=== PATIENT | female | born 1975 | race African-American/Black ===

== ENCOUNTER 2016-05-12 11:30 | Emergency (ER) | payer OTHER ==
[2016-05-12 11:45] VITALS: BP 169/107
--- NOTE | 2016-05-12 13:05 | ED ---
Throat Pain/Nasal Congestion - HPI Summary HPI Summary: Pt here w/ prolonged sinus pain/pressure/congestion. Has tried 2 rounds of anbx w/o relief through her PCP's office. Sx have been present for 3 weeks. Frustrated, not sleeping past few nights. Has been using afrin nasal spray w/o relief. Developing a frontal forehead now. Denies fever, chills, N/V/D, cough, ST, otalgia, trouble breathing, trouble swallowing. She is seen by ENT and had myringotomy - no otorrhea. Allergies in summer time - has not been taking anti- histamine since. - History of Current Complaint Chief Complaint: EDUpperRespComplaint Time Seen by Provider: 05/12/16 12:01 Hx Obtained From: Patient - Allergies/Home Medications Allergies/Adverse Reactions: Allergies Allergy/AdvReac Type Severity Reaction Status Date / Time Ciprofloxacin [From Cipro] Allergy Severe Hives Verified 02/13/16 15:51 Gatifloxacin [From TeQuin] Allergy Severe Hives Verified 02/13/16 15:51 Iodine Allergy Severe Anaphylatic Verified 02/13/16 15:51 Shock Penicillins Allergy Severe Hives Verified 02/13/16 15:51 Shellfish Allergy Allergy Severe Anaphylatic Verified 02/13/16 15:51 Shock Sulfamethoxazole Allergy Severe Hives Verified 02/13/16 15:51 w/Trimethoprim [From Bactrim] Latex Allergy Intermediate Hives Verified 02/13/16 15:51 PMH/Surg Hx/FS Hx/Imm Hx Previously Healthy: Yes Endocrine/Hematology History: Denies: Hx Anticoagulant Therapy, Hx Diabetes, Hx Sickle Cell Disease, Hx Thyroid Disease Cardiovascular History: Reports: Hx Hypertension - ON DAILY MEDS, STATES CONTROLLED Denies: Hx Pacemaker/ICD, Other Cardiovascular Problems/Disorders Respiratory History: Reports: Hx Asthma - CONTROLLED WITH MEDS, USED INHALERS - STATES OK TODAY, Hx Seasonal Allergies - summer Denies: Hx Chronic Obstructive Pulmonary Disease (COPD), Other Respiratory Problems/Disorders GI History: Reports: Hx Gastroesophageal Reflux Disease - ON MED PT.STATES CONTROLLED Denies: Hx Ulcer, Other GI Disorders History: Denies: Hx Renal Disease, Other Problems/Disorders Musculoskeletal History: Denies: Other Musculoskeletal History Sensory History: Denies: Hx Contacts or Glasses, Hx Deafness, Hx Hearing Aid, Hx Hearing Problem Opthamlomology History: Denies: Hx Contacts or Glasses Neurological History: Denies: Hx Dementia, Hx Seizures, Other Neuro Impairments/Disorders Psychiatric History: Reports: Hx Anxiety, Hx Depression Denies: Hx Panic Disorder, Hx Substance Abuse - Surgical History Surgery Procedure, Year, and Place: 2005- [place] [facility] [place] 2006 - Rt WRIST GANGLION CYST REMOVED [facility] [place] 05/22 Rt EAR LESION REMOVED [facility] [place]. D&C - 2008 [facility] [place] 2010- UTERINE ABLATION [facility] [place]. 2012 Rt FOOT - GANGLION CYST REMOVED- [facility] [place]. 2013 RT FOOT GANDLION CYST REMOVED [facility] [place]. REMOVAL OF OVARIAN [id number]. total hysterectomy september 2014 Hx Anesthesia Reactions: No - Immunization History Date of Tetanus Vaccine: Unknown Infectious Disease History: No Infectious Disease History: Denies: Hx Hepatitis, Hx Human Immunodeficiency Virus (HIV), Traveled Outside the [place] in Last 30 Days - Family History Known Family History: Positive: Hypertension, Diabetes - Social History Alcohol Use: Occasionally Alcohol Amount: MAYBE 1 DRINK/MONTH Hx Substance Use: No Substance Use Type: Reports: None Hx Tobacco Use: Yes - not currently smoking Smoking Status (MU): Former Smoker Type: Cigarettes Amount Used/How Often: 1 [id number] 3 YRS Length of Time of Smoking/Using Tobacco: 14 YRS Have You Smoked in the Last Year: Yes Review of Systems Negative: Fever, Chills Negative: Photophobia, Blurred Vision, Diplopia, Drainage, Erythema Positive: Nasal Discharge - nasal congestion - see HPI. Negative: Sore Throat, Ear Ache Negative: Chest Pain Negative: Shortness Of Breath, Cough Negative: Abdominal Pain, Vomiting, Diarrhea, Nausea Positive: no symptoms reported Musculoskeletal: Negative Negative: Rash Positive: Headache - see HPI Positive: Anxious - concerned All Other Systems Reviewed And Are Negative: Yes Physical Exam Triage Information Reviewed: Yes Vital Signs On Initial Exam: Initial Vitals Temp Pulse Resp BP Pulse Ox 98.4 F 85 20 169/107 99 05/12/16 11:41 05/12/16 11:41 05/12/16 11:41 05/12/16 11:41 05/12/16 11:41 Vital Signs Reviewed: Yes Appearance: Positive: Well-Appearing, Pain Distress - facial congestion causing distress, Obese Skin: Positive: Warm, Dry Head/Face: Positive: Other - sinuses NTTP; no facial asymmetry Eyes: Positive: Normal, EOMI, Conjunctiva Clear, Discharge - B/L watery eyes ENT: Positive: Hearing grossly normal, Nasal congestion - nasal passages appear to be occluded by mucosa, Nasal drainage - boggy turbinates - clear mucous d/c, TMs normal - tubes in place B/L - no d/c. Negative: Tonsillar swelling, Tonsillar exudate Neck: Positive: Supple, Nontender, No Lymphadenopathy Respiratory/Lung Sounds: Positive: Clear to Auscultation, Breath Sounds Present. Negative: Rales, Rhonchi, Stridor, Wheezes Cardiovascular: Positive: Normal, RRR, S1, S2. Negative: Murmur, Rub Musculoskeletal: Positive: Normal, Strength/ROM Intact Neurological: Positive: Normal, Sensory/Motor Intact, Alert, Oriented to Person Place, Time, CN Intact II-III Psychiatric: Positive: Anxious - tearful Diagnostics - Vital Signs Vital Signs Temp Pulse Resp BP Pulse Ox 05/12/16 11:41 98.4 F 85 20 169/107 99 - Laboratory Result Diagrams: 05/12/16 14:57 05/12/16 14:57 Lab Statement: Any lab studies that have been ordered have been reviewed, and results considered in the medical decision making process. EENT Course/Dx - Diagnoses Provider Diagnoses: Chronic sinusitis of both maxillary sinuses - Provider Notifications Discussed Care of Patient with: Dr. Soto - reviewed CT and does not appear to be infection, but rather chronic inflammation - will abstain from anbx and tx w/ steroids - to be followed up by Dr. Lopez next week as pt already sees him or eustachian tube dysfunction Discharge - Discharge Plan Condition: Stable Disposition: HOME Prescriptions: predniSONE TAB* [Deltasone TAB*] 10 mg PO DAILY #18 tab Patient Education Materials: Rhinosinusitis (ED) Referrals: Martínez Lopez MD [Medical Doctor] - Additional Instructions: You appear to have significant chronic sinusitis. You may take the steroids prescribed to you for relief of inflammation and pain. You may also take an anti -histamine before bed to reduce nasal swelling and discharge. Stop using Afrin nasal spray as you may be having a rebound effect. Follow-up with Dr. Lopez next week - call today to schedule an appointment. *If you develop change in vision, fever, vomiting or difficulty breathing, return to ED
--- NOTE | 2016-05-12 14:24 | RAD ---
HISTORY: Sinus pain COMPARISON: None TECHNIQUE: Contiguous axial CT images were obtained through the paranasal sinuses, without intravenous contrast, with coronal and sagittal multiplanar reformations. FINDINGS: NASAL CAVITY: Septum: The septum is midline without deviation. Right: Clear Left: There is a juventino bullosa of the left middle turbinate. SINUSES AND DRAINAGE PATHWAYS: Frontal sinuses: Unremarkable. Maxillary sinuses: There is mucosal thickening of the maxillary sinuses bilaterally, with polypoid mucosal thickening versus mucous retention cyst on the right. There is a small fluid on the left. Ethmoid sinuses: There is mucosal thickening of ethmoid air cells. Ostiomeatal complex: There is effacement of the ostiomeatal units bilaterally, greater on the right than on the left, by mucosal thickening. Sphenoid sinuses: Unremarkable. Anatomic variations: No significant variations. Orbits: Unremarkable. Anterior cranial fossa: Normal. Other findings: There is bilateral proptosis IMPRESSION: 1. MODERATE SINUS MUCOSAL INFLAMMATORY DISEASE, WITH AN AIR-FLUID LEVEL IN THE LEFT MAXILLARY. IN THE CORRECT CLINICAL SETTING, THIS MAY REPRESENT ACUTE SINUSITIS 2. BILATERAL PROPTOSIS.
[2016-05-12] MEDS ORDERED: methylPREDNISolone SOD 40 MG* 1 ML VIAL IM ONE (15:03)
[2016-05-12 15:08] LABS: Hematocrit 41 % (35-47); Hemoglobin 13.6 g/dl (12.0-16.0); Mean Corpuscular HGB Conc 33 g/dl (31-36); Mean Corpuscular Hemoglobin 29 pg (27-31); Mean Corpuscular Volume 88 fL (80-97); Mean Platelet Volume 7 um3 (7.4-10.4); Red Blood Count 4.68 10^6/ul (4.0-5.4); Red Cell Distribution Width 14 % (10.5-15); White Blood Count 6.5 10^3/ul (3.5-10.8)
[2016-05-12 15:23] LABS: BUN/Creatinine Ratio 8.6 (8-20); Calcium 9.7 mg/dL (8.6-10.3); EGFR African American 101.2 (>60); EGFR Non-African American 78.7 (>60); Potassium 3.7 mmol/L (3.5-5.0)
== END 2016-05-12 15:29 | disposition home or self-care (01) ==
LOC: ED 11:30
DX: J32.9 Chronic sinusitis, unspecified (principal); R09.81 Nasal congestion; R51 Headache; F41.9 Anxiety disorder, unspecified
CPT/HCPCS: 36415; 70486; 80048; 83605; 85025; 96372; 99281; J2920

== ENCOUNTER 2017-07-01 10:49 | Emergency (ER) | payer OTHER ==
--- NOTE | 2017-07-01 11:47 | ED ---
Lower Extremity - HPI Summary HPI Summary: 41-year-old female presents with left knee pain for the past 3 days. She states was at work when the pain started. Shee states the pain is at the posterior aspect of her left knee and radiates to the medial aspect of her knee. She denies any fevers or spreading redness. She didn't does not know of any injury. She states it hurts worse when she tries to move it. She has been taking ibuprofen without relief. She is smoker. She denies any recent travel or surgeries. She denies any family history of blood clots. She is not on control. She denies any chest pain or SOB. - History of Current Complaint Chief Complaint: EDExtremityLower Stated Complaint: LEFT KNEE PAIN Time Seen by Provider: 07/01/17 11:37 Pain Intensity: 10 - Allergies/Home Medications Allergies/Adverse Reactions: Allergies Allergy/AdvReac Type Severity Reaction Status Date / Time ciprofloxacin [From Cipro] Allergy Hives Verified 07/01/17 11:30 gatifloxacin [From Tequin] Allergy Rash Verified 07/01/17 11:31 Iodine and Iodide Containing Allergy Hives Verified 07/01/17 11:31 Produc latex Allergy Rash Verified 07/01/17 11:32 Penicillins Allergy Hives Verified 07/01/17 11:31 shellfish derived Allergy Anaphylatic Verified 07/01/17 11:32 Shock Sulfa (Sulfonamide Allergy Hives Verified 07/01/17 11:31 Antibiotics) PMH/Surg Hx/FS Hx/Imm Hx Endocrine/Hematology History: Denies: Hx Anticoagulant Therapy, Hx Diabetes, Hx Sickle Cell Disease, Hx Thyroid Disease Cardiovascular History: Reports: Hx Hypertension - ON DAILY MEDS, STATES CONTROLLED Denies: Hx Pacemaker/ICD, Other Cardiovascular Problems/Disorders Respiratory History: Reports: Hx Asthma - CONTROLLED WITH MEDS, USED INHALERS - STATES OK TODAY, Hx Seasonal Allergies - summer Denies: Hx Chronic Obstructive Pulmonary Disease (COPD), Other Respiratory Problems/Disorders GI History: Reports: Hx Gastroesophageal Reflux Disease - ON MED PT.STATES CONTROLLED Denies: Hx Ulcer, Other GI Disorders History: Denies: Hx Renal Disease, Other Problems/Disorders Musculoskeletal History: Denies: Other Musculoskeletal History Sensory History: Denies: Hx Contacts or Glasses, Hx Deafness, Hx Hearing Aid, Hx Hearing Problem Opthamlomology History: Denies: Hx Contacts or Glasses Neurological History: Denies: Hx Dementia, Hx Seizures, Other Neuro Impairments/Disorders Psychiatric History: Reports: Hx Anxiety, Hx Depression Denies: Hx Panic Disorder, Hx Substance Abuse - Surgical History Surgery Procedure, Year, and Place: 2006[place] [facility] [place]. 2006 - Rt WRIST [place]ION [place]ST [place] [facility] [place] Rt [place] [facility] [place] [facility] [place] [facility] [place] Rt [place] - GANGLION CYST [place] [facility] [place] 2013 RT FOOT GANGLION CYST [place] [facility] [place] REMOVAL OF OVARIAN [id number] Hx Anesthesia Reactions: No - Immunization History Date of Tetanus Vaccine: Unknown Infectious Disease History: No Infectious Disease History: Denies: Hx Hepatitis, Hx Human Immunodeficiency Virus (HIV), Traveled Outside the [place] in Last 30 Days - Family History Known Family History: Positive: None, Hypertension, Diabetes Negative: Blood Disorder - Social History Alcohol Use: Occasionally Alcohol Amount: MAYBE 1 DRINK/MONTH Hx Substance Use: No Substance Use Type: Reports: None Hx Tobacco Use: Yes - not currently smoking Smoking Status (MU): Former Smoker Type: Cigarettes Amount Used/How Often: 1 [id number] 3 YRS Length of Time of Smoking/Using Tobacco: 14 YRS Have You Smoked in the Last Year: Yes Review of Systems Negative: Fever Negative: Chest Pain Negative: Shortness Of Breath Positive: Myalgia - left knee pain All Other Systems Reviewed And Are Negative: Yes Physical Exam Triage Information Reviewed: Yes Vital Signs On Initial Exam: Initial Vitals Temp Pulse Resp BP Pulse Ox 98.2 F 77 16 162/104 98 07/01/17 11:25 07/01/17 11:25 07/01/17 11:25 07/01/17 11:25 07/01/17 11:25 Vital Signs Reviewed: Yes Appearance: Positive: Well-Appearing Skin: Positive: Warm, Dry Head/Face: Positive: Normal Head/Face Inspection Eyes: Positive: Normal, Conjunctiva Clear Respiratory/Lung Sounds: Positive: Clear to Auscultation, Breath Sounds Present Cardiovascular: Positive: Normal, RRR Musculoskeletal: Positive: Strength/ROM Intact - left knee with pain, Other - good pulses, capillary refill<2 secs, tenderness left knee behind knee and medical aspect of knee, neg ballotments, no warmth to area, sensation grossly intact. Negative: Jelena Sign Left, Edema Left Neurological: Positive: Normal Psychiatric: Positive: Normal Diagnostics - Vital Signs Vital Signs Temp Pulse Resp BP Pulse Ox 07/01/17 11:25 98.2 F 77 16 162/104 98 - Laboratory Lab Statement: Any lab studies that have been ordered have been reviewed, and results considered in the medical decision making process. - Radiology knee Xray Interpretation: Positive (See Comments) - arthritis worsening Radiology Interpretation Completed By: Radiologist - Ultrasound No standard instances Ultrasound Interpretation: No Acute Changes Ultrasound Interpretation Completed By: Radiologist Lower Extremity Course/Dx - Course Course Of Treatment: 41-year-old female presents with left knee pain for the past 3 days. She states was at work when the pain started. Shee states the pain is at the posterior aspect of her left knee and radiates to the medial aspect of her knee. She denies any fevers or spreading redness. She didn't does not know of any injury. She states it hurts worse when she tries to move it. She has been taking ibuprofen without relief. She is smoker. She denies any recent travel or surgeries. She denies any family history of blood clots. She is not on control. She denies any chest pain or SOB. on exam tenderness left posterior calf and knee. neurovascular intact. does not appear as septic joint. u/s not show dvt of area but can not totally exclude such. only risk factor has is smoking. will have follow up with primary for continued care as may need repeat u/s. xray shows worsening arthritis. will have follow up with primary and ortho. patient understand and agrees with plan. - Diagnoses Differential Diagnosis/HQI/PQRI: Positive: DVT, Fracture (Closed), Sprain Provider Diagnoses: Left knee pain Discharge - Sign-Out/Discharge Documenting (check all that apply): Discharge - Discharge Plan Condition: Stable Disposition: HOME Patient Education Materials: Knee Pain (ED) Referrals: Sameer Renteria MD [Primary Care Provider] - Immanuel Velez MD [Medical Doctor] - Additional Instructions: Take Tylenol or ibuprofen every 6 hours as needed for pain Apply ice, rest, elevate follow up with primary about knee pain Follow up with ortho Return to ED if develop any new or worsening symptoms - Billing Disposition and Condition Condition: STABLE Disposition: HOME
--- NOTE | 2017-07-01 12:44 | RAD ---
INDICATION: 3 days LEFT posterior knee pain without known injury. COMPARISON: July 01, 2017 radiographs. TECHNIQUE: Cardenas scale, color Doppler, and spectral analysis of the deep veins of the LEFT lower extremity. Vessel compression, phasicity, and augmentation assessed. REPORT: The LEFT common femoral, great saphenous, profunda femoral, and femoral veins are patent. There is venous stasis/slow flow at the proximal segment of the LEFT popliteal vein. The vein is incompletely compressible however tenderness on ultrasound assessment of this site limits ability to perform compression decreasing specificity of exam. The distal segment of the popliteal vein is duplicated and fully compressible without concern for thrombosis. Patency of the paired posterior tibial and peroneal calf veins documented. Patency of the RIGHT common femoral vein documented. IMPRESSION: 1. The proximal segment of the LEFT popliteal vein demonstrates slow flow and stasis. The vein is incompletely compressible however tenderness over this region limits assessment. Nonocclusive DVT at the proximal segment of the popliteal vein is not entirely excluded. 2. The remaining LEFT lower extremity veins appear patent.
--- NOTE | 2017-07-01 12:50 | RAD ---
Indication: LEFT knee pain with weightbearing. Posterior pain for 3 days. Similar episode 3 months ago. Comparison: August 01, 2000 Technique: LEFT knee: AP, tunnel, crosstable lateral, sunrise views. Report: Negative for joint effusion, fracture, or malalignment. Osteophytosis. Mild medial joint space narrowing and lateral facet patellofemoral joint space narrowing. Unremarkable soft tissue contours. 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
[2017-07-01] MEDS ORDERED: Acetaminophen TAB* 325 MG PO ONE (12:56)
[2017-07-01] MEDS ORDERED: Ketorolac INJ* 60 MG/2 ML VIAL IM ONE (12:59)
[2017-07-01 13:27] VITALS: BP 134/87
== END 2017-07-01 13:26 | disposition home or self-care (01) ==
LOC: ED 10:49
DX: M25.562 Pain in left knee (principal); Z87.891 Personal history of nicotine dependence; Z86.79 Personal history of other diseases of the circulatory system; Z87.19 Personal history of other diseases of the digestive system
CPT/HCPCS: 96372; 99283; A9270-GY; J1885

== ENCOUNTER 2017-08-03 23:15 | Emergency (ER) | payer OTHER ==
--- OUTSIDE RECORDS SUMMARY | 2017-08-03 23:41 | XMS REPORT ---
:1975 External Reference #:[id number] Author Organization [facility] Address [address] [address] Phone [phone] Care Team Providers Name Role Phone Elijah Jackson MD Primary Care Physician Unavailable Payers Type Date Identification Numbers Payment Provider Subscriber Commercial Policy Number: [id number] [employer] Margarita Santana PayID: [id number] [address] [address] [place] [address] Problems Description No Information Family History Date Family Member(s) Problem(s) Comments General Hypertension Social History Type Date Description Comments Lives With Son Occupation Currently Working ETOH Use Occasionally consumes alcohol Smoking Patient is a current smoker, smokes every day Allergies, Adverse Reactions, Alerts Date Description Reaction Status Severity Comments 07/15/2017 Ciprofloxacin active hives 07/15/2017 Gatifloxacin active rash 07/15/2017 Iodine active hives 07/15/2017 Latex active rash 07/15/2017 Penicillin active hives 07/15/2017 Sulfa Antibiotics active hives Medications Medication Date Status Form Strength Qnty SIG Indications Ordering Provider No Active 07/15/2017 Active Unknown Medications Vital Signs Date Vital Result Comment 07/15/2017 Height 65 inches 5'5" Weight 270.00 lb BP Systolic 148 mmHg BP Diastolic 94 mmHg Respiratory Rate 20 /min Body Temperature 98.2 F Pain Level 9 BMI (Body Mass Index) 44.9 kg/m2 Results Description No Information Procedures Description No Information Plan of Care 07/15/2017 - Mike Justin M.D.M17.12 Unilateral primary osteoarthritis, left kneeNew Therapy:Physical Therapy
--- OUTSIDE RECORDS SUMMARY | 2017-08-03 23:43 | XMS REPORT ---
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 Body Temperature 97.6 F Respiratory Rate 16 /min Height 65 inches 5'5" Weight 271.25 lb BMI (Body Mass Index) 45.1 kg/m2 04/08/2016 BP Systolic 142 mmHg BP Diastolic 100 mmHg Heart Rate 100 /min Body Temperature 97.5 F Height 65 inches 5'5" Weight 260.12 lb BMI (Body Mass Index) 43.3 kg/m2 06/27/2015 BP Systolic 180 mmHg BP Diastolic 120 mmHg Heart Rate 88 /min Body Temperature 97.8 F Height 65 inches 5'5" Weight 262.00 lb BMI (Body Mass Index) 43.6 kg/m2 04/16/2015 BP Systolic 134 mmHg BP Diastolic 70 mmHg Heart Rate 97 /min Body Temperature 99.1 F Respiratory Rate 20 /min O2 % BldC Oximetry 98 % Height 65 inches 5'5" 04/09/2015 BP Systolic 120 mmHg BP Diastolic 80 mmHg Heart Rate 76 /min Body Temperature 99.0 F Respiratory Rate 18 /min Height 65 inches 5'5" Weight 256.00 lb BMI (Body Mass Index) 42.6 kg/m2 06/14/2014 BP Systolic 132 mmHg BP Diastolic 80 mmHg Heart Rate 80 /min Body Temperature 97.4 F Respiratory Rate 18 /min Height 65 inches 5'5" Weight 247.00 lb BMI (Body Mass Index) 41.1 kg/m2 04/26/2014 BP Systolic 146 mmHg BP Diastolic 84 mmHg Heart Rate 90 /min Body Temperature 98.6 F Respiratory Rate 18 /min Height 65 inches 5'5" Weight 247.38 lb BMI (Body Mass Index) 41.2 kg/m2 03/15/2014 BP Systolic 128 mmHg BP Diastolic 68 mmHg Heart Rate 76 /min Body Temperature 97.3 F Respiratory Rate 18 /min Height 65 inches 5'5" Weight 245.00 lb BMI (Body Mass Index) 40.8 kg/m2 03/01/2014 BP Systolic 148 mmHg BP Diastolic 90 mmHg Heart Rate 72 /min Body Temperature 98.0 F Respiratory Rate 18 /min Height 65 inches 5'5" Weight 243.00 lb BMI (Body Mass Index) 40.4 kg/m2 02/08/2014 BP Systolic 160 mmHg BP Diastolic 110 mmHg Heart Rate 76 /min Body Temperature 97.6 F Respiratory Rate 20 /min Height 65 inches 5'5" Weight 242.00 lb BMI (Body Mass Index) 40.3 kg/m2 01/25/2014 BP Systolic 168 mmHg BP Diastolic 100 mmHg Heart Rate 72 /min Body Temperature 98.1 F Respiratory Rate 18 /min Height 65 inches 5'5" Weight 242.00 lb BMI (Body Mass Index) 40.3 kg/m2 01/20/2014 BP Systolic 180 mmHg BP Diastolic 130 mmHg BP Systolic Recheck 210 mmHg 10 min later BP Diastolic Recheck 140 mmHg 10 min later Heart Rate 84 /min 01/13/2014 BP Systolic 170 mmHg BP Diastolic 140 mmHg BP Systolic Recheck 170 mmHg BP Diastolic Recheck 100 mmHg Heart Rate 84 /min Body Temperature 97.0 F Respiratory Rate 16 /min Height 65 inches 5'5" Weight 238.00 lb BMI (Body Mass Index) 39.6 kg/m2 11/18/2013 BP Systolic 130 mmHg BP Diastolic 90 mmHg Heart Rate 76 /min Body Temperature 97.9 F Respiratory Rate 18 /min Height 65 inches 5'5" Weight 240.00 lb BMI (Body Mass Index) 39.9 kg/m2 07/18/2013 BP Systolic 136 mmHg BP Diastolic 80 mmHg Heart Rate 76 /min Body Temperature 97.4 F Respiratory Rate 20 /min Height 65 inches 5'5" Weight 252.00 lb BMI (Body Mass Index) 41.9 kg/m2 04/15/2013 BP Systolic 140 mmHg BP Diastolic 90 mmHg Heart Rate 74 /min Body Temperature 98.4 F Respiratory Rate 18 /min Height 65 inches 5'5" Weight 250.00 lb BMI (Body Mass Index) 41.6 kg/m2 11/22/2012 BP Systolic 140 mmHg BP Diastolic 90 mmHg Heart Rate 80 /min Body Temperature 97.7 F Respiratory Rate 16 /min Height 65 inches 5'5" Weight 245.38 lb BMI (Body Mass Index) 40.8 kg/m2 11/03/2012 Heart Rate 84 /min Body Temperature 98.2 F Respiratory Rate 15 /min Height 65 inches 5'5" 06/15/2012 BP Systolic 150 mmHg BP Diastolic 100 mmHg Heart Rate 96 /min Body Temperature 98.8 F Height 65 inches 5'5" Weight 249.00 lb BMI (Body Mass Index) 41.4 kg/m2 04/29/2012 BP Systolic 150 mmHg BP Diastolic 90 mmHg Heart Rate 78 /min Body Temperature 98.2 F Height 65 inches 5'5" Weight 249.12 lb BMI (Body Mass Index) 41.5 kg/m2 03/08/2012 BP Systolic 150 mmHg BP Diastolic 110 mmHg Heart Rate 84 /min Body Temperature 98.9 F Height 65 inches 5'5" Weight 243.00 lb BMI (Body Mass Index) 40.4 kg/m2 03/01/2012 BP Systolic 128 mmHg BP Diastolic 90 mmHg Heart Rate 70 /min Body Temperature 97.5 F Height 65 inches 5'5" Weight 243.00 lb BMI (Body Mass Index) 40.4 kg/m2 01/05/2012 BP Systolic 130 mmHg BP Diastolic 90 mmHg Heart Rate 80 /min Body Temperature 98.2 F Height 65 inches 5'5" 12/22/2011 BP Systolic 152 mmHg BP Diastolic 102 mmHg Heart Rate 80 /min Body Temperature 97.6 F Height 65 inches 5'5" Weight 252.00 lb BMI (Body Mass Index) 41.9 kg/m2 10/01/2011 BP Systolic 110 mmHg BP Diastolic 88 mmHg Heart Rate 68 /min Body Temperature 98.9 F Height 65 inches 5'5" Weight 249.00 lb BMI (Body Mass Index) 41.4 kg/m2 09/24/2011 BP Systolic 150 mmHg BP Diastolic 100 mmHg Heart Rate 80 /min Body Temperature 98.4 F Height 65 inches 5'5" Weight 249.00 lb BMI (Body Mass Index) 41.4 kg/m2 09/19/2011 BP Systolic 128 mmHg BP Diastolic 80 mmHg Heart Rate 76 /min Body Temperature 98.4 F Height 65 inches 5'5" Weight 249.00 lb BMI (Body Mass Index) 41.4 kg/m2 08/18/2011 BP Systolic 146 mmHg BP Diastolic 98 mmHg Heart Rate 78 /min Body Temperature 98.4 F Respiratory Rate 24 /min O2 % BldC Oximetry 98 % Height 65 inches 5'5" Weight 250.00 lb BMI (Body Mass Index) 41.6 kg/m2 05/29/2011 BP Systolic 120 mmHg BP Diastolic 82 mmHg Heart Rate 72 /min Body Temperature 98.2 F Respiratory Rate 16 /min Height 65 inches 5'5" Weight 245.00 lb BMI (Body Mass Index) 40.8 kg/m2 04/05/2011 BP Systolic 138 mmHg BP Diastolic 74 mmHg Heart Rate 102 /min Body Temperature 96.2 F Respiratory Rate 22 /min O2 % BldC Oximetry 98 % Height 65 inches 5'5" Weight 245.00 lb BMI (Body Mass Index) 40.8 kg/m2 03/19/2011 BP Systolic 120 mmHg BP Diastolic 80 mmHg Heart Rate 68 /min Height 65 inches 5'5" Weight 249.00 lb BMI (Body Mass Index) 41.4 kg/m2 03/01/2011 BP Systolic 148 mmHg BP Diastolic 84 mmHg Heart Rate 96 /min Body Temperature 96.8 F Height 65 inches 5'5" Weight 140.00 lb BMI (Body Mass Index) 23.3 kg/m2 02/18/2011 BP Systolic 130 mmHg BP Diastolic 90 mmHg Heart Rate 72 /min Body Temperature 97.9 F Respiratory Rate 17 /min O2 % BldC Oximetry 98 % Height 65 inches 5'5" Weight 240.00 lb BMI (Body Mass Index) 39.9 kg/m2 01/24/2011 BP Systolic 154 mmHg BP Diastolic 120 mmHg Heart Rate 72 /min Body Temperature 98.1 F Height 65 inches 5'5" Weight 249.00 lb BMI (Body Mass Index) 41.4 kg/m2 12/25/2010 BP Systolic 136 mmHg BP Diastolic 100 mmHg Heart Rate 120 /min Body Temperature 98.5 F Height 65 inches 5'5" Weight 248.50 lb BMI (Body Mass Index) 41.3 kg/m2 11/14/2010 BP Systolic 118 mmHg BP Diastolic 80 mmHg Heart Rate 56 /min Body Temperature 97.9 F Height 65 inches 5'5" Weight 250.00 lb BMI (Body Mass Index) 41.6 kg/m2 10/23/2010 BP Systolic 130 mmHg BP Diastolic 90 mmHg Heart Rate 72 /min Respiratory Rate 15 /min Height 65 inches 5'5" Weight 250.00 lb BMI (Body Mass Index) 41.6 kg/m2 09/05/2010 BP Systolic 120 mmHg BP Diastolic 86 mmHg Heart Rate 88 /min Body Temperature 98.1 F Height 65 inches 5'5" Weight 246.00 lb BMI (Body Mass Index) 40.9 kg/m2 06/25/2010 BP Systolic 130 mmHg BP Diastolic 72 mmHg Heart Rate 68 /min Respiratory Rate 15 /min Height 65 inches 5'5" Weight 249.00 lb BMI (Body Mass Index) 41.4 kg/m2 03/15/2010 Body Temperature 97.5 F 02/08/2010 BP Systolic 160 mmHg BP Diastolic 120 mmHg Heart Rate 84 /min Body Temperature 97.6 F Respiratory Rate 16 /min O2 % BldC Oximetry 98 % Height 65 inches 5'5" Weight 232.00 lb BMI (Body Mass Index) 38.6 kg/m2 12/31/2009 BP Systolic 120 mmHg BP Diastolic 80 mmHg Heart Rate 77 /min Body Temperature 98.4 F Height 65 inches 5'5" Weight 230.00 lb BMI (Body Mass Index) 38.3 kg/m2 12/25/2009 BP Systolic 130 mmHg BP Diastolic 100 mmHg Heart Rate 78 /min Body Temperature 97.5 F Height 65 inches 5'5" Weight 230.00 lb BMI (Body Mass Index) 38.3 kg/m2 10/29/2009 BP Systolic 118 mmHg BP Diastolic 74 mmHg Heart Rate 66 /min Body Temperature 98.3 F Height 65 inches 5'5" Weight 237.00 lb BMI (Body Mass Index) 39.4 kg/m2 08/15/2009 BP Systolic 120 mmHg BP Diastolic 78 mmHg Heart Rate 88 /min Body Temperature 98.5 F Weight 246.00 lb 05/08/2009 BP Systolic 128 mmHg BP Diastolic 70 mmHg Heart Rate 78 /min Body Temperature 98.3 F Height 65 inches 5'5" Weight 246.00 lb BMI (Body Mass Index) 40.9 kg/m2 04/18/2009 BP Systolic 130 mmHg BP Diastolic 80 mmHg Heart Rate 80 /min Weight 242.00 lb 11/08/2008 BP Systolic 134 mmHg BP Diastolic 90 mmHg Heart Rate 88 /min Height 65 inches 5'5" Weight 243.00 lb BMI (Body Mass Index) 40.4 kg/m2 09/25/2008 BP Systolic 120 mmHg BP Diastolic 60 mmHg Heart Rate 90 /min Body Temperature 98.7 F Weight 246.00 lb 08/28/2008 BP Systolic 130 mmHg BP Diastolic 80 mmHg Heart Rate 64 /min Body Temperature 98.6 F Weight 249.00 lb 07/10/2008 BP Systolic 130 mmHg BP Diastolic 90 mmHg Heart Rate 88 /min Body Temperature 98.7 F Weight 245.00 lb 02/05/2008 BP Systolic 128 mmHg BP Diastolic 80 mmHg Body Temperature 97.7 F Height 65 inches 5'5" Weight 238.00 lb BMI (Body Mass Index) 39.6 kg/m2 01/24/2008 BP Systolic 136 mmHg BP Diastolic 80 mmHg Heart Rate 80 /min Body Temperature 98.6 F Height 65 inches 5'5" Weight 237.00 lb BMI (Body Mass Index) 39.4 kg/m2 09/15/2007 BP Systolic 132 mmHg BP Diastolic 80 mmHg BP Systolic Recheck . mmHg Heart Rate 80 /min Height 65 inches 5'5" Weight 240.00 lb BMI (Body Mass Index) 39.9 kg/m2 07/24/2007 BP Systolic 130 mmHg BP Diastolic 80 mmHg Heart Rate 80 /min Body Temperature 97.9 F Height 65 inches 5'5" Weight 240.00 lb BMI (Body Mass Index) 39.9 kg/m2 06/09/2007 BP Systolic 138 mmHg BP Diastolic 80 mmHg Heart Rate 100 /min Body Temperature 96.0 F Respiratory Rate 16 /min Weight 241.00 lb 05/01/2007 BP Systolic 122 mmHg BP Diastolic 80 mmHg Heart Rate 90 /min Body Temperature 96.2 F Weight 235.00 lb 04/14/2007 BP Systolic 106 mmHg BP Diastolic 70 mmHg Heart Rate 84 /min Weight 237.00 lb 08/19/2006 BP Systolic 100 mmHg BP Diastolic 50 mmHg Heart Rate 72 /min Body Temperature 98.2 F Weight 225.00 lb 07/31/2006 BP Systolic 130 mmHg BP Diastolic 80 mmHg Heart Rate 72 /min Weight 232.00 lb 07/06/2006 BP Systolic 136 mmHg BP Diastolic 90 mmHg Heart Rate 84 /min Body Temperature 98.4 F Weight 230.00 lb 07/03/2006 BP Systolic 120 mmHg BP Diastolic 64 mmHg Heart Rate 84 /min Body Temperature 97.7 F 02/17/2006 BP Systolic 116 mmHg BP Diastolic 76 mmHg Heart Rate 60 /min Body Temperature 98.6 F Weight 218.00 lb 07/14/2005 BP Systolic 120 mmHg BP Diastolic 80 mmHg Body Temperature 99.0 F Weight 208.00 lb 04/23/2005 BP Systolic 118 mmHg BP Diastolic 80 mmHg Heart Rate 84 /min Body Temperature 97.9 F Weight 216.00 lb 04/15/2005 BP Systolic 120 mmHg BP Diastolic 80 mmHg Heart Rate 84 /min Body Temperature 97.6 F Weight 216.00 lb 03/05/2005 BP Systolic 128 mmHg BP Diastolic 86 mmHg Heart Rate 76 /min Body Temperature 96.6 F Weight 210.00 lb 10/15/2004 BP Systolic 138 mmHg BP Diastolic 94 mmHg Heart Rate 78 /min Body Temperature 98.5 F O2 % BldC Oximetry 93 % 07/20/2004 BP Systolic 126 mmHg BP Diastolic 80 mmHg Heart Rate 96 /min Body Temperature 97.9 F 07/18/2004 BP Systolic 130 mmHg LG Cuff BP Diastolic 80 mmHg LG Cuff Heart Rate 72 /min Body Temperature 98.0 F With Motrin Respiratory Rate 20 /min O2 % BldC Oximetry 99 % Weight 217.00 lb 07/15/2004 BP Systolic 122 mmHg BP Diastolic 70 mmHg Heart Rate 80 /min Weight 220.00 lb 04/24/2004 BP Systolic 130 mmHg BP Diastolic 90 mmHg Heart Rate 68 /min Weight 219.00 lb 06/21/2003 BP Systolic 104 mmHg BP Diastolic 70 mmHg Heart Rate 72 /min Body Temperature 97.7 F Weight 240.00 lb 06/14/2003 BP Systolic 126 mmHg BP Diastolic 78 mmHg Heart Rate 80 /min Body Temperature 98.9 F 03/27/2003 BP Systolic 120 mmHg BP Diastolic 90 mmHg Body Temperature 98.5 F Weight 246.00 lb 02/07/2003 BP Systolic 134 mmHg BP Diastolic 82 mmHg Heart Rate 80 /min Weight 240.00 lb 10/17/2002 BP Systolic 136 mmHg BP Diastolic 70 mmHg Heart Rate 82 /min Weight 240.00 lb 08/18/2002 BP Systolic 136 mmHg BP Diastolic 82 mmHg Heart Rate 80 /min Weight 242.00 lb 06/22/2002 BP Systolic 124 mmHg BP Diastolic 84 mmHg Heart Rate 84 /min Body Temperature 96.7 F Weight 234.00 lb 05/06/2002 BP Systolic 130 mmHg BP Diastolic 80 mmHg Heart Rate 88 /min Body Temperature 98.8 F Weight 232.00 lb 12/31/2001 BP Systolic 124 mmHg BP Diastolic 80 mmHg Heart Rate 72 /min Weight 234.00 lb 12/21/2001 BP Systolic 132 mmHg BP Diastolic 92 mmHg Heart Rate 76 /min Body Temperature 97.8 F 08/23/2001 BP Systolic 112 mmHg BP Diastolic 80 mmHg Body Temperature 98.1 F Weight 239.00 lb 02/25/2001 BP Systolic 110 mmHg BP Diastolic 70 mmHg Heart Rate 97.5 /min Weight 237.00 lb 12/25/2000 BP Systolic 134 mmHg BP Diastolic 86 mmHg Heart Rate 88 /min Body Temperature 98.2 F Weight 239.00 lb 12/15/2000 BP Systolic 118 mmHg BP Diastolic 72 mmHg Heart Rate 84 /min Weight 238.00 lb 12/02/2000 BP Systolic 126 mmHg BP Diastolic 80 mmHg Heart Rate 80 /min Body Temperature 97.6 F Respiratory Rate 16 /min Weight 238.00 lb Results Test Date Test Result H/L Range Note CBC Auto Diff 05/12/2016 White Blood Count 6.5 10^3/uL 3.5-10.8 Red Blood Count 4.68 10^6/uL 4.0-5.4 Hemoglobin 13.6 g/dL 12.0-16.0 Hematocrit 41 % 35-47 Mean Corpuscular Volume 88 fL 80-97 Mean Corpuscular Hemoglobin 29 pg 27-31 Mean Corpuscular HGB Conc 33 g/dL 31-36 Red Cell Distribution Width 14 % 10.5-15 Platelet Count 293 10^3/uL 150-450 Mean Platelet Volume 7 um3 Low 7.4-10.4 Abs Neutrophils 3.1 10^3/uL 1.5-7.7 Abs Lymphocytes 2.6 10^3/uL 1.0-4.8 Abs Monocytes 0.3 10^3/uL 0-0.8 Abs Eosinophils 0.5 10^3/uL 0-0.6 Abs Basophils 0 10^3/uL 0-0.2 Abs Nucleated RBC 0 10^3/uL Granulocyte % 47.9 % 38-83 Lymphocyte % 39.3 % 25-47 Monocyte % 5.3 % 1-9 Eosinophil % 6.9 % High 0-6 Basophil % 0.6 % 0-2 Nucleated Red Blood Cells % 0.1 Laboratory test finding 05/12/2016 Lactic Acid 1.0 mmol/L 0.5-2.0 1 Basic Metabolic Panel 05/12/2016 Sodium 138 mmol/L 133-145 Potassium 3.7 mmol/L 3.5-5.0 Chloride 105 mmol/L 101-111 Co2 Carbon Dioxide 28 mmol/L 22-32 Anion Gap 5 mmol/L 2-11 Glucose 83 mg/dL 70-100 Blood Urea Nitrogen 7 mg/dL 6-24 Creatinine 0.81 mg/dL 0.51-0.95 BUN/Creatinine Ratio 8.6 8-20 Calcium 9.7 mg/dL 8.6-10.3 Egfr Non- 78.7 >60 Egfr 101.2 >60 2 Laboratory test finding 04/28/2016 Uric Acid 3.4 mg/dL 2.3-6.6 C Reactive Protein 8.00 mg/L High < 5.00 3 CBC No Diff 04/28/2016 White Blood Count 6.9 10^3/uL 3.5-10.8 Red Blood Count 4.80 10^6/uL 4.0-5.4 Hemoglobin 13.9 g/dL 12.0-16.0 Hematocrit 42 % 35-47 Mean Corpuscular Volume 88 fL 80-97 Mean Corpuscular Hemoglobin 29 pg 27-31 Mean Corpuscular HGB Conc 33 g/dL 31-36 Red Cell Distribution Width 14 % 10.5-15 Platelet Count 306 10^3/uL 150-450 Mean Platelet Volume 7 um3 Low 7.4-10.4 Laboratory test finding 04/28/2016 Erythrocyte Sed Rate 49 mm/Hr High 0- 14 CBC Auto Diff 02/13/2016 White Blood Count 6.2 10^3/uL 3.5-10.8 Red Blood Count 4.61 10^6/uL 4.0-5.4 Hemoglobin 13.5 g/dL 12.0-16.0 Hematocrit 40 % 35-47 Mean Corpuscular Volume 87 fL 80-97 Mean Corpuscular Hemoglobin 29 pg 27-31 Mean Corpuscular HGB Conc 34 g/dL 31-36 Red Cell Distribution Width 14 % 10.5-15 Platelet Count 278 10^3/uL 150-450 Mean Platelet Volume 7 um3 Low 7.4-10.4 Abs Neutrophils 3.7 10^3/uL 1.5-7.7 Abs Lymphocytes 1.7 10^3/uL 1.0-4.8 Abs Monocytes 0.4 10^3/uL 0-0.8 Abs Eosinophils 0.2 10^3/uL 0-0.6 Abs Basophils 0.1 10^3/uL 0-0.2 Abs Nucleated RBC 0.01 10^3/uL Granulocyte % 60.2 % 38-83 Lymphocyte % 28.2 % 25-47 Monocyte % 7.0 % 1-9 Eosinophil % 3.7 % 0-6 Basophil % 0.9 % 0-2 Nucleated Red Blood Cells % 0.1 Comp Metabolic Panel 02/13/2016 Sodium 137 mmol/L 133-145 Potassium 3.7 mmol/L 3.5-5.0 Chloride 105 mmol/L 101-111 Co2 Carbon Dioxide 24 mmol/L 22-32 Anion Gap 8 mmol/L 2-11 Glucose 85 mg/dL 70-100 Blood Urea Nitrogen 10 mg/dL 6-24 Creatinine 0.83 mg/dL 0.51-0.95 BUN/Creatinine Ratio 12.0 8-20 Calcium 9.6 mg/dL 8.6-10.3 Total Protein 8.2 g/dL 6.4-8.9 Albumin 4.4 g/dL 3.2-5.2 Globulin 3.8 g/dL 2-4 Albumin/Globulin Ratio 1.2 1-3 Total Bilirubin 0.50 mg/dL 0.2-1.0 Alkaline Phosphatase 189 U/L High 34-104 Alt 33 U/L 7-52 Ast 32 U/L 13-39 Egfr Non- 76.5 >60 Egfr 98.4 >60 4 Rapid Influenza A & B 02/13/2016 Influenza A Molecular NEGATIVE Negative 5 Molecular Influenza B Molecular NEGATIVE Negative Laboratory test 02/13/2016 Rapid Influenza A SEE RESULT BELOW 6 finding & B Antigen Laboratory test 06/04/2015 Rapid Strep Negative Negative 7 finding Molecular Throat Beta Strep Culture SEE RESULT BELOW 8 Laboratory test 06/04/2015 Rapid Strep A SEE RESULT BELOW 9 finding Laboratory test 10/19/2014 Urine Culture And SEE RESULT BELOW 10 finding Sensitivities CBC Auto Diff 10/19/2014 White Blood Count 5.8 10^3/uL 4.8-10.8 Red Blood Count 4.22 10^6/uL 4.0-5.4 Hemoglobin 12.6 g/dL 12.0-16.0 Hematocrit 39 % 35-47 Mean Corpuscular Volume 91 fL 80-97 Mean Corpuscular Hemoglobin 30 pg 27-31 Mean Corpuscular HGB Conc 33 g/dL 31-36 Red Cell Distribution Width 14 % 10.5-15 Platelet Count 340 10^3/uL 150-450 Mean Platelet Volume 7 um3 Low 7.4-10.4 Abs Neutrophils 3.1 10^3/uL 1.5-7.7 Abs Lymphocytes 2.1 10^3/uL 1.0-4.8 Abs Monocytes 0.3 10^3/uL 0-0.8 Abs Eosinophils 0.4 10^3/uL 0-0.6 Abs Basophils 0 10^3/uL 0-0.2 Abs Nucleated RBC 0 10^3/uL Granulocyte % 52.4 % 38-83 Lymphocyte % 36.2 % 25-47 Monocyte % 4.4 % 1-9 Eosinophil % 6.5 % High 0-6 Basophil % 0.5 % 0-2 Nucleated Red Blood Cells % 0.1 Comp Metabolic Panel 10/19/2014 Sodium 140 mmol/L 133-145 Potassium 3.9 mmol/L 3.5-5.0 Chloride 107 mmol/L 101-111 Co2 Carbon Dioxide 28 mmol/L 22-32 Anion Gap 5 mmol/L 2-11 Glucose 83 mg/dL 70-100 Blood Urea Nitrogen 7 mg/dL 6-24 Creatinine 0.77 mg/dL 0.51-0.95 BUN/Creatinine Ratio 9.1 8-20 Total Protein 7.4 g/dL 6.4-8.9 Albumin 4.0 g/dL 3.2-5.2 Globulin 3.4 g/dL 2-4 Albumin/Globulin Ratio 1.2 1-3 Total Bilirubin 0.30 mg/dL 0.2-1.0 Alkaline Phosphatase 220 U/L High 34-104 Alt 29 U/L 7-52 Ast 23 U/L 13-39 Egfr Non- 83.9 >60 Egfr 107.9 >60 11 Calcium 9.1 mg/dL 8.6-10.3 Laboratory test finding 04/26/2014 Quickstrep POSITIVE Negative Basic Metabolic Profile 01/25/2014 Sodium 142 mEq/L 134-149 Potassium 4.0 mEq/L 3.6-5.5 Chloride 105 mEq/L 94-112 Carbon Dioxide 27 mEq/L 21-32 Glucose 85 mg/dL 70-105 BUN 11 mg/dL 6-26 Creatinine 0.9 mg/dL 0.6-1.4 BUN/Creat Ratio 12.2 CALC 8.0-36.0 Calcium 9.8 mg/dL 8.6-10.2 CBC Electronic (a) 01/25/2014 WBC 7.5 3.6-9.6 RBC 4.18 3.90-5.70 Hemoglobin (Fma/CMC/CTX) 12.8 g/dL 12.1 - 17.2 Hematocrit (Fma/CMC/CTX) 36.8 % 36.1 - 50.3 Platelets 283 10^3/ul 150-400 Lymph% 30.2 % 17.0-48.0 Mixed% 6.4 Neutrophils % 63.4 Mean Corpuscular Vol 88 82.2-97.4 Mean Corpuscular Hemoglobin 30.5 27.6-33.3 Mean Corpuscular Hemo Concen 34.7 32.0-36.0 RDW 14.1 High 11.6-13.7 Mean Platelet Volume 6.2 5.5-11.0 Basic Metabolic Panel 08/10/2013 Sodium 138 mmol/L 133-145 Potassium 4.2 mmol/L 3.7-5.6 Chloride 108 mmol/L 101-111 Co2 Carbon Dioxide 24 mmol/L 22-32 Anion Gap 6 mmol/L 2-11 Glucose 94 mg/dL 70-100 Blood Urea Nitrogen 8 mg/dL 6-24 Creatinine 0.77 mg/dL 0.51-0.95 BUN/Creatinine Ratio 10.4 8-20 Calcium 8.7 mg/dL 8.6-10.3 Egfr Non- 84.8 >60 Egfr 109.1 >60 12 Urinalysis 08/10/2013 Urine Color Yellow Urine Appearance Clear Urine Specific [place] 1.019 1.010-1.030 Urine Esterase Negative Negative Urine Nitrate Negative Negative Urine Urobilinogen Negative E.U./dL Negative Urine Protein Negative mg/dL Negative Urine pH 6.0 5-9 Urine Blood Trace Negative Urine Ketones Negative mg/dL Negative Urine Bilirubin Negative Negative Urine Glucose Negative mg/dL Negative CBC Auto Diff 08/10/2013 White Blood Count 5.9 10^3/uL 4.8-10.8 Red Blood Count 4.17 10^6/uL 4.0-5.4 Hemoglobin 13.0 g/dL 12.0-16.0 Hematocrit 38 % 35-47 Mean Corpuscular Volume 91 fL 80-97 Mean Corpuscular Hemoglobin 31 pg 27-31 Mean Corpuscular HGB Conc 34 g/dL 31-36 Red Cell Distribution Width 13 % 10.5-15 Platelet Count 264 10^3/uL 150-450 Mean Platelet Volume 8 um3 7.4-10.4 Abs Neutrophils 3.7 10^3/uL 1.5-7.7 Abs Lymphocytes 1.7 10^3/uL 1.0-4.8 Abs Monocytes 0.3 10^3/uL 0-0.8 Abs Eosinophils 0.2 10^3/uL 0-0.6 Abs Basophils 0.1 10^3/uL 0-0.2 Abs Nucleated RBC 0.01 10^3/uL Granulocyte % 62.6 % 38-83 Lymphocyte % 28.7 % 25-47 Monocyte % 5.0 % 1-9 Eosinophil % 2.7 % 0-6 Basophil % 1.0 % 0-2 Nucleated Red Blood Cells % 0.1 Urine Microscopic 08/10/2013 Urine WBC None Seen None Seen Urine RBC None Seen None Seen Bacteria Urine None Seen None Seen Laboratory test finding 06/23/2013 Amylase 46 U/L 29-103 Lipase 17 U/L 11.0-82.0 13 Creatine Kinase 167 U/L 10-223 14 C Reactive Protein 13.60 mg/L High < 5.00 15 Comp Metabolic Panel 06/23/2013 Sodium 136 mmol/L 133-145 Potassium TNP mmol/L 3.7-5.6 16 Chloride 106 mmol/L 101-111 Co2 Carbon Dioxide 24 mmol/L 22-32 Glucose 91 mg/dL 70-100 17 Blood Urea Nitrogen 8 mg/dL 6-24 18 Creatinine 0.84 mg/dL 0.51-0.95 19 BUN/Creatinine Ratio 9.5 8-20 Calcium 8.8 mg/dL 8.6-10.3 20 Total Protein 7.3 g/dL 6.4-8.9 21 Albumin 4.1 g/dL 3.2-5.2 22 Globulin 3.2 g/dL 2-4 Albumin/Globulin Ratio 1.3 1-3 Total Bilirubin 0.40 mg/dL 0.2-1.0 23 Alkaline Phosphatase 118 U/L High 34-104 24 Alt 43 U/L 7-52 25 Ast TNP U/L 13-39 26 Egfr Non- 76.7 >60 Egfr 98.7 >60 27 Laboratory test finding 06/23/2013 Lactic Acid 1.0 mmol/L 0.5-2.2 CBC Auto Diff 06/23/2013 White Blood Count 6.4 10^3/uL 4.8-10.8 Red Blood Count 4.29 10^6/uL 4.0-5.4 Hemoglobin 13.1 g/dL 12.0-16.0 Hematocrit 39 % 35-47 Mean Corpuscular Volume 91 fL 80-97 Mean Corpuscular Hemoglobin 31 pg 27-31 Mean Corpuscular HGB Conc 34 g/dL 31-36 Red Cell Distribution Width 13 % 10.5-15 Platelet Count 263 10^3/uL 150-450 Mean Platelet Volume 7 um3 Low 7.4-10.4 Abs Neutrophils 4.5 10^3/uL 1.5-7.7 Abs Lymphocytes 1.5 10^3/uL 1.0-4.8 Abs Monocytes 0.3 10^3/uL 0-0.8 Abs Eosinophils 0.1 10^3/uL 0-0.6 Abs Basophils 0 10^3/uL 0-0.2 Abs Nucleated RBC 0 10^3/uL Granulocyte % 70.0 % 38-83 Lymphocyte % 22.9 % Low 25-47 Monocyte % 4.6 % 1-9 Eosinophil % 1.9 % 0-6 Basophil % 0.6 % 0-2 Nucleated Red Blood Cells % 0 Urine Culture And 06/23/2013 Urine Culture (SEE NOTE) 28 Sensitivities Laboratory test finding 06/23/2013 Lactic Acid 0.6 mmol/L 0.5-2.2 CBC Auto Diff 06/23/2013 White Blood Count 6.8 10^3/uL 4.8-10.8 Red Blood Count 4.10 10^6/uL 4.0-5.4 Hemoglobin 12.7 g/dL 12.0-16.0 Hematocrit 37 % 35-47 Mean Corpuscular Volume 91 fL 80-97 Mean Corpuscular Hemoglobin 31 pg 27-31 Mean Corpuscular HGB Conc 34 g/dL 31-36 Red Cell Distribution Width 13 % 10.5-15 Platelet Count 265 10^3/uL 150-450 Mean Platelet Volume 7 um3 Low 7.4-10.4 Abs Neutrophils 4.3 10^3/uL 1.5-7.7 Abs Lymphocytes 1.9 10^3/uL 1.0-4.8 Abs Monocytes 0.3 10^3/uL 0-0.8 Abs Eosinophils 0.1 10^3/uL 0-0.6 Abs Basophils 0.1 10^3/uL 0-0.2 Abs Nucleated RBC 0.01 10^3/uL Granulocyte % 63.5 % 38-83 Lymphocyte % 28.7 % 25-47 Monocyte % 5.1 % 1-9 Eosinophil % 1.9 % 0-6 Basophil % 0.8 % 0-2 Nucleated Red Blood Cells % 0.1 Comp Metabolic Panel 06/23/2013 Sodium 139 mmol/L 133-145 Potassium 4.5 mmol/L 3.7-5.6 Chloride 109 mmol/L 101-111 Co2 Carbon Dioxide 26 mmol/L 22-32 Anion Gap 4 mmol/L 2-11 Glucose 89 mg/dL 70-100 Blood Urea Nitrogen 6 mg/dL 6-24 Creatinine 0.81 mg/dL 0.51-0.95 BUN/Creatinine Ratio 7.4 Low 8-20 Calcium 8.3 mg/dL Low 8.6-10.3 Total Protein 6.6 g/dL 6.4-8.9 Albumin 3.7 g/dL 3.2-5.2 Globulin 2.9 g/dL 2-4 Albumin/Globulin Ratio 1.3 1-3 Total Bilirubin 0.30 mg/dL 0.2-1.0 Alkaline Phosphatase 118 U/L High 34-104 Alt 37 U/L 7-52 Ast 28 U/L 13-39 Egfr Non- 80.0 >60 Egfr 102.9 >60 29 Urine Microscopic 06/23/2013 Urine WBC 1+ (<10 /hpf) None Seen Urine RBC 1+ (<3 /hpf) None Seen Urine Epithelial Cells 2+ Squamous /hpf None Seen Bacteria Urine 2+ None Seen Laboratory test finding 06/23/2013 Amylase 46 U/L 29-103 Lipase 15 U/L 11.0-82.0 C Reactive Protein 13.25 mg/L High < 5.00 30 Urinalysis 06/23/2013 Urine Color Yellow Urine Appearance Clear Urine Specific [place] 1.012 1.010-1.030 Urine Esterase 1+ Negative Urine Nitrate Negative Negative Urine Urobilinogen Negative E.U./dL Negative Urine Protein Negative mg/dL Negative Urine pH 6.5 5-9 Urine Blood Trace Negative Urine Ketones Negative mg/dL Negative Urine Bilirubin Negative Negative Urine Glucose Negative mg/dL Negative Ua - Micro (Fma) 04/15/2013 Appearance CLOUDY Color YELLOW Glucose NEG Bilirubin NEG Ketones TRACE SP Grav 1.020 Blood MODERATE PH 7.0 Protein NEG Urobil 0.2 Nitrite NEG Leukocytes (Fma/CMC/Centrex) SMALL Hyaline - /Lpf Granular - /Lpf WBC (Fma,Centrex) 9-10 RBC 10-12 Mucus - /Lpf Epith MODERATE /Lpf Bacteria 2+ /Hpf Amorphous - /Lpf Crystals, Fluid (Fma/CMC/CTX) - Z#Comments NOT CLEAN CATCH Laboratory test 04/15/2013 Urine Culture No significant g 31 finding <SEE NOTE> Vaginitis Dna Affirm 04/15/2013 Screen Trichomonas NEGATIVE Vaginalis Dna Screen Gardnerella Vaginalis Dna NEGATIVE Screen Alice Species Dna POSITIVE Laboratory test finding 11/26/2012 Urine Negative Negative 32 Ua - Micro ([facility]) 04/29/2012 Appearance CLEAR Color YELLOW Glucose NEG Bilirubin NEG Ketones NEG SP Grav 1.020 Blood TRACE-INTACT PH 7.0 Protein NEG Urobil 0.2 Nitrite NEG Leukocytes (Fma/CMC/Centrex) NEG Hyaline - /Lpf Granular - /Lpf WBC (a,Centrex) 0-1 RBC 0-2 Mucus - /Lpf Epith MODERATE /Lpf Bacteria TRACE-1+ /Hpf Amorphous - /Lpf Crystals, Fluid (Fma/CMC/CTX) - Z#Comments - Ua - Micro ([facility]) 03/08/2012 Appearance yellow Color clear Glucose neg Bilirubin neg Ketones trace SP Grav >=1.030 Blood small PH 6.0 Protein neg Urobil 0.2 Nitrite neg Leukocytes (Fma/CMC/Centrex) neg Hyaline - /Lpf Granular - /Lpf WBC (a,Centrex) 2-3 RBC 7-10 Mucus - /Lpf Epith few /Lpf Bacteria rare /Hpf Amorphous - /Lpf Crystals, Fluid (Fma/CMC/CTX) - Z#Comments - Ua - Micro (a) 03/01/2012 Appearance CLEAR Color YELLOW Glucose NEG Bilirubin NEG Ketones NEG SP Grav >=1.030 Blood SMALL PH 5.5 Protein SSA:NEG Urobil 0.2 Nitrite NEG Leukocytes (Fma/CMC/Centrex) NEG Hyaline - /Lpf Granular - /Lpf WBC (a,Centrex) 1-3 RBC 0-2 Mucus MODERATE AMOUNT /Lpf Epith MODERATE /Lpf Bacteria TRACE /Hpf Amorphous - /Lpf Crystals, Fluid (Fma/CMC/CTX) - Z#Comments - Laboratory test finding 03/01/2012 Sed Rate (Fma/CMC/Centrex) 27 mm CBC Electronic (a) 03/01/2012 WBC 5.9 3.6-9.6 RBC 4.50 3.90-5.70 Hemoglobin (Fma/CMC/CTX) 13.2 g/dL 12.1 - 17.2 Hematocrit (Fma/CMC/CTX) 41.0 % 36.1 - 50.3 Platelets 290 10^3/ul 150-400 Lymph% 39.0 20.5-51.1 Mixed% 5.0 Neutrophils % 56.0 Mean Corpuscular Vol 91 82.2-97.4 Mean Corpuscular Hemoglobin 29.3 27.6-33.3 Mean Corpuscular Hemo Concen 32.1 32.0-36.0 RDW 11.9 11.6-13.7 Mean Platelet Volume 7.0 6.5-11.0 Ua - Micro (a) 03/19/2011 Appearance CLEAR Color YELLOW Glucose NEG Bilirubin NEG Ketones NEG SP Grav 1.025 Blood SMALL PH 5.5 Protein NEG Urobil 0.2 Nitrite NEG Leukocytes (Fma/CMC/Centrex) NEG Hyaline - /Lpf Granular - /Lpf WBC (Fma,Centrex) 0-1 RBC 3-5 Mucus SMALL AMOUNT /Lpf Epith MANY /Lpf Bacteria TRACE /Hpf Amorphous - /Lpf Crystals, Fluid (Fma/CMC/CTX) - Z#Comments NOT CLEAN CATCH Laboratory test finding 03/19/2011 Thin Prep W/HPV(Lsil/CHINO/Asc) SEE NOTE 33 Ua - Micro (a) 12/25/2010 Appearance clear Color yellow Glucose neg Bilirubin neg Ketones neg SP Grav 1.025 Blood small PH 5.5 Protein neg Urobil 0.2 Nitrite neg Leukocytes (Fma/CMC/Centrex) neg Hyaline - /Lpf Granular - /Lpf WBC (Fma,Centrex) 1-2 RBC 2-3 Mucus - /Lpf Epith few /Lpf Bacteria 1+ /Hpf Amorphous - /Lpf Crystals, Fluid (Fma/CMC/CTX) - Z#Comments - Laboratory test finding 12/25/2010 Urine Culture (a/[facility]) POSITIVE Type And Screen 05/24/2010 Patient Blood Type O POSITIVE 34 Antibody Screen NEGATIVE 34 Specimen Discard Date 06/07/10 34, 35 (HCG) Urine 05/24/2010 Specific [place] 1.015 1.010-1.030 34 Urine NEGATIVE Negative 34, 36 CBC With Electronic Diff 05/24/2010 White Blood Count 6.9 CUMM 4.8-10.8 34 Red Cell Count 4.11 CUMM Low 4.2-5.4 34 Hemoglobin 12.3 g/dL 12.0-16.0 34 Hematocrit 37 % 35-47 34 Mean Corpuscular Volume 91 um3 79-97 34 Mean Corpuscular Hemoglob 30 pg 27-31 34 Mean Corpuscular HGB Cone 33 g/dL 32-36 34 Redcell Distribution WDTH 14 % 10.5-15 34 Platelet Count 276 CUMM 150-450 34 Mean Platelet Volume 7.8 um3 7.4-10.4 34 Gran % 66.5 % 38-83 34 Lymph % 24.3 % Low 25-47 34 Mononuclear % 5.2 % 1-9 34 Eosinophil % 3.2 % 0-6 34 Basophil % 0.8 % 0-2 34 Abs Lymphs 1.7 1.0-4.8 34 Abs Mononuclear 0.4 0-0.8 34 Absolute Neutrophil Count 4.6 1.5-7.7 34 Abs Eosinophils 0.2 0-0.6 34 Abs Basophils 0.1 0-0.2 34 Wet Prep 05/13/2010 Wet Prep SMEAR REVIEWED B 37 <SEE NOTE> GC/Chlamydia Aptima 05/13/2010 Chlamydia Trachomatis N 38 Rna GC (N. Gonorrhoeae) 05/13/2010 GC (N. Gonorrhoeae) N 39 Rna Rna CBC With Electronic 05/13/2010 White Blood Count 6.7 CUMM 4.8-10.8 Diff Red Cell Count 4.15 CUMM Low 4.2-5.4 Hemoglobin 12.6 g/dL 12.0-16.0 Hematocrit 38 % 35-47 Mean Corpuscular Volume 90 um3 79-97 Mean Corpuscular Hemoglob 30 pg 27-31 Mean Corpuscular HGB Cone 34 g/dL 32-36 Redcell Distribution WDTH 14 % 10.5-15 Platelet Count 266 CUMM 150-450 Mean Platelet Volume 7.2 um3 Low 7.4-10.4 Gran % 47.0 % 38-83 Lymph % 43.8 % 25-47 Mononuclear % 5.5 % 1-9 Eosinophil % 3.3 % 0-6 Basophil % 0.4 % 0-2 Abs Lymphs 2.9 1.0-4.8 Abs Mononuclear 0.4 0-0.8 Absolute Neutrophil Count 3.1 1.5-7.7 Abs Eosinophils 0.2 0-0.6 Abs Basophils 0 0-0.2 Laboratory test finding 05/13/2010 (HCG) Serum NEGATIVE Negative 40 Comp Metabolic Panel 05/13/2010 Sodium 135 mmol/L 135-145 Potassium 3.7 mmol/L 3.5-5.0 Chloride 105 mmol/L 101-111 Co2 (Carbon Dioxide) 23.0 mmol/L 22-32 Anion Gap 7.0 mmol/L 2-11 41 Glucose 87 mg/dL 70-100 BUN 11 mg/dL 6-24 Creatinine 0.90 mg/dL 0.50-1.40 One Over Creatinine 1.10 BUN/Creatinine Ratio 12.2 8-20 Calcium 9.1 mg/dL 8.1-9.9 Total Protein 7.3 GM/DL 6.2-8.1 Albumin 3.8 GM/DL 3.6-5.4 Globulin 3.5 GM/DL 2-4 Albumin/Globulin Ratio 1.1 1-3 Bilirubin Total 0.4 mg/dL 0.4-1.5 42 Alkaline Phosphatase 116 U/L High 30-110 Alt (SGPT) 33 U/L 14-54 Ast (Sgot) 41 U/L 12-42 eGFR Non- 76.6 > 60 eGFR 92.7 > 60 43 Urinalysis W/Microscopic 05/13/2010 Ua Color YELLOW Yellow Appearance-Urine CLEAR Clear Specific [place]-Ur 1.011 1.010-1.030 Esterase-Urine 1+ Negative Nitrite NEGATIVE Negative [id number] NEGATIVE Negative Protein-Urine NEGATIVE Negative PH-Urine 6.0 5-9 Blood-Urine 3+ Negative Ketones-Urine NEGATIVE Negative Bilirubin-Ur NEGATIVE Negative Glucose-Urine NEGATIVE Negative WBC-Urine 2-6 0-5 RBC-Urine 0-4 0-2 Epith Cells-Ur MODERATE None Bacteria-Urine 1+ None Ua Comments FEW BUDDING YEAS <SEE NOTE> 44 Urine Culture & 05/13/2010 Urine Culture NF1 45 Sensitivi Sensitivi Wound Culture 03/15/2010 Wound Culture Mixed skin helga 46 <SEE NOTE> .Gram Stain Additional NO EPI, NO WBC, <SEE NOTE> 47 Wound Culture 02/08/2010 Wound Culture Mixed skin helga <SEE NOTE> 48 .Gram Stain Additional NO EPI, NO WBC, <SEE NOTE> 49 Wound Culture 12/25/2009 .Gram Stain Additional NO EPI, NO WBC, <SEE 50 NOTE> Wound Culture Staphylococcus a <SEE NOTE> 51 Laboratory test finding 10/21/2009 Troponin-I (TnI) 0.01 NG/ML 52 TSH 3.32 MIU/ML 0.34-5.60 CBC With Electronic Diff 10/21/2009 White Blood Count 7.5 CUMM 4.8-10.8 Red Cell Count 3.70 CUMM Low 4.2-5.4 Hemoglobin 12.0 g/dL 12.0-16.0 Hematocrit 34 % Low 35-47 Mean Corpuscular Volume 91 um3 79-97 Mean Corpuscular Hemoglob 33 pg High 27-31 Mean Corpuscular HGB Cone 36 g/dL 32-36 Redcell Distribution WDTH 13 % 10.5-15 Platelet Count 231 CUMM 150-450 Mean Platelet Volume 6.7 um3 Low 7.4-10.4 Gran % 70.9 % 38-83 Lymph % 19.7 % Low 25-47 Mononuclear % 5.7 % 1-9 Eosinophil % 2.5 % 0-6 Basophil % 1.2 % 0-2 Abs Lymphs 1.5 1.0-4.8 Abs Mononuclear 0.4 0-0.8 Absolute Neutrophil Count 5.3 1.5-7.7 Abs Eosinophils 0.2 0-0.6 Abs Basophils 0.1 0-0.2 Comp Metabolic Panel 10/21/2009 Sodium 139 mmol/L 135-145 Potassium 4.1 mmol/L 3.5-5.0 Chloride 113 mmol/L High 101-111 Co2 (Carbon Dioxide) 21.0 mmol/L Low 22-32 Anion Gap 5.0 mmol/L 2-11 53 Glucose 95 mg/dL 70-100 54 BUN 11 mg/dL 6-24 Creatinine 0.80 mg/dL 0.50-1.40 One Over Creatinine 1.20 BUN/Creatinine Ratio 13.8 8-20 Calcium 8.6 mg/dL 8.1-9.9 55 Total Protein 7.3 GM/DL 6.2-8.1 Albumin 3.6 GM/DL 3.6-5.4 Globulin 3.7 GM/DL 2-4 Albumin/Globulin Ratio 1.0 1-3 Bilirubin Total 0.5 mg/dL 0.4-1.5 56 Alkaline Phosphatase 113 U/L High 30-110 Alt (SGPT) 26 U/L 14-54 Ast (Sgot) 33 U/L 12-42 eGFR Non- 87.8 > 60 eGFR 106.2 > 60 57 CBC With Electronic Diff Stat 07/18/2009 White Blood Count 6.6 CUMM 4.8- 10.8 Red Cell Count 4.06 CUMM Low 4.2-5.4 Hemoglobin 12.7 g/dL 12.0-16.0 Hematocrit 37 % 35-47 Mean Corpuscular Volume 91 um3 79-97 Mean Corpuscular Hemoglob 31 pg 27-31 Mean Corpuscular HGB Cone 34 g/dL 32-36 Redcell Distribution WDTH 13 % 10.5-15 Platelet Count 239 CUMM 150-450 Mean Platelet Volume 7.0 um3 Low 7.4-10.4 Gran % 51.3 % 38-83 Lymph % 41.1 % 25-47 Mononuclear % 3.9 % 1-9 Eosinophil % 2.9 % 0-6 Basophil % 0.8 % 0-2 Abs Lymphs 2.7 1.0-4.8 Abs Mononuclear 0.3 0-0.8 Absolute Neutrophil Count 3.3 1.5-7.7 Abs Eosinophils 0.2 0-0.6 Abs Basophils 0.1 0-0.2 HCG Qualitative Stat 07/18/2009 Serum Qual HCG NEGATIVE Negative 58 Comp Stat 07/18/2009 Sodium 137 mmol/L 135-145 Potassium 3.8 mmol/L 3.5-5.0 Chloride 106 mmol/L 101-111 Co2 (Carbon Dioxide) 25.0 mmol/L 22-32 Anion Gap 6.0 mmol/L 2-11 59 Glucose 96 mg/dL 70-100 60 BUN 9 mg/dL 6-24 Creatinine 0.90 mg/dL 0.50-1.40 One Over Creatinine 1.10 BUN/Creatinine Ratio 10.0 8-20 Calcium 9.0 mg/dL 8.1-9.9 61 Total Protein 6.6 GM/DL 6.2-8.1 Albumin 3.5 GM/DL Low 3.6-5.4 Globulin 3.1 GM/DL 2-4 Albumin/Globulin Ratio 1.1 1-3 Bilirubin Total 0.4 mg/dL 0.4-1.5 62 Alkaline Phosphatase 96 U/L 30-110 Alt (SGPT) 21 U/L 14-54 Ast (Sgot) 25 U/L 12-42 eGFR Non- 77.1 > 60 eGFR 93.3 > 60 63 Amylase Stat 07/18/2009 Amylase 93 U/L 30-125 Laboratory test finding 07/18/2009 Lipase 29 U/L 22-51 Urinalysis W/Microscopic 07/18/2009 Ua Color YELLOW Yellow Appearance-Urine CLEAR Clear Specific [place]-Ur 1.017 1.010-1.030 Esterase-Urine 1+ Negative Nitrite NEGATIVE Negative Vcfnefpzyfvc-So-JTX NEGATIVE Negative Protein-Urine NEGATIVE Negative PH-Urine 6.5 5-9 Blood-Urine NEGATIVE Negative Ketones-Urine NEGATIVE Negative Bilirubin-Ur NEGATIVE Negative Glucose-Urine NEGATIVE Negative WBC-Urine 0-2 0-5 RBC-Urine NONE SEEN 0-2 Epith Cells-Ur FEW None Bacteria-Urine 1+ None Urine Culture & 07/18/2009 Urine Culture Sensitivi NF1 64 Sensitivi CBC With Electronic Diff 04/16/2009 White Blood Count 6.7 CUMM 4.8-10.8 Stat Red Cell Count 4.59 CUMM 4.2-5.4 Hemoglobin 12.8 g/dL 12.0-16.0 Hematocrit 39 % 35-47 Mean Corpuscular Volume 85 um3 79-97 Mean Corpuscular Hemoglob 28 pg 27-31 Mean Corpuscular HGB Cone 33 g/dL 32-36 Redcell Distribution WDTH 18 % High 10.5-15 Platelet Count 280 CUMM 150-450 Mean Platelet Volume 6.7 um3 Low 7.4-10.4 Gran % 61.4 % 38-83 Lymph % 27.6 % 25-47 Mononuclear % 5.4 % 1-9 Eosinophil % 5.0 % 0-6 Basophil % 0.6 % 0-2 Abs Lymphs 1.8 1.0-4.8 Abs Mononuclear 0.4 0-0.8 Absolute Neutrophil Count 4.1 1.5-7.7 Abs Eosinophils 0.3 0-0.6 Abs Basophils 0 0-0.2 65 Basic Metabolic Panel Stat 04/16/2009 Sodium 137 mmol/L 135-145 Potassium 4.0 mmol/L 3.5-5.0 Chloride 107 mmol/L 101-111 Co2 (Carbon Dioxide) 25.0 mmol/L 22-32 Anion Gap 5.0 mmol/L 2-11 66 Glucose 88 mg/dL 70-100 67 BUN 9 mg/dL 6-24 Creatinine 0.81 mg/dL 0.50-1.40 One Over Creatinine 1.20 BUN/Creatinine Ratio 11.1 8-20 Calcium 8.9 mg/dL 8.1-9.9 68 eGFR Non- 87.1 > 60 eGFR 105.4 > 60 69 Urinalysis W/Microscopic 04/16/2009 Ua Color YELLOW Appearance-Urine CLEAR Specific [place]-Ur 1.018 1.010-1.030 Esterase-Urine 1+ Negative Nitrite NEGATIVE Negative Irhcvraxjyqn-Fy-TFS NEGATIVE Negative Protein-Urine NEGATIVE Negative PH-Urine 6.5 5-9 Blood-Urine NEGATIVE Negative Ketones-Urine NEGATIVE Negative Bilirubin-Ur NEGATIVE Negative Glucose-Urine NEGATIVE Negative WBC-Urine 5-10 0-5 RBC-Urine 0-2 0-2 Mucus Urine MODERATE Epith Cells-Ur MODERATE Bacteria-Urine TRACE Amorphous Sed-U 1+ Urine Culture & 04/16/2009 Urine Culture NF1 70 Sensitivi Sensitivi Surgical Pathology 01/26/2009 Surgical Pathology 71 - <SEE NOTE> HCG () Urine 05/12/2008 Specific [place] 1.019 1.010-1.030 Urine NEGATIVE Negative 72 CBC With Electronic Diff 05/12/2008 White Blood Count 6.9 CUMM 4.8-10.8 Red Cell Count 4.32 CUMM 4.2-5.4 Hemoglobin 11.2 g/dL Low 12.0-16.0 Hematocrit 34 % Low 35-47 Mean Corpuscular Volume 79 um3 79-97 Mean Corpuscular Hemoglob 26 pg Low 27-31 Mean Corpuscular HGB Cone 33 g/dL 32-36 Redcell Distribution WDTH 17 % High 10.5-15 Platelet Count 302 CUMM 150-450 Mean Platelet Volume 7.7 um3 7.4-10.4 Gran % 62.9 % 38-83 Lymph % 30.7 % 25-47 Mononuclear % 4.1 % 1-9 Eosinophil % 2.0 % 0-6 Basophil % 0.3 % 0-2 Abs Lymphs 2.1 1.0-4.8 Abs Mononuclear 0.3 0-0.8 Absolute Neutrophil Count 4.3 1.5-7.7 Abs Eosinophils 0.1 0-0.6 Abs Basophils 0 0-0.2 Wound Culture 02/05/2008 .Gram Stain Additional NO WBC, FEW GRAM <SEE 73 NOTE> Wound Culture Staphylococcus a <SEE NOTE> 74 Wound Culture 02/05/2008 .Gram Stain Additional NO WBC, RARE GRA <SEE 75 NOTE> Wound Culture Staphylococcus a <SEE NOTE> 76 CBC With Electronic Diff Stat 01/05/2008 White Blood Count 7.8 CUMM 4.8- 10.8 Red Cell Count 4.33 CUMM 4.2-5.4 Hemoglobin 11.8 g/dL Low 12.0-16.0 Hematocrit 36 % 35-47 Mean Corpuscular Volume 82 um3 79-97 Mean Corpuscular Hemoglob 27 pg 27-31 Mean Corpuscular HGB Cone 33 g/dL 32-36 Redcell Distribution WDTH 16 % High 10.5-15 Platelet Count 308 CUMM 150-450 Mean Platelet Volume 7.2 um3 Low 7.4-10.4 Gran % 57.6 % 38-83 Lymph % 30.1 % 20-45 Mononuclear % 6.5 % 1-9 Eosinophil % 4.1 % 0-6 Basophil % 1.7 % 0-2 Abs Lymphs 2.3 1.0-4.8 Abs Mononuclear 0.5 0-0.8 Absolute Neutrophil Count 4.6 1.5-7.7 Abs Eosinophils 0.3 0-0.6 Abs Basophils 0.1 0-0.2 Comp Stat 01/05/2008 Sodium 136 mmol/L 135-145 Potassium 4.0 mmol/L 3.5-5.0 Chloride 105 mmol/L 101-111 Co2 (Carbon Dioxide) 25.0 mmol/L 22-32 Anion Gap 6.0 mmol/L 2-11 77 Glucose 105 mg/dL High 70-100 78 BUN 9 mg/dL 6-24 Creatinine 1.0 mg/dL 0.5-1.4 One Over Creatinine 1.00 BUN/Creatinine Ratio 9.0 8-20 Calcium 8.7 mg/dL 8.1-9.9 79 Total Protein 7.7 GM/DL 6.2-8.1 Albumin 3.7 GM/DL 3.6-5.4 Globulin 4.0 GM/DL 2-4 Albumin/Globulin Ratio 0.9 Low 1-3 Bilirubin Total 0.8 mg/dL 0.4-1.5 Alkaline Phosphatase 126 U/L High 30-110 Alt (SGPT) 18 U/L 14-54 Ast (Sgot) 29 U/L 12-42 Urinalysis W/Microscopic Stat 10/25/2007 Ua Color YELLOW Appearance-Urine CLOUDY Specific [place]-Ur 1.022 1.010-1.030 Esterase-Urine TRACE Negative Nitrite NEGATIVE Negative Fskrsryvxask-Yy-KPP NEGATIVE Negative Protein-Urine 2+ Negative PH-Urine 5.0 5-9 Blood-Urine 3+ Negative Ketones-Urine NEGATIVE Negative Bilirubin-Ur NEGATIVE Negative Glucose-Urine NEGATIVE Negative WBC-Urine 5-10 0-5 RBC-Urine TNTC 0-2 Mucus Urine LARGE Epith Cells-Ur FEW Bacteria-Urine RARE Amorphous Sed-U MODERATE CBC With Electronic Diff Stat 10/25/2007 White Blood Count 6.3 CUMM 4.8- 10.8 Red Cell Count 4.25 CUMM 4.2-5.4 Hemoglobin 11.6 g/dL Low 12.0-16.0 Hematocrit 35 % 35-47 Mean Corpuscular Volume 82 um3 79-97 Mean Corpuscular Hemoglob 27 pg 27-31 Mean Corpuscular HGB Cone 33 g/dL 32-36 Redcell Distribution WDTH 16 % High 10.5-15 Platelet Count 311 CUMM 150-450 Mean Platelet Volume 7.5 um3 7.4-10.4 Gran % 71.1 % 38-83 Lymph % 22.4 % 20-45 Mononuclear % 3.6 % 1-9 Eosinophil % 2.7 % 0-6 Basophil % 0.2 % 0-2 Abs Lymphs 1.4 1.0-4.8 Abs Mononuclear 0.2 0-0.8 Absolute Neutrophil Count 4.5 1.5-7.7 Abs Eosinophils 0.2 0-0.6 Abs Basophils 0 0-0.2 Protime Stat 10/25/2007 Protime 12.2 10.9-13.3 Inr 1.02 80 PTT (Aptt) Stat 10/25/2007 PTT (Aptt) 24.6 20.1-28.2 81 HCG Qualitative Stat 10/25/2007 Serum Qual HCG NEGATIVE Negative 82 Basic Metabolic Panel Stat 03/30/2007 One Over Creatinine 1.25 Anion Gap 8.0 mmol/L 2-11 83 BUN 10 mg/dL 6-24 Calcium 9.0 mg/dL 8.7-10.2 Chloride 106 mmol/L 101-111 Co2 (Carbon Dioxide) 23.0 mmol/L 22-32 Glucose 106 mg/dL High 70-105 Potassium 3.7 mmol/L 3.5-5.0 Sodium 137 mmol/L 135-145 BUN/Creatinine Ratio 12.5 8-20 Creatinine 0.8 mg/dL 0.5-1.4 CBC With Electronic Diff Stat 03/30/2007 White Blood Count 8.1 CUMM 4.8- 10.8 Abs Basophils 0 0-0.2 Abs Eosinophils 0.2 0-0.6 Absolute Neutrophil Count 5.8 1.5-7.7 Abs Lymphs 1.8 1.0-4.8 Abs Mononuclear 0.4 0-0.8 Basophil % 0.3 % 0-2 Hematocrit 35 % 35-47 Hemoglobin 11.7 g/dL Low 12.0-16.0 Eosinophil % 2.1 % 0-6 Gran % 71.0 % 38-83 Lymph % 22.1 % 20-45 Mean Corpuscular HGB Cone 34 g/dL 32-36 Mean Corpuscular Hemoglob 29 pg 27-31 Mean Corpuscular Volume 86 um3 79-97 Mean Platelet Volume 7.6 um3 7.4-10.4 Mononuclear % 4.5 % 1-9 Platelet Count 285 CUMM 150-450 Red Cell Count 4.03 CUMM Low 4.2-5.4 Redcell Distribution WDTH 15 % 10.5-15 Erythrocyte Sed Rate 03/30/2007 Erythrocyte Sed Rate 71 MM/HR High 0-15 Stat Laboratory test 11/03/2006 [facility] Labs CBC See Image finding Report Laboratory test 09/09/2006 Troponin-I (TnI) 0.02 NG/ML 0-0.06 84 finding CBC With Electronic 09/09/2006 White Blood Count 7.2 CUMM 4.8-10.8 Diff Abs Basophils 0 0-0.2 Abs Eosinophils 0 0-0.6 Absolute Neutrophil Count 5.5 1.5-7.7 Abs Lymphs 1.4 1.0-4.8 Abs Mononuclear 0.4 0-0.8 Basophil % 0.2 % 0-2 Hematocrit 35 % 35-47 85 Hemoglobin 11.7 g/dL Low 12.0-16.0 Eosinophil % 0 % 0-6 Gran % 75.6 % 38-83 Lymph % 18.7 % Low 20-45 Mean Corpuscular HGB Cone 34 g/dL 32-36 Mean Corpuscular Hemoglob 29 pg 27-31 Mean Corpuscular Volume 85 um3 79-97 Mean Platelet Volume 8.4 um3 7.4-10.4 Mononuclear % 5.5 % 1-9 Platelet Count 252 CUMM 150-450 Red Cell Count 4.05 CUMM Low 4.2-5.4 Redcell Distribution WDTH 16 % High 10.5-15 Comp Metabolic Panel 09/09/2006 One Over Creatinine 1.11 Anion Gap 8.0 mmol/L 2-11 86 Albumin/Globulin Ratio 1.2 1-3 Albumin 3.7 GM/DL 3.6-5.4 Alkaline Phosphatase 134 U/L High 30-110 Alt (SGPT) 28 U/L 14-54 Ast (Sgot) 30 U/L 12-42 BUN 8 mg/dL 6-24 Calcium 9.0 mg/dL 8.7-10.2 Chloride 107 mmol/L 101-111 Co2 (Carbon Dioxide) 23.0 mmol/L 22-32 Globulin 3.2 GM/DL 2-4 Glucose 91 mg/dL 70-105 Potassium 3.9 mmol/L 3.5-5.0 Sodium 138 mmol/L 135-145 Bilirubin Total 0.3 mg/dL Low 0.4-1.5 Total Protein 6.9 GM/DL 6.2-8.1 BUN/Creatinine Ratio 8.9 8-20 Creatinine 0.9 mg/dL 0.5-1.4 Ua - Micro (Fma) 07/31/2006 Appearance CLEAR Color LT YELLOW Glucose NEG Bilirubin NEG Ketones NEG SP Grav 1.015 Blood LARGE LMP 07/30/06 PH 6.0 Protein, Random Urine NEG Urobil 0.2 Nitrite NEG Leukocytes (Fma/CMC/Centrex) TRACE Hyaline - /Lpf Granular - /Lpf WBC (Fma,Centrex) 5-7 RBC, Fluid 1-3 Mucus - /Lpf Epith FEW /Lpf Bacteria RARE /Hpf Amorphous - /Lpf Crystals, Urine (Fma/CMC/CTX) - /Lpf Misc - Laboratory test 08/15/2005 [facility] Labs H&H;URINE See Image finding Report Laboratory test 07/16/2005 [facility] Labs CMP;CBC;QUAL HCG See Image finding Report Laboratory test 07/10/2005 [facility] Labs CMP;CBC;QUAL HCG;UA See Image finding Report Laboratory test 07/05/2005 [facility] Labs CBC;QUAL HCG See Image finding Report Laboratory test 03/05/2005 Pap,TP W/HPV SEE IMAGE finding Ua - Non Micro (a 03/05/2005 Appearance CLEAR 87 New) Color YELLOW 87 Glucose NEG 87 Bilirubin NEG 87 Ketones TRACE 87 SP Grav >=1.030 87 Blood NEG LMP- Spotting 87 PH 6.5 87 Protein SSA TRACE 87 Urobil 0.2 87 Nitrite NEG 87 Leukocytes TRACE 87 Laboratory test 03/05/2005 Urine, NEGATIVE 87 finding (Fma/CMC/CTX) Laboratory test 10/08/2004 [facility] Labs BMP;CBC;ANIS;REJI See Image finding L H Report CBC2 05/06/2002 WBC 5.1 x10*3 4.3 - 10.9 RBC 4.25 x10*6 3.8 - 5.3 Hemoglobin 11.2 g/dL Low 11.8 - 15.8 Hematocrit 34.3 % Low 35.0 - 47.0 MCV 80.6 fl Low 82.0 - 98.0 MCH 26.4 pg Low 27.5 - 33.5 MCHC 32.7 g/dL 32.0 - 36.0 RDW 15.6 % High 11.5 - 14.5 Platelet Count 325 x10*3 130.0 - 400.0 MPV 7.9 fl 6.5 - 10.5 Segmented Neutrophils 53.7 % 44.0 - 74.0 Lymphocytes 37.4 % 15.0 - 45.0 Monocytes 5.3 % 2.0 - 13.0 Eosinophils 3.1 % 0.0 - 6.0 Basophils 0.5 % 0.0 - 2.0 Neutrophil Absolute 2.7 x10*3 1.4 - 7.0 Lymphocytes Absolute 1.9 x10*3 1.0 - 3.4 Monocyte Absolute 0.3 x10*3 0.2 - 1.0 Eosinophil Absolute 0.2 x10*3 0.0 - 0.5 Basophil Absolute 0.0 x10*3 0.0 - 0.2 Anisocytosis 1+ Laboratory test finding 05/06/2002 TSH (Thyrotropin) 2.03 uIU/ml 0.49 - 4.67 1 [facility] Severe Sepsis and Septic Shock Management Bundle Measure requires all lactic acids initially measuring >2.0 mmol/L be repeated. 2 Because ethnic data is not always readily available, this report includes an eGFR for both -Americans and non- Americans. The National Kidney Disease Education Program (NKDEP) does not endorse the use of the MDRD equation for patients that are not between the ages of 18 and 70, are , have extremes of body size, muscle mass, or nutritional status, or are non- or non-. According to the National Kidney Foundation, irrespective of diagnosis, the stage of the disease is based on the level of kidney function: Stage Description GFR(mL/min/1.73 m(2)) 1 Kidney damage with normal or decreased GFR 90 2 Kidney damage with mild decrease in GFR 60-89 3 Moderate decrease in GFR 30-59 4 Severe decrease in GFR 15-29 5 Kidney failure <15 (or dialysis) 3 Acute inflammation: >10.00 4 Because ethnic data is not always readily available, this report includes an eGFR for both -Americans and non- Americans. The National Kidney Disease Education Program (NKDEP) does not endorse the use of the MDRD equation for patients that are not between the ages of 18 and 70, are , have extremes of body size, muscle mass, or nutritional status, or are non- or non-. According to the National Kidney Foundation, irrespective of diagnosis, the stage of the disease is based on the level of kidney function: Stage Description GFR(mL/min/1.73 m(2)) 1 Kidney damage with normal or decreased GFR 90 2 Kidney damage with mild decrease in GFR 60-89 3 Moderate decrease in GFR 30-59 4 Severe decrease in GFR 15-29 5 Kidney failure <15 (or dialysis) 5 Engineering Technical Writer: [id number] NAOMY MONTENEGRO 6 SEE RESULT BELOW Name: MARGARITA ASHBY : [address]: Hiro Rain MD Acct: [id number] Unit: [id number] AGE: 40 Location: ED Re02/13/16 SEX: F Status: REG ER SPEC: [id number] KRYSTYNA: 02/13/16-160 [facility] DR: Brittney JONES REQ: [id number] RECD: 02/13/16 STATUS: SHAISTA BENITEZ DR: Sameer Rain MD _ SOURCE: NASAL SPDESC: ORDERED: Flu A B Request Procedure Result Reported Site Rapid Influenza A B Request Final 02/13/16- 1643 ML Specimen received for Influenza A/B Molecular testing * ML - MAIN LAB ([facility]) . END OF REPORT * ML=Testing performed at Main Lab DEPARTMENT OF PATHOLOGY, [address] [place] [address] Nader Perkins M.D. Director [facility] # [id number] 7 Engineering Technical Writer: [id number] SAVI MCCOY The flame channeler and regulatory agencies both recommend that a throat culture for beta strep be performed if a Rapid Group A Strep assay yields a negative result. Therefore a culture will be automatically performed on all negative samples. 8 SEE RESULT BELOW Name: MARGARITA ASHBY : [address]: Conrado Mckay MD Acct: [id number] Unit: [id number] AGE: 39 Location: ED Re06/04/15 SEX: F Status: DEP ER SPEC: [id number] KRYSTYNA: 02/ [facility] DR: Conrado Mckay MD REQ: [id number] RECD: 06/04/15 STATUS: SHAISTA GRANT DR: Sameer Renteria MD _ SOURCE: THROAT SPDESC: ORDERED: Throat Beta Str Procedure Result Reported Site Throat Beta Strep Culture Final 06/06/15- 807 ML Negative For Group A Beta Streptococcus * ML - MAIN LAB ([facility]) . END OF REPORT * ML=Testing performed at Main Lab DEPARTMENT OF PATHOLOGY, [address] [place] [address] Nader Perkins M.D. Director [facility] # [id number] 9 SEE RESULT BELOW Name: MARGARITA ASHBY : [address]: Conrado Mckay MD Acct: [id number] Unit: [id number] AGE: 39 Location: ED Re06/04/15 SEX: F Status: REG ER SPEC: [id number] KRYSTYNA: 06/04/15-1809 [facility] DR: Michaela JONES REQ: [id number] RECD: 06/04/15 STATUS: COMP JUANITAHR DR: Conrado Renteria MD _ SOURCE: THROAT SPDESC: ORDERED: Strep A Request Procedure Result Reported Site Rapid Strep A Request Final 06/04/15- 1902 ML Specimen received for Rapid Strep A Molecular testing * ML - MAIN LAB ([facility]) . END OF REPORT * ML=Testing performed at Main Lab DEPARTMENT OF PATHOLOGY, [address] [place] [address] Nader Perkins M.D. Director [facility] # [id number] 10 SEE RESULT BELOW Name: MARGARITA ASHBY : [address]: Sunita Landeros MD Acct: [id number] Unit: [id number] AGE: 39 Location: [facility] Re10/19/14 SEX: F Status: DEP ER SPEC: [id number] KRYSTYNA: 10/19/14-1033 [facility] DR: Sunita Landeros MD REQ: [id number] RECD: 10/19/14 STATUS: SHAISTA BENITEZ DR: [facility] Sameer Renteria MD _ SOURCE: URINE SPDESC: ORDERED: Urine Culture Procedure Result Verified Site Urine Culture Final 10/22/14- 817 ML Organism 1 NORMAL HELGA [place] Count >100,000 (Many) CFU/ML * ML - MAIN LAB ([facility]) . END OF REPORT * ML=Testing performed at Main Lab DEPARTMENT OF PATHOLOGY, [address] [place] [address] Nader Perkins M.D. Director [facility] # [id number] 11 Because ethnic data is not always readily available, this report includes an eGFR for both -Americans and non- Americans. The National Kidney Disease Education Program (NKDEP) does not endorse the use of the MDRD equation for patients that are not between the ages of 18 and 70, are , have extremes of body size, muscle mass, or nutritional status, or are non- or non-. According to the National Kidney Foundation, irrespective of diagnosis, the stage of the disease is based on the level of kidney function: Stage Description GFR(mL/min/1.73 m(2)) 1 Kidney damage with normal or decreased GFR 90 2 Kidney damage with mild decrease in GFR 60-89 3 Moderate decrease in GFR 30-59 4 Severe decrease in GFR 15-29 5 Kidney failure <15 (or dialysis) 12 Because ethnic data is not always readily available, this report includes an eGFR for both -Americans and non- Americans. The National Kidney Disease Education Program (NKDEP) does not endorse the use of the MDRD equation for patients that are not between the ages of 18 and 70, are , have extremes of body size, muscle mass, or nutritional status, or are non- or non-. According to the National Kidney Foundation, irrespective of diagnosis, the stage of the disease is based on the level of kidney function: Stage Description GFR(mL/min/1.73 m(2)) 1 Kidney damage with normal or decreased GFR 90 2 Kidney damage with mild decrease in GFR 60-89 3 Moderate decrease in GFR 30-59 4 Severe decrease in GFR 15-29 5 Kidney failure <15 (or dialysis) 13 Specimen hemolyzed. Result may not be valid. 14 Specimen hemolyzed. Result may not be valid. 15 Specimen hemolyzed. Result may not be valid. Acute inflammation: >10.00 In accordance with FDA guideline, CRP is now reported in mg/L, previous reporting was in mg/dL. 16 Unable to report test result due to hemolysis. 17 Specimen hemolyzed. Result may not be valid. 18 Specimen hemolyzed. Result may not be valid. 19 Specimen hemolyzed. Result may not be valid. 20 Specimen hemolyzed. Result may not be valid. 21 Specimen hemolyzed. Result may not be valid. 22 Specimen hemolyzed. Result may not be valid. 23 Specimen hemolyzed. Result may not be valid. 24 Specimen hemolyzed. Result may not be valid. 25 Specimen hemolyzed. Result may not be valid. 26 Unable to report test result due to hemolysis. 27 Because ethnic data is not always readily available, this report includes an eGFR for both -Americans and non- Americans. The National Kidney Disease Education Program (NKDEP) does not endorse the use of the MDRD equation for patients that are not between the ages of 18 and 70, are , have extremes of body size, muscle mass, or nutritional status, or are non- or non-. According to the National Kidney Foundation, irrespective of diagnosis, the stage of the disease is based on the level of kidney function: Stage Description GFR(mL/min/1.73 m(2)) 1 Kidney damage with normal or decreased GFR 90 2 Kidney damage with mild decrease in GFR 60-89 3 Moderate decrease in GFR 30-59 4 Severe decrease in GFR 15-29 5 Kidney failure <15 (or dialysis) 28 RUN DATE: 06/25/13 [facility] LAB LIVE PAGE 1 RUN TIME: [address] [place] [id number] Specimen Inquiry Name: MARGARITA ASHBY : [address]: Elvis Miranda DO Acct: [id number] Unit: [id number] AGE: 37 Location: ED Re06/23/13 SEX: F Status: DEP ER SPEC: [id number] KRYSTYNA: 06/23/13-[address]: Elvis Miranda DO REQ: [id number] RECD: 06/23/13 STATUS: SHAISTA BENITEZ DR: Sameer Renteria MD _ SOURCE: URINE SPDESC: ORDERED: Urine Culture Procedure Result Verified Site Urine Culture Final 06/25/13- 0848 ML Organism 1 NORMAL HELGA [place] Count 75-100,000 (Many) CFU/ML END OF REPORT * ML=Testing performed at Main Lab DEPARTMENT OF PATHOLOGY, [address] [place] [address] Nader Perkins M.D. Director [facility] Permit #[id number] 29 Because ethnic data is not always readily available, this report includes an eGFR for both -Americans and non- Americans. The National Kidney Disease Education Program (NKDEP) does not endorse the use of the MDRD equation for patients that are not between the ages of 18 and 70, are , have extremes of body size, muscle mass, or nutritional status, or are non- or non-. According to the National Kidney Foundation, irrespective of diagnosis, the stage of the disease is based on the level of kidney function: Stage Description GFR(mL/min/1.73 m(2)) 1 Kidney damage with normal or decreased GFR 90 2 Kidney damage with mild decrease in GFR 60-89 3 Moderate decrease in GFR 30-59 4 Severe decrease in GFR 15-29 5 Kidney failure <15 (or dialysis) 30 Acute inflammation: >10.00 In accordance with FDA guideline, CRP is now reported in mg/L, previous reporting was in mg/dL. 31 No significant growth. 32 If is still suspected, please repeat test after 48 to 72 hours. This test detects intact HCG only and is indicated for the early detection of . 33 [employer] DEPARTMENT OF PATHOLOGY or Extension 3300 [facility] CYTOLOGY REPORT PATIENT: MARGARITA ASHBY : 1975 AGE: 35 Y SEX: F ACCT: [id number] PROCEDURE DATE: 03/19/2011 DATE RECEIVED: 03/20/2011 REQUESTING PHYSICIAN: FANNY MOREAU NP LOCATION: [facility] Case No. [id number] PATIENT DATA: [id number] SPECIMEN SUBMITTED: * * (HPVII) THIN PREP W/HPV (LSIL/ASC/CHINO) * * ENDOCERVICAL RELEVANT HISTORY: : 1 Prev.normal: 2009 Para: 1 SPECIMEN ADEQUACY SATISFACTORY FOR EVALUATION, ENDOCERVICAL TRANSFORMATION ZONE COMPONENT PRESENT GENERAL CATEGORIZATION NEGATIVE FOR INTRAEPITHELIAL LESIONS OR MALIGNANCY INTERPRETATION/ RESULT FUNGAL ORGANISMS MORPHOLOGICALLY CONSISTENT WITH ALICE SPECIES. RECOMMENDATIONS Thin Prep Pap tests are examined with an FDA approved location-guidance system. ADDITIONAL COPIES SENT TO: Screened/Rescreened Electronically Signed Sign Out Date/Time: by: by: GOKUL KEARNS, 03/21/2011 12:20 CT(ASCP) The Pap smear is a screening test designed to aid in the detection of premalignant and malignant conditions of the uterine cervix. It is not a diagnostic procedure and should not be used as the sole means of detecting cervical cancer. Both false-positive and false-negative reports do occur. Performed @ [facility] [address] [place] [id number] 34 SDS 05/29/10 35 PREADMISSION TESTING SAMPLES FOR BLOOD BANK WILL BE HELD FOR 14 DAYS FROM THE DATE OF COLLECTION *IF* THE FOLLOWING CRITERIA ARE MET: 1) THE PATIENT HAS *NOT* BEEN IN THE LAST 3 MONTHS. 2) THE PATIENT HAS *NOT* BEEN TRANSFUSED IN THE LAST 3 MONTHS. PREADMISSION TESTING SAMPLES WILL *NOT* BE HELD FOR 14 DAYS FROM PATIENTS WHO IN THE LAST 3 MONTHS: 1) HAVE BEEN 2) HAVE BEEN TRANSFUSED THESE PATIENTS *MUST* BE COLLECTED WITHIN 3 DAYS OF THE SURGERY DATE. 36 If is still suspected, please repeat test after 48 to 72 hours. . 37 SMEAR REVIEWED BY ALEIDA at 0742 on 05/14/10. MODERATE (1 TO 4/HPF) ABSENT NONE SEEN PRESENT 38 NEGATIVE FOR CHLAMYDIA TRACHOMATIS rRNA A negative result does not preclude the presence of a C.trachomatis or N.gonorrhoeae infection because results are dependent on adequate specimen collection, absence of inhibitors, and sufficient rRNA to be detected. Test results may be affected by improper specimen collection, improper specimen storage, technical error, or specimen mixup. 39 NEGATIVE FOR NEISSERIA GONORRHOEAE rRNA A negative result does not preclude the presence of a C.trachomatis or N.gonorrhoeae infection because results are dependent on adequate specimen collection, absence of inhibitors, and sufficient rRNA to be detected. Test results may be affected by improper specimen collection, improper specimen storage, technical error, or specimen mixup. 40 If is still suspected, please repeat test after 48 to 72 hours. . 41 Anion gap measurement may be of limited value in the presence of any alkalosis, especially in a combined acid base disorder. . 42 A metabolite of Naproxen, O-desmethylnaproxen, has been shown to interfere with the Jendrassik-Diann method for measuring total bilirubin. Samples from patients who have taken Naproxen have shown spurious elevation in total bilirubin levels. 43 Because ethnic data is not always readily available, this report includes an eGFR for both -Americans and non- Americans. The National Kidney Disease Education Program (NKDEP) does not endorse the use of the MDRD equation for patients that are not between the ages of 18 and 70, are , have extremes of body size, muscle mass, or nutritional status, or are non- or non-. According to the National Kidney Foundation, irrespective of diagnosis, the stage of the disease is based on the level of kidney function: Stage Description GFR(mL/min/1.73 m(2)) 1 Kidney damage with normal or decreased GFR 90 2 Kidney damage with mild decrease in GFR 60-89 3 Moderate decrease in GFR 30-59 4 Severe decrease in GFR 15-29 5 Kidney failure <15 (or dialysis) 44 FEW BUDDING YEAST 45 SPECIMEN CONTAINS NORMAL URETHRAL OR PERINEAL HELGA AND DOES NOT SUGGEST URINARY TRACT INFECTION 46 Mixed skin helga. 47 NO EPI, NO WBC, NO ORGANISMS SEEN 48 Mixed skin helga. 49 NO EPI, NO WBC, NO ORGANISMS SEEN 50 NO EPI, NO WBC, NO ORGANISMS SEEN 51 Staphylococcus aureus Predominating Please note: MRSA (methicillin resistant Staph. aureus) recovered. . WOUND CULTURE organism 1 Staphylococcus aureus Predominating Linezolid 1 mcg/mL Susceptible Moxifloxacin 1 mcg/mL Susceptible Quinupristin/Dalfopristin <=0.25 mcg/mL Susceptible Clindamycin <=0.25 mcg/mL Susceptible Gentamicin <=0.5 mcg/mL Susceptible Oxacillin >=4 mcg/mL Resistant Penicillin-G >=0.5 mcg/mL Resistant Tetracycline <=1 mcg/mL Susceptible Trimethoprim/Sulfa <=10 mcg/mL Susceptible Vancomycin 1 mcg/mL Susceptible 52 New Reference Range and Interpretation effective 01/14/2002 TnI (ng/ml) INTERPRETATION Less Than 0.06 ng/mL NOT SUPPORTIVE OF DIAGNOSIS OF [place] 0.06 - 0.50 ng/ml INDETERMINATE: SUGGEST SERIAL STUDIES IF CLINICALLY INDICATED. Greater than 0.5 ng/mL CONSISTENT WITH DIAGNOSIS OF [place] . 53 Anion gap measurement may be of limited value in the presence of any alkalosis, especially in a combined acid base disorder. . 54 Note change in reference range as of 12/02/07. The change was based on recommendations from the [place] [employer]. 55 Please note change in reference range effective 07 . 56 A metabolite of Naproxen, O-desmethylnaproxen, has been shown to interfere with the Jendrassik-Mizpah method for measuring total bilirubin. Samples from patients who have taken Naproxen have shown spurious elevation in total bilirubin levels. 57 Because ethnic data is not always readily available, this report includes an eGFR for both -Americans and non- Americans. The National Kidney Disease Education Program (NKDEP) does not endorse the use of the MDRD equation for patients that are not between the ages of 18 and 70, are , have extremes of body size, muscle mass, or nutritional status, or are non- or non-. According to the National Kidney Foundation, irrespective of diagnosis, the stage of the disease is based on the level of kidney function: Stage Description GFR(mL/min/1.73 m(2)) 1 Kidney damage with normal or decreased GFR 90 2 Kidney damage with mild decrease in GFR 60-89 3 Moderate decrease in GFR 30-59 4 Severe decrease in GFR 15-29 5 Kidney failure <15 (or dialysis) 58 If is still suspected, please repeat test after 48 to 72 hours. . 59 Anion gap measurement may be of limited value in the presence of any alkalosis, especially in a combined acid base disorder. . 60 Note change in reference range as of 12/02/07. The change was based on recommendations from the [place] [employer]. 61 Please note change in reference range effective 07 . 62 A metabolite of Naproxen, O-desmethylnaproxen, has been shown to interfere with the Jendrassik-Diann method for measuring total bilirubin. Samples from patients who have taken Naproxen have shown spurious elevation in total bilirubin levels. 63 Because ethnic data is not always readily available, this report includes an eGFR for both -Americans and non- Americans. The National Kidney Disease Education Program (NKDEP) does not endorse the use of the MDRD equation for patients that are not between the ages of 18 and 70, are , have extremes of body size, muscle mass, or nutritional status, or are non- or non-. According to the National Kidney Foundation, irrespective of diagnosis, the stage of the disease is based on the level of kidney function: Stage Description GFR(mL/min/1.73 m(2)) 1 Kidney damage with normal or decreased GFR 90 2 Kidney damage with mild decrease in GFR 60-89 3 Moderate decrease in GFR 30-59 4 Severe decrease in GFR 15-29 5 Kidney failure <15 (or dialysis) 64 SPECIMEN CONTAINS NORMAL URETHRAL OR PERINEAL HELGA AND DOES NOT SUGGEST URINARY TRACT INFECTION 65 1+ Anisocytosis 66 Anion gap measurement may be of limited value in the presence of any alkalosis, especially in a combined acid base disorder. . 67 Note change in reference range as of 12/02/07. The change was based on recommendations from the [place] [employer]. 68 Please note change in reference range effective 07 . 69 Because ethnic data is not always readily available, this report includes an eGFR for both -Americans and non- Americans. The National Kidney Disease Education Program (NKDEP) does not endorse the use of the MDRD equation for patients that are not between the ages of 18 and 70, are , have extremes of body size, muscle mass, or nutritional status, or are non- or non-. According to the National Kidney Foundation, irrespective of diagnosis, the stage of the disease is based on the level of kidney function: Stage Description GFR(mL/min/1.73 m(2)) 1 Kidney damage with normal or decreased GFR 90 2 Kidney damage with mild decrease in GFR 60-89 3 Moderate decrease in GFR 30-59 4 Severe decrease in GFR 15-29 5 Kidney failure <15 (or dialysis) 70 SPECIMEN CONTAINS NORMAL URETHRAL OR PERINEAL HELGA AND DOES NOT SUGGEST URINARY TRACT INFECTION 71 ---- RUN DATE: 01/30/09 [facility] NMI LIVE PAGE 1 RUN TIME: 1508 Specimen Inquiry RUN USER: INTERFACE -- Name: MARGARITA ASHBY Status: REG REF Re01/26/09 Age/Sex: 33/F Unit#: [id number] Location: [facility] : [birth year] -- Specimen: [id number] SOUT Spec Date: 01/26/[address]: Celio bull MD Spec Type: SURGICAL P Received: 01/29/09 Copies to: Sameer Renteria MD CYTOLOGY SPECIMEN 1) CERVICAL POLYP 2) ENDOMETRIAL BIOPSY HISTORY PRE-OP DIAGNOSIS: Menorrhagia GROSS DESCRIPTION 1) Specimen received in formalin labelled Margarita Ashby, Cervical Polyp and consists of a polypoid, carrillo, soft tissue fragment measuring 0.9 x 0.4 x 0.3 cm. Submitted entirely, one cassette. 2) Specimen received in formalin labelled Margarita Ashby, Endometrial Biopsy and consists of multiple, carrillo to brown-red, hemorrhagic, soft tissue fragments measuring 1.7 x 1.5 x 0.6 cm. Submitted entirely, one cassette. DIAGNOSIS 1) Uterus, cervix, biopsy: Benign endocervical polyp. 2) Uterus, endometrium, biopsy: A) Late secretory endometrium. B) No evidence of hyperplasia or neoplasia identified. Signed Electronically by: NADER PERKINS MD 01/30/09 1508 -- -- DEPARTMENT OF PATHOLOGY, [address] [place] [address] [facility] Permit #[id number] Nader Perkins M.D. Director Anne-Marie Brown M.D. [employer] Operator Dir ulysses -- 72 If is still suspected, please repeat test after 48 to 72 hours. . 73 NO WBC, FEW GRAM POS COCCI, 74 Staphylococcus aureus Pure culture Please note: MRSA (methicillin resistant Staph. aureus) recovered. WOUND CULTURE organism 1 Staphylococcus aureus Pure culture Linezolid 2 mcg/mL Susceptible Moxifloxacin 2 mcg/mL Susceptible Quinupristin/Dalfopristin <=0.25 mcg/mL Susceptible Clindamycin <=0.25 mcg/mL Susceptible Gentamicin <=0.5 mcg/mL Susceptible Oxacillin >=4 mcg/mL Resistant Penicillin-G >=0.5 mcg/mL Resistant Tetracycline <=1 mcg/mL Susceptible Trimethoprim/Sulfa <=10 mcg/mL Susceptible Vancomycin <=0.5 mcg/mL Susceptible 75 NO WBC, RARE GRAM POS COCCI, 76 Staphylococcus aureus Pure culture Please note: MRSA (methicillin resistant Staph. aureus) recovered. WOUND CULTURE organism 1 Staphylococcus aureus Pure culture Linezolid 2 mcg/mL Susceptible Moxifloxacin 2 mcg/mL Susceptible Quinupristin/Dalfopristin <=0.25 mcg/mL Susceptible Clindamycin <=0.25 mcg/mL Susceptible Gentamicin <=0.5 mcg/mL Susceptible Oxacillin >=4 mcg/mL Resistant Penicillin-G >=0.5 mcg/mL Resistant Tetracycline <=1 mcg/mL Susceptible Trimethoprim/Sulfa <=10 mcg/mL Susceptible Vancomycin <=0.5 mcg/mL Susceptible 77 Anion gap measurement may be of limited value in the presence of any alkalosis, especially in a combined acid base disorder. . 78 Note change in reference range as of 12/02/07. The change was based on recommendations from the [place] [employer]. 79 Please note change in reference range effective 07 . 80 JUDITH VALUE=2.01 ( OF 03/19/07 Recommended INR for Patients on Oral Anticoagulants Prophylaxis 2.0 - 3.0 Treatment of thrombosis 2.0 - 3.0 Prevention of embolism 2.0 - 3.0 Prevention of embolism from prosthetic heart valves 2.5 - 3.5 81 PLEASE NOTE NEW REFERENCE RANGE EFFECTIVE 07. 82 If is still suspected, please repeat test after 48 to 72 hours. . 83 Anion gap measurement may be of limited value in the presence of any alkalosis, especially in a combined acid base disorder. . 84 New Reference Range and Interpretation effective 01/14/02 TnI (ng/ml) INTERPRETATION <0.06 ng/ml NOT SUPPORTIVE OF DIAGNOSIS OF [place] 0.06 - 0.50 ng/ml INDETERMINATE: SUGGEST SERIAL STUDIES IF CLINICALLY INDICATED. > 0.5 ng/ml CONSISTENT WITH DIAGNOSIS OF [place] . 85 Lymphopenia % 86 Anion gap measurement may be of limited value in the presence of any alkalosis, especially in a combined acid base disorder. . 87 MICRO NOT WANTED BY PROVIDER Procedures Date CPT Code Description Status 06/27/2015 37155 Pure Tone Audiometry Completed 04/16/2015 58544 Nebulizer Treatment Completed 04/09/2015 40603 Nebulizer Treatment Completed 08/18/2011 95608 Pulse Oximetry Completed 04/05/2011 73205 Pulse Oximetry Completed 02/18/2011 75203 Pulse Oximetry Completed 10/15/2004 07893 Pulse Oximetry Completed 07/18/2004 99225 Pulse Oximetry Completed Encounters Type Date Location Provider CPT E/M Dx Office Visit 01/10/2017 9:30a [facility] Sameer Renteria, 82098 Z11.1 Qamar Office Visit 04/08/2016 1:20p Main Office Rios Correia M.D. 40016 J01.00 Office Visit 06/27/2015 1:10p Main Office Sameer Renteria 42045 H65.03 Qamar Office Visit 04/16/2015 2:45p Main Office Amirahcasey DanielAlexis, [facility] 59775 J45.41 J01.00 Office Visit 04/09/2015 2:30p Main Office Amirah Danielzack [facility] 45566 J01.00 J45.41 Office Visit 06/14/2014 9:00a Main Office Sameer Renteria M.D. 08294 401.9 719.47 Office Visit 04/26/2014 9:15a [place] [address] 034.0 466.0 Office Visit 03/15/2014 9:00a Main Office Sameer Renteria M.D. 85089 401.9 Office Visit 03/01/2014 1:00p Main Office Sameer Renteria M.D. 93464 401.9 381.4 Office Visit 02/08/2014 1:10p Main Office Sameer Renteria M.D. 39855 401.9 461.0 Office Visit 01/25/2014 1:10p Main Office aSmeer Renteria M.D. 63098 401.9 Office Visit 01/20/2014 10:15a [place] [address] 796.2 Office Visit 01/13/2014 9:00a [place] [address] 692.9 796.2 Office Visit 11/18/2013 1:40p Main Office Sameer Renteria M.D. 48325 727.43 V72.83 Office Visit 07/18/2013 9:20a Main Office Sameer Renteria M.D. 00287 789.04 V72.83 620.2 Office Visit 04/15/2013 1:30p [place] [address] 789.04 Office Visit 11/22/2012 9:40a Main Office Sameer Renteria M.D. 43152 727.43 V72.83 Office Visit 11/03/2012 3:10p Main Office Sameer Renteria M.D. 34692 727.43 Office Visit 06/15/2012 6:30p Main Office Kaylynn Fox-C 41530 380.22 382.9 Office Visit 04/29/2012 4:00p Main Office Villagranlisset-C 36015 388.70 724.5 Office Visit 03/08/2012 3:00p Main Office Sameer Renteria M.D. 58778 789.04 701.8 599.72 Office Visit 03/01/2012 10:10a Main Office Sameer Renteria M.D. 37844 789.04 Office Visit 01/05/2012 10:45a Main Office Fanny Moreau Baileylisset-C 40048 380.22 Office Visit 12/22/2011 11:00a Main Office Fanny Moreau Baileylisset-C 88197 380.22 Office Visit 10/01/2011 2:15p Main Office Villagranlisset-C 75216 943.00 782.1 Office Visit 09/24/2011 11:40a Main Office Maribell Gallagher M.D. 67271 943.00 Office Visit 09/19/2011 11:00a Main Office Sameer Renteria M.D. 59096 943.00 Office Visit 08/18/2011 6:50p Main Office Maribell Gallagher M.D. 76763 466.0 Office Visit 05/29/2011 2:40p Main Office Maribell Gallagher M.D. 96712 461.0 305.1 Office Visit 04/05/2011 10:00a Main Office LINCOLN Pritchett 69993 461.0 493.90 724.5 Office Visit 03/19/2011 2:30p Main Office Fanny Moreau Baileylisset-C 58019 V72.31 V76.19 V76.2 599.72 Office Visit 03/01/2011 11:00a Main Office LINCOLN Pritchett 75193 380.22 Office Visit 02/18/2011 1:10p Main Office Elijah Jackson M.D. 13044 461.8 380.22 Office Visit 01/24/2011 4:00p Main Office Sameer Renteria M.D. 02552 461.0 Office Visit 12/25/2010 1:45p Main Office Fanny Moreau Baileylisset-C 19579 724.5 789.09 Office Visit 11/14/2010 3:15p Main Office Richelle Murray Baileylisset-C 13624 388.70 381.01 Office Visit 10/23/2010 11:00a Main Office Villagranlisset-C 30422 477.9 493.90 530.81 724.5 Office Visit 09/05/2010 1:30p Main Office Richelle Murray Baileylisset-C 83633 054.79 Office Visit 06/25/2010 12:20p Main Office Rios Correia M.D. 36268 493.90 461.0 719.44 Office Visit 03/15/2010 10:40a Main Office Megha Macedo M.D. 71756 682.9 Office Visit 02/08/2010 11:40a Main Office Megha Macedo M.D. 46455 380.22 Office Visit 12/31/2009 2:10p Main Office Elijah Jackson M.D. 64154 708.0 682.9 Office Visit 12/25/2009 2:20p Main Office Margarita Garcia M.D. 50921 682.9 Office Visit 10/29/2009 11:30a Main Office Fanny EmeryKaylynn aguilar-C 24993 388.70 381.01 465.9 Office Visit 08/15/2009 9:45a Main Office Fannygardenia DelongKaylynn serrato-C 91568 465.9 493.90 Office Visit 05/08/2009 11:10a Main Office Margarita Garcia M.D. 57564 461.0 625.3 Office Visit 04/18/2009 3:00p Main Office Richelle Murray Afnp-C 85935 620.2 Office Visit 11/08/2008 1:15p [facility] 375[facility] 388.71 Office Visit 09/25/2008 7:10p Main Office Prince Beltran M.D. 53692 724.2 Office Visit 08/28/2008 7:15p Main Office Amirah Danielrer, [facility] 57306 461.9 Office Visit 07/10/2008 8:15p Main Office Amirah Danielzack [facility] 58170 625.3 Office Visit 02/05/2008 11:45a Main Office Richelle Murray [facility] 34978 682.5 682.8 Office Visit 01/24/2008 1:20p Main Office Sameer Renteria M.D. 00625 381.10 Office Visit 09/15/2007 12:10p Main Office Sameer Renteria M.D. 69945 706.2 Office Visit 07/24/2007 10:15a Main Office Amirah Espinoza [facility] 24194 461.9 493.90 789.04 Office Visit 06/09/2007 1:20p Main Office Miladis Claros M.D. 18485 373.11 Office Visit 05/01/2007 11:00a Main Office Sameer Renteria M.D. 59295 461.9 787.1 Office Visit 04/14/2007 1:40p Main Office Sameer Renteria M.D. 38884 724.5 493.90 Office Visit 08/19/2006 11:30a [facility] Amirah Espinoza [facility] [facility] [address] 461.9 300.00 Office Visit 07/31/2006 1:00p [facility] Office Miladis Claros 36651 789.04 M.DVinicio Office Visit 07/06/2006 2:40p Main Office Sameer Renteria M.D. 33199 789.04 Office Visit 07/03/2006 3:30p Northeast Office Fanny Moreau [facility] 71434 789.04 V18.7 Office Visit 02/17/2006 4:00p [facility] Office Sameer Renteria M.D. 13840 706.2 Office Visit 07/14/2005 2:00p Main Office Miladis Claros 14452 487.1 M.D. Office Visit 04/15/2005 7:00p Main Office Miladis hien Robin, 18069 789.00 M.D. Office Visit 03/05/2005 3:20p Main Office Sameer Renteria M.D. 36478 787.02 626.4 Office Visit 10/15/2004 1:30p Main Office Amirah Espinoza, [place] 49282 493.90 Office Visit 07/20/2004 11:15a Main Office Kaylynn Fox-C 93811 461.9 Office Visit 07/18/2004 6:00p Main Office Wil Aleman M.D. 07279 460 Office Visit 07/15/2004 7:00p Main Office [place] 38859 493.90 Office Visit 04/24/2004 3:30p Main Office [place] 49655 493.90 Office Visit 06/21/2003 9:20a [facility] Office Danie Gleason M.D. 07401 493.90 486 Office Visit 06/14/2003 7:30p Main Office Kaylynn Burns-C 29241 465.9 490 493.92 Office Visit 03/27/2003 3:30p Main Office [place] 57554 473.9 Office Visit 02/07/2003 7:30p Main Office Kaylynn Fox-C 48235 493.90 Office Visit 10/17/2002 2:45p Main Office [place] 24292 493.90 995.3 311 300.00 Office Visit 08/18/2002 1:00p Main Office [place] 50944 311 Office Visit 06/22/2002 4:15p Main Office Kaylynn Burns-C 23965 461.9 Office Visit 05/06/2002 10:10a Main Office Danie Gleason M.D. 11591 477.9 780.79 Office Visit 12/31/2001 1:15p Main Office [place] [address]52[address] Office Visit 12/21/2001 2:00p Main Office Villagrannp-C 97290 Office Visit 08/23/2001 8:30p Main Office Richelle Murray Luis Miguel [address]39[address] Office Visit 02/25/2001 11:00a Main Office Danie Gleason M.D. 54168 Office Visit 12/25/2000 9:40a Main Office Elijah Jackson M.D. 49012 Office Visit 12/15/2000 12:20p Main Office Danie Gleason M.D. 81630 Office Visit 12/02/2000 9:40a Main Office Danie Gleason M.D. 28693 Plan of Care Future Appointment(s):07/11/2017 9:00 am - Mili Rowe NP at Main [facility]3507/06/2017 - Miladis Marcos, [id number] Pain in left legNew Medication: Prednisone 50 mgHydrocodone-Acetaminophen 5-325 mgM25.562 Pain in left kneeAllComments:~B_~U_Medication Management~b_~u_ Patient Understands medications he 's taking? Yes No Are there Barriers to Adherence? Yes No Has the patient been asked about herbal supplements and therapies, and OTC meds? Yes No ~B_~U_Care Plan~b_~u_1. Patient has been queried aboutpatient's goals/preferences and functional/lifestyle goals at relevant visits. If relevant, describe: eval/treat left knee pain 2. Treatment goals as explained to the patient: above3. Are there barriers to meeting treatment goals? Yes No If Yes, please describe:4. Self- Management goals asdescribed to the patient: Yes No
[2017-08-04 01:08] VITALS: BP 153/101
--- NOTE | 2017-08-04 02:01 | ED ---
Clau Anderson Rebecca, scribed for Cr Batista MD on 08/04/17 at 0054 . Throat Pain/Nasal Congestion - HPI Summary HPI Summary: Pt is a 41 y/o F who presents to ED c/o R ear pain. Sx began 3 days ago and is currently severe, ranked 10/10. Sx aggravated by laying on that side. Denies any drainage and dental pain. Has not been putting anything into the ear and has been taking ibuprofen. Pt has tubes in her ears. No recent injury. No PMHx DM. - History of Current Complaint Chief Complaint: EDEarPain Time Seen by Provider: 08/04/17 00:45 Hx Obtained From: Patient Onset/Duration: Lasting Days - 3 days, Still Present Severity: Severe - 10/10 Associated Signs And Symptoms: Positive: Negative Cough: None - Allergies/Home Medications Allergies/Adverse Reactions: Allergies Allergy/AdvReac Type Severity Reaction Status Date / Time ciprofloxacin [From Cipro] Allergy Hives Verified 07/01/17 11:30 gatifloxacin [From Tequin] Allergy Rash Verified 07/01/17 11:31 Iodine and Iodide Containing Allergy Hives Verified 07/01/17 11:31 Produc latex Allergy Rash Verified 07/01/17 11:32 Penicillins Allergy Hives Verified 07/01/17 11:31 shellfish derived Allergy Anaphylatic Verified 07/01/17 11:32 Shock Sulfa (Sulfonamide Allergy Hives Verified 07/01/17 11:31 Antibiotics) PMH/Surg Hx/FS Hx/Imm Hx Endocrine/Hematology History: Denies: Hx Anticoagulant Therapy, Hx Diabetes, Hx Sickle Cell Disease, Hx Thyroid Disease Cardiovascular History: Reports: Hx Hypertension - ON DAILY MEDS, STATES CONTROLLED Denies: Hx Pacemaker/ICD, Other Cardiovascular Problems/Disorders Respiratory History: Reports: Hx Asthma - CONTROLLED WITH MEDS, USED INHALERS - STATES OK TODAY, Hx Seasonal Allergies - summer Denies: Hx Chronic Obstructive Pulmonary Disease (COPD), Other Respiratory Problems/Disorders GI History: Reports: Hx Gastroesophageal Reflux Disease - ON MED PT.STATES CONTROLLED Denies: Hx Ulcer, Other GI Disorders History: Denies: Hx Renal Disease, Other Problems/Disorders Musculoskeletal History: Denies: Other Musculoskeletal History Sensory History: Denies: Hx Contacts or Glasses, Hx Deafness, Hx Hearing Aid, Hx Hearing Problem Opthamlomology History: Denies: Hx Contacts or Glasses Neurological History: Denies: Hx Dementia, Hx Seizures, Other Neuro Impairments/Disorders Psychiatric History: Reports: Hx Anxiety, Hx Depression Denies: Hx Panic Disorder, Hx Substance Abuse - Surgical History Surgery Procedure, Year, and Place: [place] [facility] [place]. 2006 - Rt W[place]ST [place] [facility] [place]. [place] [facility] [place] - [place] [facility] [place]- [place] [facility] [place] Rt [place] [facility] [place] RT FOOT GANGLION CYST [place] [facility] [place] REMOVAL OF OVARIAN [id number] Hx Anesthesia Reactions: No - Immunization History Date of Tetanus Vaccine: Unknown Infectious Disease History: No Infectious Disease History: Denies: Hx Hepatitis, Hx Human Immunodeficiency Virus (HIV), Traveled Outside the [place] in Last 30 Days - Family History Known Family History: Positive: Hypertension, Diabetes Negative: Blood Disorder - Social History Alcohol Use: Occasionally Alcohol Amount: MAYBE 1 DRINK/MONTH Hx Substance Use: No Substance Use Type: Reports: None Hx Tobacco Use: Yes - not currently smoking Smoking Status (MU): Former Smoker Type: Cigarettes Amount Used/How Often: 1 [id number] 3 YRS Length of Time of Smoking/Using Tobacco: 14 YRS Have You Smoked in the Last Year: Yes Review of Systems Negative: Fever Positive: Ear Ache - Right, Other - NEGATIVE: Ear discharge. Negative: Dental Pain All Other Systems Reviewed And Are Negative: Yes Physical Exam - Summary Physical Exam Summary: Appearance: Well appearing, no pain distress Skin: warm, dry, reflects adequate perfusion Head/face: normal Eyes: EOMI, SUSAN ENT: black/concepcion TM on the left, preauricular tenderness on the right side and some tenderness with manipulation of the pinna, dental extractions and erosion Neck: supple, non-tender Respiratory: CTA, breath sounds present Cardiovascular: RRR, pulses symmetrical Musculoskeletal: normal, strength/ROM intact Neuro: normal, sensory motor intact, A&Ox3 Triage Information Reviewed: Yes Vital Signs On Initial Exam: Initial Vitals Temp Pulse Resp BP Pulse Ox 97.9 F 88 18 161/109 98 08/03/17 23:20 08/03/17 23:20 08/03/17 23:20 08/03/17 23:20 08/03/17 23:20 Vital Signs Reviewed: Yes Diagnostics - Vital Signs Vital Signs Temp Pulse Resp BP Pulse Ox 08/03/17 23:20 97.9 F 88 18 161/109 98 - Laboratory Lab Statement: Any lab studies that have been ordered have been reviewed, and results considered in the medical decision making process. EENT Course/Dx - Course Course Of Treatment: pt with tubes in place. No drainage from middle ear. Some canal ant swelling but canal is widely patent. Tender anteriorly. Rx for cortisporin otic given the PE tube. Tx oral tylenol/ibuprofen. - Differential Diagnoses Differential Diagnoses: Odontogenic Pain, Otitis Externa, Otitis Media - Diagnoses Provider Diagnoses: Otitis externa Discharge - Sign-Out/Discharge Documenting (check all that apply): Discharge/Admit/Transfer - Discharge - Discharge Plan Condition: Stable Disposition: HOME Prescriptions: Neomyc/Polym/HC 1% OTIC SUSP* [Cortisporin Otic Susp 1%*] 4 drop RIGHT EAR QID 7 Days #1 btl Patient Education Materials: Otitis Externa (ED) Referrals: Sameer Renteria MD [Primary Care Provider] - Additional Instructions: Call in the morning for an appt with your doctor. Return with high fever, vomiting, increased pain or other concerns as discussed. - Billing Disposition and Condition Condition: STABLE Disposition: HOME The documentation as recorded by the Clau carrillo Rebecca accurately reflects the service I personally performed and the decisions made by , Cr Batista MD.
== END 2017-08-04 01:08 | disposition home or self-care (01) ==
LOC: ED 23:15
DX: H60.91 Unspecified otitis externa, right ear (principal); I10 Essential (primary) hypertension; J45.909 Unspecified asthma, uncomplicated; K21.9 Gastro-esophageal reflux disease without esophagitis; F41.9 Anxiety disorder, unspecified; F32.9 Major depressive disorder, single episode, unspecified; Z88.2 Allergy status to sulfonamides; Z88.1 Allergy status to other antibiotic agents; Z88.3 Allergy status to other anti-infective agents; Z91.040 Latex allergy status; Z88.0 Allergy status to penicillin; Z91.013 Allergy to seafood; Z87.891 Personal history of nicotine dependence
CPT/HCPCS: 99281

== ENCOUNTER 2018-06-18 08:25 | Emergency (ER) | payer MEDICAID, OTHER ==
--- NOTE | 2018-06-18 08:43 | ED ---
Syncope/Near Syncope - HPI Summary HPI Summary: Patient is a 42-year-old female who presents emergency department for evaluation after near syncopal episode. 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 Patient states she does not syncopized and presents for evaluation. Patient in the ER complains of her whole-body feeling "shaky." She states she did not eat breakfast this morning but she never eats breakfast. Patient denies associated symptoms of chest pain or shortness of breath. She denies any recent illness such as fever, chills, cough, abdominal pain, vomiting, diarrhea or urinary symptoms. Past medical history of asthma and hypertension. Symptoms are moderate in severity. No current modifying factors. - History Of Current Complaint Chief Complaint: EDSyncope Time Seen by Provider: 06/18/18 08:41 Hx Obtained From: Patient - Allergies/Home Medications Allergies/Adverse Reactions: Allergies Allergy/AdvReac Type Severity Reaction Status Date / Time ciprofloxacin [From Cipro] Allergy Hives Verified 06/18/18 08:31 gatifloxacin [From Tequin] Allergy Rash Verified 06/18/18 08:31 Iodine and Iodide Containing Allergy Hives Verified 06/18/18 08:31 Produc latex Allergy Rash Verified 06/18/18 08:31 Penicillins Allergy Hives Verified 06/18/18 08:31 shellfish derived Allergy Anaphylatic Verified 06/18/18 08:31 Shock Sulfa (Sulfonamide Allergy Hives Verified 06/18/18 08:31 Antibiotics) PMH/Surg Hx/FS Hx/Imm Hx Previously Healthy: Yes Endocrine/Hematology History: Denies: Hx Anticoagulant Therapy, Hx Diabetes, Hx Sickle Cell Disease, Hx Thyroid Disease Cardiovascular History: Reports: Hx Hypertension - ON DAILY MEDS, STATES CONTROLLED Denies: Hx Pacemaker/ICD, Other Cardiovascular Problems/Disorders Respiratory History: Reports: Hx Asthma - CONTROLLED WITH MEDS, USED INHALERS - STATES OK TODAY, Hx Seasonal Allergies - summer Denies: Hx Chronic Obstructive Pulmonary Disease (COPD), Other Respiratory Problems/Disorders GI History: Reports: Hx Gastroesophageal Reflux Disease - ON MED PT.STATES CONTROLLED Denies: Hx Ulcer, Other GI Disorders History: Denies: Hx Renal Disease, Other Problems/Disorders Musculoskeletal History: Denies: Other Musculoskeletal History Sensory History: Denies: Hx Contacts or Glasses, Hx Deafness, Hx Hearing Aid, Hx Hearing Problem Opthamlomology History: Denies: Hx Contacts or Glasses Neurological History: Denies: Hx Dementia, Hx Seizures, Other Neuro Impairments/Disorders Psychiatric History: Reports: Hx Anxiety, Hx Depression Denies: Hx Panic Disorder, Hx Substance Abuse - Surgical History Surgery Procedure, Year, and Place: [place] [facility] [place]. 2006 - Rt [place] [facility] [place] [facility] [place] [facility] [place] [facility] [place] [facility] [place] [facility] [place] REMOVAL OF OVARIAN [id number] Hx Anesthesia Reactions: No - Immunization History Date of Tetanus Vaccine: Unknown Infectious Disease History: Yes Infectious Disease History: Denies: Hx Hepatitis, Hx Human Immunodeficiency Virus (HIV), Traveled Outside the in Last 30 Days - Family History Known Family History: Positive: None, Hypertension, Diabetes Negative: Blood Disorder - Social History Occupation: Employed Full-time Lives: With Family Alcohol Use: Occasionally Alcohol Amount: MAYBE 1 DRINK/MONTH Hx Substance Use: No Substance Use Type: Reports: None Hx Tobacco Use: Yes - not currently smoking Smoking Status (MU): Former Smoker Type: Cigarettes Amount Used/How Often: 1 [id number] 3 YRS Length of Time of Smoking/Using Tobacco: 14 YRS Have You Smoked in the Last Year: Yes Review of Systems Constitutional: Negative Negative: Fever, Chills Eyes: Negative ENT: Negative Cardiovascular: Negative Negative: Palpitations, Chest Pain Respiratory: Negative Negative: Shortness Of Breath, Cough Gastrointestinal: Negative Negative: Abdominal Pain, Vomiting, Diarrhea, Nausea Genitourinary: Negative Negative: dysuria Musculoskeletal: Negative Skin: Negative Positive: Syncope. Negative: Headache, Weakness, Paresthesia, Numbness, Slurred Speech Positive: Anxious All Other Systems Reviewed And Are Negative: Yes Physical Exam Triage Information Reviewed: Yes Vital Signs On Initial Exam: Initial Vitals Temp Pulse Resp BP Pulse Ox 98.6 F 106 16 178/116 100 06/18/18 08:27 06/18/18 08:27 06/18/18 08:27 06/18/18 08:27 06/18/18 08:27 Vital Signs Reviewed: Yes Appearance: Positive: Well-Appearing - Pt. sitting up in bed in NAD. Anxious. Family present. Skin: Positive: Warm, Dry Head/Face: Positive: Normal Head/Face Inspection Eyes: Positive: Normal, EOMI Neck: Positive: Supple Respiratory/Lung Sounds: Positive: Clear to Auscultation, Breath Sounds Present Cardiovascular: Positive: Normal, RRR. Negative: Murmur Musculoskeletal: Positive: Normal, Strength/ROM Intact. Negative: Edema Left, Edema Right Neurological: Positive: Normal, Alert, Oriented to Person Place, Time, CN Intact II-III, Normal Gait, Finger to Nose - normal, Facial Symmetry, Speech Normal. Negative: Cerebellar Dysfunction, Disoriented, Facial Droop, Slurred Speech, Dysphagia, Ataxic Gait, Pronator Drift Present Psychiatric: Positive: Affect/Mood Appropriate Diagnostics - Vital Signs Vital Signs Temp Pulse Resp BP Pulse Ox 06/18/18 08:27 98.6 F 106 16 178/116 100 - Laboratory Result Diagrams: 06/18/18 08:53 06/18/18 08:53 Lab Statement: Any lab studies that have been ordered have been reviewed, and results considered in the medical decision making process. Course/Dx Course Of Treatment: Pt. presenting after a near syncopal episode. Afebrile BP elevated at 178/116. Cardiac workup ordered. ECG done at 0856 shows a sinus tachycardia of 100bpm, normal axis, appropriate intervals, no ST elevation or depression. 1016: Bloodwork is unremarkable. CXR negative for acute findings. Pt. noting she feels very anxious and feels her whole body is shaking. Will give a dose of ativan. 1133: Pt. ambulated in hallway. She now states she feels room is spinning. She had no ataxia. Will obtain brain CT. Neuro exam is normal. Meclizine ordered. CT brain per radiology: IMPRESSION: #. RIGHT mastoid effusions which may relate to the patient's clinical presentation. Correlate for mastoiditis. #. 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 Nonemergent follow-up pre and postcontrast MRI suggested for further assessment. Pt. notes hx of OM but currently denies any recent ear pain or fever. She has no mastoid tenderness. Pt. BP continues to be elevated at 165/109. Case discussed with Dr. Ureña. He suspects sxs may be secondary to blood pressure and recommends lower pressure. Pt. given 0.1mg PO clonidine and pressure improved to 148/92. Pt. re-evaluated and states she is feeling better. Plan to dc home. Advised to schedule a f.u apt. with PCP for Thursday for re-evaluation. To continue home meds. To return to ER if sxs change or worsen. Pt. understands and agrees with plan. DC home stable with family. - Diagnoses Differential Diagnosis/HQI/PQRI: Positive: Cerebral Vascular Accident, Coronary Artery Disease, Hypoglycemia, Hypovolemia, Metabolic Reaction, Myocardial Infarction, Medication Reaction, Vasovagal Episode Provider Diagnoses: Hypertension, Near syncope Discharge - Sign-Out/Discharge Documenting (check all that apply): Patient Departure Patient Received Moderate/Deep Sedation with Procedure: No - Discharge Plan Condition: Improved Disposition: HOME Patient Education Materials: Vertigo (ED), Hypertension (ED) Forms: *Work Release Referrals: Sameer Renteria MD [Primary Care Provider] - Additional Instructions: Call your PCP today to schedule an appointment for Thursday Continue home medications as directed Return to ER if symptoms change or worsen - Billing Disposition and Condition Condition: IMPROVED Disposition: Home
[2018-06-18 09:01] LABS: ABS Basophils 0 10^3/ul (0-0.2); ABS Eosinophils 0.1 10^3/ul (0-0.6); ABS Lymphocytes 2.1 10^3/ul (1.0-4.8); ABS Monocytes 0.4 10^3/ul (0-0.8); ABS Neutrophils 3.5 10^3/ul (1.5-7.7); ABS Nucleated RBC 0 10^3/ul; Hematocrit 41 % (35-47); Hemoglobin 13.5 g/dl (12.0-16.0); Lymphocyte % 33.6 %; Mean Corpuscular HGB Conc 33 g/dl (31-36); Mean Corpuscular Hemoglobin 30 pg (27-31); Mean Corpuscular Volume 89 fL (80-97); Mean Platelet Volume 6.9 fL (7.4-10.4); Nucleated Red Blood Cells % 0.1; Platelet Count 313 10^3/ul (150-450); Red Blood Count 4.59 10^6/ul (4.00-5.40); Red Cell Distribution Width 14 % (10.5-15); White Blood Count 6.2 10^3/ul (3.5-10.8)
[2018-06-18 09:31] LABS: Urine Appearance Cloudy; Urine Bacteria 2+ (Absent); Urine Bilirubin Negative (Negative); Urine Blood 1+ (Negative); Urine Color Yellow; Urine Glucose Negative (Negative); Urine Ketones Negative (Negative); Urine Nitrite Negative (Negative); Urine Protein Negative (Negative); Urine Red Blood Cell Trace(0-2/hpf) (Absent); Urine Specific Gravity 1.006 (1.010-1.030); Urine Squamous Epithelial Cell Present (Absent); Urine Urobilinogen Negative (Negative); Urine White Blood Cell Absent (Absent)
[2018-06-18 09:32] LABS: Albumin 4.3 g/dL (3.2-5.2); Albumin/Globulin Ratio 1.2 (1-3); BUN/Creatinine Ratio 11.8 (8-20); Calcium 9.3 mg/dL (8.6-10.3); EGFR African American 80.4 (>60); EGFR Non-African American 66.4 (>60); Globulin 3.6 g/dL (2-4); Potassium 3.7 mmol/L (3.5-5.0); Total Bilirubin 0.3 mg/dL (0.2-1.0); Total Protein 7.9 g/dL (6.4-8.9)
[2018-06-18 09:58] LABS: TSH (Thyroid Stimulating Horm) 4.32 mcIU/mL (0.34-5.60)
[2018-06-18] MEDS ORDERED: LORazepam TAB(*) 1 MG PO ONE (10:15)
[2018-06-18] MEDS ORDERED: Meclizine TAB* 12.5 MG PO ONE (11:32)
[2018-06-18] MEDS ORDERED: cloNIDine TAB* 0.1 MG PO ONE (13:03)
[2018-06-18 14:27] VITALS: BP 158/06
== END 2018-06-18 14:26 | disposition home or self-care (01) ==
LOC: ED 08:25
DX: I10 Essential (primary) hypertension (principal); R55 Syncope and collapse; Z87.891 Personal history of nicotine dependence; J45.909 Unspecified asthma, uncomplicated; Z88.0 Allergy status to penicillin; Z88.2 Allergy status to sulfonamides
CPT/HCPCS: 36415; 70450; 71045; 80053; 81003; 81015; 83605; 83735; 84443; 84484; 85025; 87086; 93005; 99284; A9270-GY

== ENCOUNTER 2018-07-18 17:26 | Emergency (ER) | payer OTHER ==
[2018-07-18] MEDS ORDERED: predniSONE TAB* 20 MG PO ONE (17:46)
[2018-07-18] MEDS ORDERED: Albuterol/Ipratropium NEB.SOL* Albuterol 2.5 MG/Ipratropium 0.5 MG 3 ML INH ONE ×2 (17:46→19:20)
[2018-07-18] MEDS ORDERED: NS 0.9% 1000 ML** 1,000 ML IV ONE (17:52)
[2018-07-18] MEDS ORDERED: Ondansetron INJ* 2 MG/ML VIAL IV ONE (17:52)
[2018-07-18 17:55] LABS: Influenza A Molecular NEGATIVE (Negative); Influenza B Molecular NEGATIVE (Negative)
[2018-07-18 18:36] LABS: ABS Basophils 0 10^3/ul (0-0.2); ABS Eosinophils 0 10^3/ul (0-0.6); ABS Lymphocytes 1.3 10^3/ul (1.0-4.8); ABS Monocytes 0.5 10^3/ul (0-0.8); ABS Neutrophils 5.6 10^3/ul (1.5-7.7); ABS Nucleated RBC 0 10^3/ul; Eosinophil % 0.5 %; Hematocrit 40 % (33-41); Hemoglobin 13.6 g/dL (12.0-16.0); Mean Corpuscular HGB Conc 34 g/dL (31-36); Mean Corpuscular Hemoglobin 30 pg (27-31); Mean Corpuscular Volume 88 fL (80-97); Mean Platelet Volume 7.3 fL (7.4-10.4); Nucleated Red Blood Cells % 0; Platelet Count 308 10^3/uL (150-450); Red Blood Count 4.53 10^6 /uL (3.70-4.87); Red Cell Distribution Width 14 % (10.5-15); White Blood Count 7.4 10^3/uL (3.5-10.8)
[2018-07-18 18:52] LABS: Albumin 4.2 g/dL (3.2-5.2); Albumin/Globulin Ratio 1.2 (1-3); BUN/Creatinine Ratio 8.9 (8-20); C Reactive Protein 10.23 mg/L (<8.01); Calcium 9.2 mg/dL (8.6-10.3); EGFR African American 83.5 (>60); Globulin 3.5 g/dL (2-4); Potassium 3.6 mmol/L (3.5-5.0); Total Bilirubin 0.4 mg/dL (0.2-1.0); Total Protein 7.7 g/dL (6.4-8.9)
[2018-07-18 18:59] LABS: HCG Pregnancy 1.81 mIU/mL
[2018-07-18] MEDS ORDERED: Benzonatate CAP* 100 MG PO ONE (19:21)
--- NOTE | 2018-07-18 20:07 | ED ---
Influenza-Like Illness - HPI Summary HPI Summary: Patient complains of cough, chest pain is sore throat subsequent to cough, SOB, body aches, CHIU, fever up to 101, nausea or vomiting 3 days. Denies neck stiffness, diarrhea, abdominal pain, change in urine, change in BM. Medical history is asthma, HTN. - History of Current Complaint Chief Complaint: EDShortnessOfBreath Time Seen by Provider: 07/18/18 17:40 Hx Obtained From: Patient Onset/Duration: Gradual Onset, Lasting Days Severity: Moderate Associated Signs & Symptoms: Fever, Myalgia, Cough, Headache, Vomiting - Allergy/Home Medications Allergies/Adverse Reactions: Allergies Allergy/AdvReac Type Severity Reaction Status Date / Time ciprofloxacin [From Cipro] Allergy Hives Verified 07/18/18 17:31 gatifloxacin [From Tequin] Allergy Rash Verified 07/18/18 17:31 Iodine and Iodide Containing Allergy Hives Verified 07/18/18 17:31 Produc latex Allergy Rash Verified 07/18/18 17:31 Penicillins Allergy Hives Verified 07/18/18 17:31 shellfish derived Allergy Anaphylatic Verified 07/18/18 17:31 Shock Sulfa (Sulfonamide Allergy Hives Verified 07/18/18 17:31 Antibiotics) PMH/Surg Hx/FS Hx/Imm Hx Endocrine/Hematology History: Denies: Hx Anticoagulant Therapy, Hx Diabetes, Hx Sickle Cell Disease, Hx Thyroid Disease Cardiovascular History: Reports: Hx Hypertension - ON DAILY MEDS, STATES CONTROLLED Denies: Hx Pacemaker/ICD, Other Cardiovascular Problems/Disorders Respiratory History: Reports: Hx Asthma - CONTROLLED WITH MEDS, USED INHALERS - STATES OK TODAY, Hx Seasonal Allergies - summer Denies: Hx Chronic Obstructive Pulmonary Disease (COPD), Other Respiratory Problems/Disorders GI History: Reports: Hx Gastroesophageal Reflux Disease - ON MED PT.STATES CONTROLLED Denies: Hx Ulcer, Other GI Disorders History: Denies: Hx Renal Disease, Other Problems/Disorders Musculoskeletal History: Denies: Other Musculoskeletal History Sensory History: Denies: Hx Contacts or Glasses, Hx Deafness, Hx Hearing Aid, Hx Hearing Problem Opthamlomology History: Denies: Hx Contacts or Glasses Neurological History: Denies: Hx Dementia, Hx Seizures, Other Neuro Impairments/Disorders Psychiatric History: Reports: Hx Anxiety, Hx Depression Denies: Hx Panic Disorder, Hx Substance Abuse - Surgical History Surgery Procedure, Year, and Place: 2005- AL LIGATION [facility] [place]. 09/2014 total hysterectomy [place]. 2006 - Rt WRIST GANGLION CYST REMOVED [facility] [place] 05/22 Rt EAR LESION REMOVED [facility] [place]. D&C - 2008 [facility] [place] 2010- UTERINE ABLATION [facility] [place]. 2012 Rt FOOT - GANGLION CYST REMOVED- [facility] [place]. 2013 RT FOOT GANGLION CYST REMOVED [facility] [place]. REMOVAL OF OVARIAN [id number] Hx Anesthesia Reactions: No - Immunization History Date of Tetanus Vaccine: Unknown Infectious Disease History: No Infectious Disease History: Denies: Hx Hepatitis, Hx Human Immunodeficiency Virus (HIV), Traveled Outside the [place] in Last 30 Days - Family History Known Family History: Positive: None, Hypertension, Diabetes Negative: Blood Disorder - Social History Alcohol Use: Occasionally Alcohol Amount: MAYBE 1 DRINK/MONTH Hx Substance Use: No Substance Use Type: Reports: None Hx Tobacco Use: Yes - not currently smoking Smoking Status (MU): Former Smoker Type: Cigarettes Amount Used/How Often: 1 [id number] 3 YRS Length of Time of Smoking/Using Tobacco: 14 YRS Have You Smoked in the Last Year: Yes Review of Systems Positive: Fever Eyes: Negative Positive: Sore Throat Positive: Chest Pain Positive: Shortness Of Breath, Cough Positive: Vomiting, Nausea Genitourinary: Negative Positive: Myalgia Skin: Negative Positive: Headache Psychological: Normal All Other Systems Reviewed And Are Negative: Yes Physical Exam - Summary Physical Exam Summary: Bilateral wheezing. Tachycardic. ENT exam unremarkable. Abdomen soft nontender. No peripheral edema. Triage Information Reviewed: Yes Vital Signs On Initial Exam: Initial Vitals Temp Pulse Resp BP Pulse Ox 99.6 F 114 22 183/97 97 07/18/18 17:28 07/18/18 17:28 07/18/18 17:28 07/18/18 17:28 07/18/18 17:28 Vital Signs Reviewed: Yes Appearance: Positive: Well-Appearing Skin: Positive: Warm Head/Face: Positive: Normal Head/Face Inspection Eyes: Positive: Normal ENT: Positive: Normal ENT inspection Neck: Positive: Supple Respiratory/Lung Sounds: Positive: Wheezes Cardiovascular: Positive: Tachycardia Abdomen Description: Positive: Nontender Musculoskeletal: Positive: Normal Neurological: Positive: Normal Psychiatric: Positive: Normal AVPU Assessment: Alert - [place] Coma Scale Best Eye Response: 4 - Spontaneous Best Motor Response: 6 - Obeys Commands Best Verbal Response: 5 - Oriented Coma Scale Total: 15 Diagnostics - Vital Signs Vital Signs Temp Pulse Resp BP Pulse Ox 07/18/18 19:31 107 21 100 07/18/18 18:00 104 22 100 07/18/18 17:58 101 18 99 07/18/18 17:47 103 21 99 07/18/18 17:28 99.6 F 114 22 183/97 97 - Laboratory Lab Results: Lab Results 07/18/18 07/18/18 07/18/18 Range/Units 17:30 18:01 18:01 WBC 7.4 (3.5-10.8) 10^3/uL RBC 4.53 (3.70-4.87) 10^6 /uL Hgb 13.6 (12.0-16.0) g/dL Hct 40 (33-41) % MCV 88 (80-97) fL MCH 30 (27-31) pg MCHC 34 (31-36) g/dL RDW 14 (10.5-15) % Plt Count 308 (150-450) 10^3/uL MPV 7.3 L (7.4-10.4) fL Neut % (Auto) 74.7 % Lymph % (Auto) 18.0 % [place] % (Auto) 6.3 % Eos % (Auto) 0.5 % Baso % (Auto) 0.5 % Absolute Neuts (auto) 5.6 (1.5-7.7) 10^3/ul Absolute Lymphs (auto) 1.3 (1.0-4.8) 10^3/ul Absolute Monos (auto) 0.5 (0-0.8) 10^3/ul Absolute Eos (auto) 0 (0-0.6) 10^3/ul Absolute Basos (auto) 0 (0-0.2) 10^3/ul Absolute Nucleated RBC 0 10^3/ul Nucleated RBC % 0 Sodium 140 (135-145) mmol/L Potassium 3.6 (3.5-5.0) mmol/L Chloride 107 (101-111) mmol/L Carbon Dioxide 26 (22-32) mmol/L Anion Gap 7 (2-11) mmol/L BUN 8 (6-24) mg/dL Creatinine 0.90 (0.51-0.95) mg/dL Est GFR ( Amer) 83.5 (>60) Est GFR (Non-Af Amer) 69.0 (>60) BUN/Creatinine Ratio 8.9 (8-20) Glucose 108 H (70-100) mg/dL Calcium 9.2 (8.6-10.3) mg/dL Total Bilirubin 0.40 (0.2-1.0) mg/dL AST 28 (13-39) U/L ALT 31 (7-52) U/L Alkaline Phosphatase 177 H (34-104) U/L Troponin I 0.00 (<0.04) ng/mL C-Reactive Protein 10.23 H (<8.01) mg/L Total Protein 7.7 (6.4-8.9) g/dL Albumin 4.2 (3.2-5.2) g/dL Globulin 3.5 (2-4) g/dL Albumin/Globulin Ratio 1.2 (1-3) Beta HCG, Quant 1.81 mIU/mL Influenza A (Rapid) Negative (Negative) Influenza B (Rapid) Negative (Negative) Result Diagrams: 07/18/18 18:01 07/18/18 18:01 Lab Statement: Any lab studies that have been ordered have been reviewed, and results considered in the medical decision making process. Flu Symptom Course/Dx - Course Course Of Treatment: Patient complains of cough, chest pain is sore throat subsequent to cough, SOB, body aches, CHIU, fever up to 101, nausea or vomiting 3 days. Denies neck stiffness, diarrhea, abdominal pain, change in urine, change in BM. Medical history is asthma, HTN. Physical exam:Bilateral wheezing. Tachycardic. ENT exam unremarkable. Abdomen soft nontender. No peripheral edema. Patient mildly tachycardic, tachypneic. Labs unremarkable. Flu negative. Chest x-ray negative. Patient states significant improvement after the nebs 2. Lung sounds much better after DuoNeb 2. Patient remained tachycardic, likely secondary to albuterol.. Tachypnea resolved. Patient started on prednisone here in the ED. Rx for same. Patient has nebulizer and inhaler treatments at home. - Diagnoses Provider Diagnoses: Viral syndrome, Asthma attack Discharge - Sign-Out/Discharge Documenting (check all that apply): Patient Departure Patient Received Moderate/Deep Sedation with Procedure: No - Discharge Plan Condition: Stable Disposition: HOME Prescriptions: Ondansetron ODT TAB* [Zofran 4 MG Odt TAB*] 4 mg PO Q8H PRN 4 Days #14 tab.odt PRN Reason: Nausea predniSONE TAB* [Deltasone 20 MG TAB*] 40 mg PO DAILY 5 Days #10 tab Patient Education Materials: Viral Syndrome (ED), Bronchospasm (ED) Forms: *Work Release Referrals: Sameer Renteria MD [Primary Care Provider] - Additional Instructions: Take prednisone as directed. Use nausea for her nausea as directed. Take Tylenol or ibuprofen for body aches. Use your inhaler and nebulizer as directed for asthma. Follow-up with primary care. Return to the ED for any new or worsening symptoms. - Billing Disposition and Condition Condition: STABLE Disposition: Home
[2018-07-18] MEDS ORDERED: Ibuprofen TAB* 400 MG PO ONE (20:13)
[2018-07-18 21:07] VITALS: BP 152/92
--- NOTE | 2018-07-19 07:31 | PN ---
Progress Note - Progress Note Date of Service: 07/18/18 Note: Final chest xray read per radiology shows a small right middle lobe infiltrate per radiology. I called and spoke with pt. today at 1030. Rx for zithromax sent to pharmacy. Pt. states she has a f.u apt. with PCP tomorrow.
== END 2018-07-18 21:05 | disposition home or self-care (01) ==
LOC: ED 17:26
DX: J45.901 Unspecified asthma with (acute) exacerbation (principal); B34.9 Viral infection, unspecified; I10 Essential (primary) hypertension; Z88.2 Allergy status to sulfonamides; Z91.040 Latex allergy status; Z87.891 Personal history of nicotine dependence
CPT/HCPCS: 36415; 71046; 80053; 84484; 84702; 85025; 86140; 96361; 96374; 99285; A9270-GY; J2405; J7512

== ENCOUNTER 2018-12-31 11:57 | Emergency (ER) | payer OTHER ==
[2018-12-31] MEDS ORDERED: Naproxen TAB* 250 MG PO ONE (13:01)
--- NOTE | 2018-12-31 15:03 | ED ---
Lower Extremity - HPI Summary HPI Summary: He shouldn't is a 43-year-old female who presents emergency department for increased right knee pain times several days. Patient states she is a history of arthritis. Patient denies any falls or recent injuries. Patient states pain was too intense to work today and presents to the ER. Patient also notes right calf pain. Denies significant past medical history. No history of DVT, chest pain or shortness of breath, or fever. Movement makes symptoms worse. Rest makes symptoms better. - History of Current Complaint Chief Complaint: EDExtremityLower Stated Complaint: RIGHT LEG PAIN PER PT Time Seen by Provider: 12/31/18 12:09 Hx Obtained From: Patient Pain Intensity: 10 - Allergies/Home Medications Allergies/Adverse Reactions: Allergies Allergy/AdvReac Type Severity Reaction Status Date / Time ciprofloxacin [From Cipro] Allergy Hives Verified 12/31/18 11:59 gatifloxacin [From Tequin] Allergy Rash Verified 12/31/18 11:59 Iodine and Iodide Containing Allergy Hives Verified 12/31/18 11:59 Produc latex Allergy Rash Verified 12/31/18 11:59 Penicillins Allergy Hives Verified 12/31/18 11:59 shellfish derived Allergy Anaphylatic Verified 12/31/18 11:59 Shock Sulfa (Sulfonamide Allergy Hives Verified 12/31/18 11:59 Antibiotics) PMH/Surg Hx/FS Hx/Imm Hx Previously Healthy: Yes Endocrine/Hematology History: Denies: Hx Anticoagulant Therapy, Hx Diabetes, Hx Sickle Cell Disease, Hx Thyroid Disease Cardiovascular History: Reports: Hx Hypertension - ON DAILY MEDS, STATES CONTROLLED Denies: Hx Pacemaker/ICD, Other Cardiovascular Problems/Disorders Respiratory History: Reports: Hx Asthma - CONTROLLED WITH MEDS, USED INHALERS - STATES OK TODAY, Hx Seasonal Allergies - summer Denies: Hx Chronic Obstructive Pulmonary Disease (COPD), Other Respiratory Problems/Disorders GI History: Reports: Hx Gastroesophageal Reflux Disease - ON MED PT.STATES CONTROLLED Denies: Hx Ulcer, Other GI Disorders History: Denies: Hx Renal Disease, Other Problems/Disorders Musculoskeletal History: Denies: Other Musculoskeletal History Sensory History: Denies: Hx Contacts or Glasses, Hx Deafness, Hx Hearing Aid, Hx Hearing Problem Opthamlomology History: Denies: Hx Contacts or Glasses Neurological History: Denies: Hx Dementia, Hx Seizures, Other Neuro Impairments/Disorders Psychiatric History: Reports: Hx Anxiety, Hx Depression Denies: Hx Panic Disorder, Hx Substance Abuse - Surgical History Surgery Procedure, Year, and Place: 2006- TUB[place]IG[place] [facility] [place] total [place]. 2006 - Rt WRIST GANGLION CYST REMOVED [facility] [place]. 05/22 Rt EAR LESION REMOVED [facility] [place]. D&C - 2008 [facility] [place] 2010- UTERINE ABLATION [facility] [place]. 2012 Rt FOOT - GANGLION CYST REMOVED- [facility] [place]. 2013 RT FOOT GANGLION CYST REMOVED [facility] [place] REMOVAL OF OVARIAN [id number] Hx Anesthesia Reactions: No - Immunization History Date of Tetanus Vaccine: Unknown Infectious Disease History: No Infectious Disease History: Denies: Hx Hepatitis, Hx Human Immunodeficiency Virus (HIV), Traveled Outside the [place] in Last 30 Days - Family History Known Family History: Positive: None, Hypertension, Diabetes, Non-Contributory Negative: Blood Disorder - Social History Occupation: Employed Full-time Lives: With Family Alcohol Use: Rare Alcohol Amount: MAYBE 1 DRINK/MONTH Hx Substance Use: No Substance Use Type: Reports: None Hx Tobacco Use: Yes - not currently smoking Smoking Status (MU): Light Every Day Tobacco Smoker Type: Cigarettes Amount Used/How Often: 1 [id number] 3 YRS Length of Time of Smoking/Using Tobacco: 14 YRS Have You Smoked in the Last Year: Yes Review of Systems Constitutional: Negative Negative: Fever Positive: Other - right knee and calf pain Skin: Negative Negative: Rash Neurological: Negative Negative: Weakness, Paresthesia, Numbness All Other Systems Reviewed And Are Negative: Yes Physical Exam Triage Information Reviewed: Yes Vital Signs On Initial Exam: Initial Vitals Temp Pulse Resp BP Pulse Ox 98.3 F 88 20 174/122 100 12/31/18 11:58 12/31/18 11:58 12/31/18 11:58 12/31/18 11:58 12/31/18 11:58 Vital Signs Reviewed: Yes Appearance: Positive: Well-Appearing - Pt. lying in bed in NAD. Appears in pain with movement. Skin: Positive: Warm, Dry Head/Face: Positive: Normal Head/Face Inspection Eyes: Positive: Normal, EOMI Neck: Positive: Supple Musculoskeletal: Positive: Other - Good palpable pedal pulse on right leg. Diffuse tenderness to right knee with palpation and movement. Able to flex and extend with pain. NO increased warmth or erytema. Diffuse calf pain notes as well. No leg edema. Neurological: Positive: Normal Psychiatric: Positive: Affect/Mood Appropriate Diagnostics - Vital Signs Vital Signs Temp Pulse Resp BP Pulse Ox 12/31/18 11:58 98.3 F 88 20 174/122 100 - Laboratory Lab Statement: Any lab studies that have been ordered have been reviewed, and results considered in the medical decision making process. Lower Extremity Course/Dx - Course Course Of Treatment: Patient with right knee pain and calf pain. Ultrasound and x-ray obtained. Ultrasound negative for acute findings, reading per radiology. Knee x-ray shows arthritic changes without acute findings, reading per radiology. Results discussed with patient. Advised anti-inflammatories for pain as directed. Can follow-up with PCP or orthopedics if pain persists. Work excuse provided. Patient understands and agrees with plan. - Diagnoses Differential Diagnosis/HQI/PQRI: Positive: Arthritis, DVT, Fracture (Closed), Sprain, Strain Provider Diagnoses: Arthritis of knee, Knee pain Discharge ED - Sign-Out/Discharge Documenting (check all that apply): Patient Departure Patient Received Moderate/Deep Sedation with Procedure: No - Discharge Plan Condition: Good Disposition: HOME Patient Education Materials: Knee Pain (ED), Osteoarthritis (ED) Forms: *Work Release Referrals: Sameer Renteria MD [Primary Care Provider] - Additional Instructions: Schedule a follow up appointment if pain persist Ibuprofen for pain as directed Ice and elevate Activity as tolerated Return to ER if symptoms change or worsen - Billing Disposition and Condition Condition: GOOD Disposition: Home
[2018-12-31 15:16] VITALS: BP 147/94
== END 2018-12-31 15:14 | disposition home or self-care (01) ==
LOC: ED 11:57
DX: M17.11 Unilateral primary osteoarthritis, right knee (principal); M25.561 Pain in right knee; M79.661 Pain in right lower leg; I10 Essential (primary) hypertension; J45.909 Unspecified asthma, uncomplicated; K21.9 Gastro-esophageal reflux disease without esophagitis; Z88.2 Allergy status to sulfonamides; Z88.1 Allergy status to other antibiotic agents; Z91.041 Radiographic dye allergy status; Z91.040 Latex allergy status; Z88.0 Allergy status to penicillin; Z91.013 Allergy to seafood; F17.210 Nicotine dependence, cigarettes, uncomplicated
CPT/HCPCS: 99282; A9270-GY

== ENCOUNTER 2019-03-14 14:02 | Emergency (ER) | payer SELFPAY ==
--- NOTE | 2019-03-14 14:49 | ED ---
Influenza-Like Illness - HPI Summary HPI Summary: Patient complains of productive cough with green sputum, small amount of green nasal discharge, body aches, chills, positive facial pressure, mild nausea 5 days with fever up to 100 last night. States she woke up with temperature 90.8 this morning. Has not taken any ibuprofen or Tylenol. States cough is keeping her up at night. Denies headache, neck stiffness, ear pain, sore throat, CP, SOB, V/D, abdominal pain, change in urine, change in BM. Medical history is asthma, DM, gout. Patient has an inhaler at home. - History of Current Complaint Chief Complaint: EDFluSymptoms Time Seen by Provider: 03/14/19 14:36 Hx Obtained From: Patient Onset/Duration: Gradual Onset, Lasting Days Severity: Moderate Associated Signs & Symptoms: Myalgia, Cough, Nasal Congestion, Headache - Allergy/Home Medications Allergies/Adverse Reactions: Allergies Allergy/AdvReac Type Severity Reaction Status Date / Time ciprofloxacin [From Cipro] Allergy Hives Verified 03/14/19 14:05 gatifloxacin [From Tequin] Allergy Rash Verified 03/14/19 14:05 Iodine and Iodide Containing Allergy Hives Verified 03/14/19 14:05 Produc latex Allergy Rash Verified 03/14/19 14:05 Penicillins Allergy Hives Verified 03/14/19 14:05 shellfish derived Allergy Anaphylatic Verified 03/14/19 14:05 Shock Sulfa (Sulfonamide Allergy Hives Verified 03/14/19 14:05 Antibiotics) PMH/Surg Hx/FS Hx/Imm Hx Endocrine/Hematology History: Denies: Hx Anticoagulant Therapy, Hx Diabetes, Hx Sickle Cell Disease, Hx Thyroid Disease Cardiovascular History: Reports: Hx Hypertension - ON DAILY MEDS, STATES CONTROLLED Denies: Hx Pacemaker/ICD, Other Cardiovascular Problems/Disorders Respiratory History: Reports: Hx Asthma - CONTROLLED WITH MEDS, USED INHALERS - STATES OK TODAY, Hx Seasonal Allergies - summer Denies: Hx Chronic Obstructive Pulmonary Disease (COPD), Other Respiratory Problems/Disorders GI History: Reports: Hx Gastroesophageal Reflux Disease - ON MED PT.STATES CONTROLLED Denies: Hx Ulcer, Other GI Disorders History: Denies: Hx Renal Disease, Other Problems/Disorders Musculoskeletal History: Denies: Other Musculoskeletal History Sensory History: Denies: Hx Contacts or Glasses, Hx Deafness, Hx Hearing Aid, Hx Hearing Problem Opthamlomology History: Denies: Hx Contacts or Glasses EENT History: Denies: Hx Deafness Neurological History: Denies: Hx Dementia, Hx Seizures, Other Neuro Impairments/Disorders Psychiatric History: Reports: Hx Anxiety, Hx Depression Denies: Hx Panic Disorder, Hx Substance Abuse - Surgical History Surgery Procedure, Year, and Place: 2006- TUBAL LIG[place] [facility] [place] total hyste[place]. 2006 - Rt WRIST GANGLION CYST REMOVED [facility] [place]. 05/22 Rt EAR LESION REMOVED [facility] [place]. D&C - 2008 [facility] [place]. 2010- UTERINE ABLATION [facility] [place]. 2012 Rt FOOT - GANGLION CYST REMOVED- [facility] [place]. 2013 RT FOOT GANGLION CYST REMOVED [facility] [place]. REMOVAL OF OVARIAN [id number] Hx Anesthesia Reactions: No - Immunization History Date of Tetanus Vaccine: Unknown Infectious Disease History: No Infectious Disease History: Denies: Hx Hepatitis, Hx Human Immunodeficiency Virus (HIV), Traveled Outside the in Last 30 Days - Family History Known Family History: Positive: None, Hypertension, Diabetes, Non-Contributory Negative: Blood Disorder - Social History Alcohol Use: Rare Alcohol Amount: MAYBE 1 DRINK/MONTH Hx Substance Use: No Substance Use Type: Reports: None Hx Tobacco Use: Yes - not currently smoking Smoking Status (MU): Light Every Day Tobacco Smoker Type: Cigarettes Amount Used/How Often: 1 [id number] 3 YRS Length of Time of Smoking/Using Tobacco: 14 YRS Have You Smoked in the Last Year: Yes Review of Systems Positive: Fever, Chills Eyes: Negative Positive: Nasal Discharge Cardiovascular: Negative Positive: Cough Positive: Nausea Genitourinary: Negative Musculoskeletal: Negative Skin: Negative Neurological: Negative Psychological: Normal All Other Systems Reviewed And Are Negative: Yes Physical Exam Triage Information Reviewed: Yes Vital Signs On Initial Exam: Initial Vitals Temp Pulse Resp BP Pulse Ox 99.0 F 109 19 146/102 98 03/14/19 14:03 03/14/19 14:03 03/14/19 14:03 03/14/19 14:03 03/14/19 14:03 Vital Signs Reviewed: Yes Appearance: Positive: Well-Appearing Skin: Positive: Warm Head/Face: Positive: Normal Head/Face Inspection Eyes: Positive: Normal ENT: Positive: Normal ENT inspection Neck: Positive: Supple Respiratory/Lung Sounds: Positive: Clear to Auscultation Cardiovascular: Positive: Normal Abdomen Description: Positive: Nontender Musculoskeletal: Positive: Normal Neurological: Positive: Normal Psychiatric: Positive: Normal AVPU Assessment: Alert - [place] Coma Scale Best Eye Response: 4 - Spontaneous Best Motor Response: 6 - Obeys Commands Best Verbal Response: 5 - Oriented Coma Scale Total: 15 Procedures - Sedation Patient Received Moderate/Deep Sedation with Procedure: No Diagnostics - Vital Signs Vital Signs Temp Pulse Resp BP Pulse Ox 03/14/19 14:03 99.0 F 109 19 146/102 98 - Laboratory Lab Statement: Any lab studies that have been ordered have been reviewed, and results considered in the medical decision making process. Flu Symptom Course/Dx - Course Course Of Treatment: Patient complains of productive cough with green sputum, small amount of green nasal discharge, body aches, chills, positive facial pressure, mild nausea 5 days with fever up to 100 last night. States she woke up with temperature 90.8 this morning. Has not taken any ibuprofen or Tylenol. States cough is keeping her up at night. Denies headache, neck stiffness, ear pain, sore throat, CP, SOB, V/D, abdominal pain, change in urine, change in BM. Medical history is asthma, DM, gout. Patient has an inhaler at home. Vital signs within normal limits. Rx for azithromycin, Tessalon Perles and Robitussin with codeine for nighttime cough. - Diagnoses Provider Diagnoses: Respiratory infection Discharge ED - Sign-Out/Discharge Documenting (check all that apply): Patient Departure - Discharge Plan Condition: Stable Disposition: HOME Prescriptions: Azithromycin 250 mg PO DAILY 5 Days #4 tablet Benzonatate CAP* [Tessalon 100 MG CAP*] 200 mg PO TID 6 Days #40 cap guaiFENesin/CODIENE 100mg/10mg [Robitussin AC 100Mg/10Mg in 5 ml] 10 ml PO Q4H PRN 2 Days #120 udc MDD 60 ml PRN Reason: Cough Patient Education Materials: Upper Respiratory Infection (ED), Acute Cough (ED) Referrals: Sameer Renteria MD [Primary Care Provider] - Additional Instructions: Take antibiotics as directed. Take Tessalon as directed during the day for cough. Take Robitussin as directed at night for cough. Follow-up with primary care. - Billing Disposition and Condition Condition: STABLE Disposition: Home
[2019-03-14] MEDS ORDERED: Benzonatate CAP* 100 MG PO ONE (15:00)
[2019-03-14] MEDS ORDERED: Azithromycin TAB* 250 MG PO ONE (15:00)
[2019-03-14 15:41] VITALS: BP 136/90
== END 2019-03-14 15:36 | disposition home or self-care (01) ==
LOC: ED 14:02
DX: J06.9 Acute upper respiratory infection, unspecified (principal); E11.9 Type 2 diabetes mellitus without complications; I10 Essential (primary) hypertension; J45.909 Unspecified asthma, uncomplicated; K21.9 Gastro-esophageal reflux disease without esophagitis; F41.9 Anxiety disorder, unspecified; F32.9 Major depressive disorder, single episode, unspecified; F17.210 Nicotine dependence, cigarettes, uncomplicated; Z79.899 Other long term (current) drug therapy; Z98.51 Tubal ligation status; Z90.710 Acquired absence of both cervix and uterus; Z88.0 Allergy status to penicillin; Z88.2 Allergy status to sulfonamides; Z88.1 Allergy status to other antibiotic agents; Z91.041 Radiographic dye allergy status; Z91.040 Latex allergy status
CPT/HCPCS: 99282; A9270-GY

== ENCOUNTER 2019-06-14 08:17 | Emergency (ER) | payer SELFPAY ==
--- NOTE | 2019-06-14 08:40 | ED ---
Lower Extremity - HPI Summary HPI Summary: Patient is a 43-year-old female who presents emergency department for worsening left knee and Pain times several days. Patient notes a history of osteoarthritis and occasionally gets pain to her knees but states pain today is different and more severe. Patient and she works 2 jobs that requires standing for longs periods of time. Patient states she also noticed swelling to her left lower leg. Denies chest pain, shortness of breath, fever. Daily smoker. Otherwise denies past medical history. Symptoms are fyql-no-oeajbyje in severity. Walking makes symptoms worse. Nothing makes symptoms better. - History of Current Complaint Chief Complaint: EDExtremityLower Stated Complaint: BILAT KNEE PAIN PER PT Time Seen by Provider: 06/14/19 08:38 Hx Obtained From: Patient Pain Intensity: 10 - Allergies/Home Medications Allergies/Adverse Reactions: Allergies Allergy/AdvReac Type Severity Reaction Status Date / Time ciprofloxacin [From Cipro] Allergy Hives Verified 03/14/19 14:05 gatifloxacin [From Tequin] Allergy Rash Verified 03/14/19 14:05 Iodine and Iodide Containing Allergy Hives Verified 03/14/19 14:05 Produc latex Allergy Rash Verified 03/14/19 14:05 Penicillins Allergy Hives Verified 03/14/19 14:05 shellfish derived Allergy Anaphylatic Verified 03/14/19 14:05 Shock Sulfa (Sulfonamide Allergy Hives Verified 03/14/19 14:05 Antibiotics) Home Medications: Home Medications Albuterol HFA INHALER* [Proair HFA Inhaler*] 2 puff INH Q4H PRN 10/28/12 [ History Confirmed 06/14/19] Omeprazole CAP (NF) [Prilosec CAP*] 20 mg PO DAILY 11/25/13 [History Confirmed 06/14/19] amLODIPine TAB* [Norvasc TAB*] 10 mg PO DAILY 07/27/15 [History Confirmed ] Albuterol HFA INHALER* [Ventolin HFA Inhaler*] 2 puff INH Q4H PRN 06/14/19 [ History Confirmed 06/14/19] GuaiFENesin DM 100 mg/10 mg [Robitussin DM*] 10 ml PO QID PRN 06/14/19 [History Confirmed 06/14/19] Mirtazapine TAB* [Remeron TAB*] 15 mg PO BEDTIME 06/14/19 [History Confirmed 06/30] Mometasone NASAL (NF) [Nasonex (NF)] 2 spray BOTH NARES DAILY 06/14/19 [History Confirmed 06/14/19] Montelukast Sodium TAB* [Singulair TAB*] 10 mg PO DAILY 06/14/19 [History Confirmed 06/14/19] Oxymetazoline 0.05% NASAL SPR* [Afrin 0.05% NASAL SPRAY*] 2 spray BOTH NARES BID 06/14/19 [History Confirmed 06/14/19] Polyethylene Glycol 3350* [Miralax (17 GM DOSE FADI)] 17 gm PO DAILY 06/14/19 [ History Confirmed 06/14/19] busPIRone TAB* [Buspar TAB*] 5 mg PO BID PRN 06/14/19 [History Confirmed ] PMH/Surg Hx/FS Hx/Imm Hx Previously Healthy: Yes Endocrine/Hematology History: Denies: Hx Anticoagulant Therapy, Hx Diabetes, Hx Sickle Cell Disease, Hx Thyroid Disease Cardiovascular History: Reports: Hx Hypertension - ON DAILY MEDS, STATES CONTROLLED Denies: Hx Pacemaker/ICD, Other Cardiovascular Problems/Disorders Respiratory History: Reports: Hx Asthma - CONTROLLED WITH MEDS, USED INHALERS - STATES OK TODAY, Hx Seasonal Allergies - summer Denies: Hx Chronic Obstructive Pulmonary Disease (COPD), Other Respiratory Problems/Disorders GI History: Reports: Hx Gastroesophageal Reflux Disease - ON MED PT.STATES CONTROLLED Denies: Hx Ulcer, Other GI Disorders History: Denies: Hx Renal Disease, Other Problems/Disorders Musculoskeletal History: Denies: Other Musculoskeletal History Sensory History: Denies: Hx Contacts or Glasses, Hx Deafness, Hx Hearing Aid, Hx Hearing Problem Opthamlomology History: Denies: Hx Contacts or Glasses Neurological History: Denies: Hx Dementia, Hx Seizures, Other Neuro Impairments/Disorders Psychiatric History: Reports: Hx Anxiety, Hx Depression Denies: Hx Panic Disorder, Hx Substance Abuse - Surgical History Surgery Procedure, Year, and Place: [place] [facility] [place]. 2006 - Rt WRIST G[place] [facility] [place] E[place] [facility] [place] [facility] [place] [facility] [place] Rt [place]OT - GANGL[place] [facility] [place] FOOT [place] [facility] [place]OVAL OF OVARIAN [id number] Hx Anesthesia Reactions: No - Immunization History Date of Tetanus Vaccine: Unknown Infectious Disease History: No Infectious Disease History: Denies: Hx Hepatitis, Hx Human Immunodeficiency Virus (HIV), Traveled Outside the [place] in Last 30 Days - Family History Known Family History: Positive: None, Hypertension, Diabetes, Non-Contributory Negative: Blood Disorder - Social History Occupation: Unemployed Lives: With Family Alcohol Use: Rare Alcohol Amount: MAYBE 1 DRINK/MONTH Hx Substance Use: No Substance Use Type: Reports: None Hx Tobacco Use: Yes - not currently smoking Smoking Status (MU): Light Every Day Tobacco Smoker Type: Cigarettes Amount Used/How Often: 1 [id number] 3 YRS Length of Time of Smoking/Using Tobacco: 14 YRS Have You Smoked in the Last Year: Yes Review of Systems Constitutional: Negative Negative: Fever, Chills Positive: Other - Left knee pain and calf pain/swelling. Neurological/Mental Status: Negative Negative: Weakness, Paresthesia, Numbness All Other Systems Reviewed And Are Negative: Yes Physical Exam Triage Information Reviewed: Yes Vital Signs On Initial Exam: Initial Vitals Temp Pulse Resp BP Pulse Ox 97.7 F 104 16 144/102 98 06/14/19 08:19 06/14/19 08:19 06/14/19 08:19 06/14/19 08:19 06/14/19 08:19 Vital Signs Reviewed: Yes Appearance: Positive: Well-Appearing - Pt. lying in bed in NAD. Skin: Positive: Warm, Dry Head/Face: Positive: Normal Head/Face Inspection Eyes: Positive: Normal, EOMI Neck: Positive: Supple Musculoskeletal: Positive: Other - Mild edame to left lower leg. Good pedal pulse. Full ROM of left knee with pain. No overlying erythema or warmth. Posterior knee and calf pain on palpation. Neurological: Positive: Normal, CN Intact II-III Psychiatric: Positive: Affect/Mood Appropriate Procedures - Sedation Patient Received Moderate/Deep Sedation with Procedure: No Diagnostics - Vital Signs Vital Signs Temp Pulse Resp BP Pulse Ox 06/14/19 08:19 97.7 F 104 16 144/102 98 - Laboratory Lab Statement: Any lab studies that have been ordered have been reviewed, and results considered in the medical decision making process. Lower Extremity Course/Dx - Course Course Of Treatment: She with increased left knee pain and calf pain and minimal swelling. Neurovascular intact. We'll obtain x-ray and venous duplex to rule out DVT. Toradol given for pain. Ultrasound negative for DVT per radiology. X-ray shows worsening arthritic changes without acute findings per radiology. Results discussed. Work excuse given. Will have patient follow-up with PCP and orthopedics for further management. Continue anti-inflammatories as directed. Patient understands and agrees with plan. - Diagnoses Differential Diagnosis/HQI/PQRI: Positive: Arthritis, DVT, Fracture (Closed), Sprain, Strain Provider Diagnoses: Osteoarthritis, Knee pain Discharge ED - Sign-Out/Discharge Documenting (check all that apply): Patient Departure - Discharge Plan Condition: Improved Disposition: HOME Patient Education Materials: Osteoarthritis (ED), Knee Pain (ED) Forms: *Work Release Referrals: Franco Bridges MD [Medical Doctor] - Sameer Renteria MD [Primary Care Provider] - Additional Instructions: Follow up with PCP May need referral to orthopedics if pain persist Ice and elevate Ibuprofen 400mg every 6 hours for pain as directed Return to ER if symptoms change or worsen - Billing Disposition and Condition Condition: IMPROVED Disposition: Home - Attestation Statements Provider Attestation: I was available for consultation for this patient. I did not evaluate the patient or participate in any medical decision making or disposition decisions unless I am specifically named in the chart as having consulted on the patient. If I have consulted on the patient, please see my own ED note on the patient encounter. Leonel Miller MD
[2019-06-14] MEDS ORDERED: Ketorolac *IM* INJ* 60 MG/2 ML VIAL IM ONE (10:31)
[2019-06-14 11:04] VITALS: BP 128/76
== END 2019-06-14 11:03 | disposition home or self-care (01) ==
LOC: ED 08:17
DX: M17.12 Unilateral primary osteoarthritis, left knee (principal); M25.562 Pain in left knee; R60.0 Localized edema; I10 Essential (primary) hypertension; J45.909 Unspecified asthma, uncomplicated; K21.9 Gastro-esophageal reflux disease without esophagitis; F41.9 Anxiety disorder, unspecified; Z79.51 Long term (current) use of inhaled steroids; Z79.899 Other long term (current) drug therapy; Z88.1 Allergy status to other antibiotic agents; Z91.040 Latex allergy status; Z88.0 Allergy status to penicillin; Z91.013 Allergy to seafood; Z88.2 Allergy status to sulfonamides; Z91.048 Other nonmedicinal substance allergy status; F17.210 Nicotine dependence, cigarettes, uncomplicated
CPT/HCPCS: 96372; 99282; J1885

== ENCOUNTER 2019-07-31 20:48 | Emergency (ER) | payer SELFPAY ==
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
--- OUTSIDE RECORDS SUMMARY | 2019-07-31 21:00 | XMS REPORT | Continuity of Care Document ---
:1975 External Reference #:[id number] Author Name Mili Rowe, ALFONSO Address [address] [place] [address] Care Team Providers Name Role Phone Maribell Gallagher M.D. - Family Care Team Information Leasing Professional Medicine Sameer Renteria MD - Family Care Team Information Leasing Professional Medicine pre billing specialist - Obstetrics & Gynecology Care Team Information Leasing Professional Uli Finley - Arch Support Maker Care Team Information Leasing Professional [facility] [place] Pre-Admission Testing - Care Team Information Leasing Professional [phone] Clinic/Center Problems Active Problems Provider Date Acute [...] 03/01/2012 Hypertrophic & Atrophic Conditions Of Sameer Renteria M.D. Onset: 2011 Skin Other Ganglion cyst [...] take 2 by mouth 10tabs J35.1 Mili C. 07/26/2019 20mg as one dose daily ALFONSO [...] Lee 06/23/2018 5mg by mouth twice a Breiman, M.D. 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[employer] TEACHER 04/11/2019 Capsules days Tessalon Naida take 2 tablets 30caps J02.9 Jayda Ciara 04/04/2019 - every 8 hours as ALFONSO [...] Available Procedures Date Code Description Status 04/13/2012 [id number] Mammogram Completed Medical Devices Description No Information [...] Provider 07/26/2019 J45.909 Unspecified asthma, uncomplicated Mili Rowe, ALFONSO 07/26/2019 J35.1 Hypertrophy of tonsils Mili Rowe NP 07/26/2019 F41.9 Anxiety disorder, unspecified Mili Rowe, ALFONSO 07/26/2019 J30.2 Other seasonal allergic rhinitis Mili Rowe, ALFONSO 07/13/2019 J01.90 Acute sinusitis, unspecified Sameer Renteria M.D. 07/13/2019 J45.909 Unspecified asthma, uncomplicated Sameer Renteria M.D. 04/04/2019 J02.9 Acute pharyngitis, unspecified Jayda Doshi NP Plan of Treatment 07/26/2019 - Mili Rowe NPJ45.909 Unspecified asthma, lpqmkpxejabgsO92.1 Hypertrophy of tonsilsNew Medication:Prednisone 20 mg - [...] Dr. Lopez if need be.F41.9 Anxiety disorder, gzbgwlqqbmjE26.2 Other seasonal allergic rhinitisComments:Restart your nasonex.AllComments:1. Patient [...]
--- NOTE | 2019-07-31 22:07 | ED ---
Complex/Multi-Sys Presentation - HPI Summary HPI Summary: Patient is a 43 y/o F presenting to [facility] with complaints of head/sinus pressure , nasal congestion, jitteriness and eye puffiness and itching. Sx have been present for the past four days. Frontal CHIU pressure is noted to radiate to the back of her neck. Fever, cough, SOB, abdominal pain are denied. She reports Hx of seasonal allergies and states that she typically gets flare-ups around this time of year but also notes that she has not experienced jittering with previous episodes. Patient had been recently evaluated by her PCP and was prescribed cetirizine and a nasal spray but reports minimal relief with these medications. She was also placed on prednisone, which she notes provided some relief in her Sx, but she has since finished her prescription. Home medications and allergies are reviewed. Home Medications Medication Instructions Recorded Confirmed Type Albuterol HFA INHALER* [Proair HFA 2 puff INH Q4H PRN 10/28/12 06/14/19 History Inhaler*] Omeprazole CAP (NF) [Prilosec CAP*] 20 mg PO DAILY 11/25/13 06/14/19 History amLODIPine TAB* [Norvasc TAB*] 10 mg PO DAILY 07/27/15 06/14/19 History Albuterol HFA INHALER* [Ventolin 2 puff INH Q4H PRN 06/14/19 06/14/19 History HFA Inhaler*] GuaiFENesin DM 100 mg/10 mg 10 ml PO QID PRN 06/14/19 06/14/19 History [Robitussin DM*] Mirtazapine TAB* [Remeron TAB*] 15 mg PO BEDTIME 06/14/19 06/14/19 History Mometasone NASAL (NF) [Nasonex 2 spray BOTH NARES DAILY 06/14/19 06/14/19 History (NF)] Montelukast Sodium TAB* [Singulair 10 mg PO DAILY 06/14/19 06/14/19 History TAB*] Oxymetazoline 0.05% NASAL SPR* 2 spray BOTH NARES BID 06/14/19 06/14/19 History [Afrin 0.05% NASAL SPRAY*] Polyethylene Glycol 3350* [Miralax 17 gm PO DAILY 06/14/19 06/14/19 History (17 GM DOSE FADI)] busPIRone TAB* [Buspar TAB*] 5 mg PO BID PRN 06/14/19 06/14/19 History Olopatadine 0.1% OPHTH (NF) 1 drop BOTH EYES BID #1 btl 07/31/19 Rx [Patanol 0.1% OPHTH (NF)] - History Of Current Complaint Chief Complaint: EDHeadache Time Seen by Provider: 07/31/19 21:57 Hx Obtained From: Patient Onset/Duration: Lasting Days Timing: Days Location: Pain At: - sinuses, CHIU, back neck Character: Pressure Associated Signs And Symptoms: Positive: Headache, Other - positive - head/ sinus pressure, nasal congestion, jitteriness and eye puffiness and itching. Negative: SOB, Cough, Abdominal Pain, Fever - Allergies/Home Medications Allergies/Adverse Reactions: Allergies Allergy/AdvReac Type Severity Reaction Status Date / Time ciprofloxacin [From Cipro] Allergy Hives Verified 08/02/19 03:15 gatifloxacin [From Tequin] Allergy Rash Verified 08/02/19 03:15 Iodine and Iodide Containing Allergy Hives Verified 08/02/19 03:15 Produc latex Allergy Rash Verified 08/02/19 03:15 Penicillins Allergy Hives Verified 08/02/19 03:15 shellfish derived Allergy Anaphylatic Verified 08/02/19 03:15 Shock Sulfa (Sulfonamide Allergy Hives Verified 08/02/19 03:15 Antibiotics) Home Medications: Home Medications Albuterol HFA INHALER* [Proair HFA Inhaler*] 2 puff INH Q4H PRN 10/28/12 [ History Confirmed 08/02/19] Omeprazole CAP (NF) [Prilosec CAP*] 20 mg PO SEE INSTRUCTIONS PRN 11/25/13 [ History Confirmed 08/02/19] amLODIPine TAB* [Norvasc TAB*] 10 mg PO DAILY 07/27/15 [History Confirmed ] Albuterol HFA INHALER* [Ventolin HFA Inhaler*] 2 puff INH Q4H PRN 06/14/19 [ History Confirmed 08/02/19] GuaiFENesin DM 100 mg/10 mg [Robitussin DM*] 10 ml PO QID PRN 06/14/19 [History Confirmed 08/02/19] Mirtazapine TAB* [Remeron TAB*] 15 mg PO BEDTIME 06/14/19 [History Confirmed ] Montelukast Sodium TAB* [Singulair TAB*] 10 mg PO DAILY 06/14/19 [History Confirmed 08/02/19] Oxymetazoline 0.05% NASAL SPR* [Afrin 0.05% NASAL SPRAY*] 2 spray BOTH NARES BID 06/14/19 [History Confirmed 08/02/19] Polyethylene Glycol 3350* [Miralax (17 GM DOSE FADI)] 17 gm PO SEE INSTRUCTIONS PRN 06/14/19 [History Confirmed 08/02/19] busPIRone TAB* [Buspar TAB*] 5 mg PO BID PRN 06/14/19 [History Confirmed ] Olopatadine 0.1% OPHTH (NF) [Patanol 0.1% OPHTH (NF)] 1 drop BOTH EYES BID #1 btl 07/31/19 [Rx Confirmed 08/02/19] Fluticasone Propion/Salmeterol [Wixela 250-50 Inhub] 1 puff INH DAILY 08/02/19 [ History Confirmed 08/02/19] PMH/Surg Hx/FS Hx/Imm Hx Endocrine/Hematology History: Denies: Hx Anticoagulant Therapy, Hx Diabetes, Hx Sickle Cell Disease, Hx Thyroid Disease Cardiovascular History: Reports: Hx Hypertension - ON DAILY MEDS, STATES CONTROLLED Denies: Hx Pacemaker/ICD, Other Cardiovascular Problems/Disorders Respiratory History: Reports: Hx Asthma - CONTROLLED WITH MEDS, USED INHALERS - STATES OK TODAY, Hx Seasonal Allergies - summer Denies: Hx Chronic Obstructive Pulmonary Disease (COPD), Other Respiratory Problems/Disorders GI History: Reports: Hx Gastroesophageal Reflux Disease - ON MED PT.STATES CONTROLLED Denies: Hx Ulcer, Other GI Disorders History: Denies: Hx Renal Disease, Other Problems/Disorders Musculoskeletal History: Denies: Other Musculoskeletal History Sensory History: Denies: Hx Contacts or Glasses, Hx Deafness, Hx Hearing Aid, Hx Hearing Problem Opthamlomology History: Denies: Hx Contacts or Glasses Neurological History: Denies: Hx Dementia, Hx Seizures, Other Neuro Impairments/Disorders Psychiatric History: Reports: Hx Anxiety, Hx Depression Denies: Hx Panic Disorder, Hx Substance Abuse - Surgical History Surgery Procedure, Year, and Place: 2005- [place] LIGATION [facility] [place]2014 total [place]. 2006 - Rt WRIST GANGLION CYST REMOVED [facility] [place]. 05/22 Rt EAR LESION REMOVED [facility] [place]. D&C - 2008 [facility] [place] 2010- UTERINE ABLATION [facility] [place]. 2012 Rt FOOT - GANGLION CYST REMOVED- [facility] [place]. 2013 RT FOOT GANGLION CYST REMOVED [facility] [place]. REMOVAL OF OVARIAN [id number] Hx Anesthesia Reactions: No - Immunization History Date of Tetanus Vaccine: Unknown Infectious Disease History: No Infectious Disease History: Denies: Hx Hepatitis, Hx Human Immunodeficiency Virus (HIV), Traveled Outside the [place] in Last 30 Days - Family History Known Family History: Positive: Hypertension, Diabetes Negative: Blood Disorder - Social History Alcohol Use: Rare Alcohol Amount: MAYBE 1 DRINK/MONTH Hx Substance Use: No Substance Use Type: Reports: None Hx Tobacco Use: Yes - not currently smoking Smoking Status (MU): Light Every Day Tobacco Smoker Type: Cigarettes Amount Used/How Often: 1 [id number] 3 YRS Length of Time of Smoking/Using Tobacco: 14 YRS Have You Smoked in the Last Year: Yes Review of Systems Positive: Other - jittering . Negative: Fever Eyes: Other - eye puffiness and itching ENT: Other - positive - sinus pressure Positive: Nasal Discharge - congestion Negative: Shortness Of Breath, Cough Negative: Abdominal Pain Positive: Headache All Other Systems Reviewed And Are Negative: Yes Physical Exam - Summary Physical Exam Summary: Appearance: Well-appearing, Well-nourished, lying in bed comfortable Skin: Warm, dry, no obvious rash Eyes: swelling of eyelids with mild conjunctiva inflammation; sclera anicteric, no conjunctival pallor HENT: mucous membranes moist Neck: deferred Respiratory: No signs of respiratory distress Cardiovascular: Appears well perfused, pulses are nml Abdomen: deferred Musculoskeletal: Moving all 4 extremities without obvious discomfort Neurological: Awake and alert, mentation is normal, speech is fluent and appropriate Psychiatric: affect is normal, does not appear anxious or depressed Triage Information Reviewed: Yes Vital Signs On Initial Exam: Initial Vitals Temp Pulse Resp BP Pulse Ox 98.8 F 95 16 157/107 98 07/31/19 20:50 07/31/19 20:50 07/31/19 20:50 07/31/19 20:50 07/31/19 20:50 Vital Signs Reviewed: Yes Procedures - Sedation Patient Received Moderate/Deep Sedation with Procedure: No Diagnostics - Vital Signs Vital Signs Temp Pulse Resp BP Pulse Ox 07/31/19 20:50 98.8 F 95 16 157/107 98 - Laboratory Lab Statement: Any lab studies that have been ordered have been reviewed, and results considered in the medical decision making process. Complex Multi-Symp Course/Dx Course Of Treatment: Patient is a 43 y/o F presenting to [facility] with complaints of head/sinus pressure, nasal congestion, jitteriness and eye puffiness and itching. Sx have been present for the past four days. Frontal CHIU pressure is noted to radiate to the back of her neck. Fever, cough, SOB, abdominal pain are denied. She reports Hx of seasonal allergies and states that she typically gets flare-ups around this time of year but also notes that she has not experienced jittering with previous episodes. Patient had been recently evaluated by her PCP and was prescribed cetirizine and a nasal spray but reports minimal relief with these medications. She was also placed on prednisone, which she notes provided some relief in her Sx, but she has since finished her prescription. On physical exam, swelling of eyelids with mild conjunctival inflammation noted. Patient was prescribed patanol. She was advised to use a nedi pot, mucinex, and afrin as well. She was discharged to home and will followup with PCP as needed. - Diagnoses Provider Diagnoses: Allergic sinusitis, Allergic rhinitis, Allergic conjunctivitis - Critical Care Time Critical Care Statement: Critical care time is provided exclusive of any time spent performing procedures. Discharge ED - Sign-Out/Discharge Documenting (check all that apply): Patient Departure - discharge - Discharge Plan Condition: Stable Disposition: HOME Prescriptions: Olopatadine 0.1% OPHTH (NF) [Patanol 0.1% OPHTH (NF)] 1 drop BOTH EYES BID #1 btl Patient Education Materials: Allergic Rhinitis (ED) Referrals: Sameer Renteria MD [Primary Care Provider] - Additional Instructions: Sinus washes like nedi pot can be helpful, also decongestants like mucinex and nose sprays like afrin can help with symptoms temporarily. I have also sent an rx for patanol for your eyes. - Billing Disposition and Condition Condition: STABLE Disposition: Home - Attestation Statements Document Initiated by Scribe: Yes Documenting Scribe: ELI MILLER Provider For Whom Scribe is Documenting (Include Credential): MD Patricia ARIAS Attestation: I, ELI MILLER, scribed for OSMANY NAYAK MD on 08/04/19 at 2106. Scribe Documentation Reviewed: Yes Provider Attestation: The documentation as recorded by the [email or web address] accurately reflects the service I personally performed and the decisions made by me, OSMANY NAYAK MD Status of Scribe Document: Viewed
[2019-07-31 22:24] VITALS: BP 158/109
== END 2019-07-31 22:23 | disposition home or self-care (01) ==
LOC: ED 20:48
DX: J30.9 Allergic rhinitis, unspecified (principal); H10.10 Acute atopic conjunctivitis, unspecified eye; R09.81 Nasal congestion; R51 Headache; I10 Essential (primary) hypertension; F41.9 Anxiety disorder, unspecified; F32.9 Major depressive disorder, single episode, unspecified; F17.210 Nicotine dependence, cigarettes, uncomplicated; K21.9 Gastro-esophageal reflux disease without esophagitis
CPT/HCPCS: 99282

== ENCOUNTER 2019-08-02 03:00 | Emergency (ER) | payer SELFPAY ==
[2019-08-02 04:35] LABS: ABS Eosinophils 0.1 10^3/ul (0-0.6); ABS Lymphocytes 2.2 10^3/ul (1.0-4.8); ABS Monocytes 0.5 10^3/ul (0-0.8); Eosinophil % 1.5 %; Hematocrit 40 % (35-47); Hemoglobin 13.3 g/dL (12.0-16.0); Mean Corpuscular HGB Conc 33 g/dL (31-36); Mean Corpuscular Hemoglobin 30 pg (27-31); Mean Corpuscular Volume 89 fL (80-97); Nucleated Red Blood Cells % 0.1; Platelet Count 333 10^3/uL (150-450); Red Blood Count 4.49 10^6 /uL (3.70-4.87); Red Cell Distribution Width 14 % (10-15); White Blood Count 7.8 10^3/uL (3.5-10.8)
[2019-08-02 04:42] LABS: INR 0.98 (0.82-1.09)
[2019-08-02] MEDS ORDERED: Acetaminophen TAB* 325 MG PO ONE (04:47)
[2019-08-02 04:56] LABS: Albumin/Globulin Ratio 1.2 (1-3); BUN/Creatinine Ratio 16.3 (8-20); EGFR African American 95.2 (>60); EGFR Non-African American 78.7 (>60); Globulin 3.4 g/dL (2-4); Potassium 3.6 mmol/L (3.5-5.0); Total Bilirubin 0.3 mg/dL (0.2-1.0); Total Protein 7.4 g/dL (6.4-8.9)
[2019-08-02 05:07] LABS: TSH (Thyroid Stimulating Horm) 2.49 mcIU/mL (0.34-5.60)
--- NOTE | 2019-08-02 05:31 | ED ---
Palpitations / Dysrhythmia - HPI Summary HPI Summary: Patient is a 43 y/o F w/ Hx of HTN, asthma, and seasonal allergies who presents to [facility] with chief complaint of palpitations. She states that the palpitations onset yesterday and have been present intermittently. Palpitations are characterized as a fluttering sensation. Patient notes that she was awoken this evening by her palpitations. She additionally states that she has been feeling jittery. Sx are currently resolved. She denies chest pain, SOB, cough, fever, N/ V/D. Patient has been somewhat constipated and additionally notes that she has a CHIU. No similar previous episodes of Sx noted. Patient was evaluated yesterday at [facility] for sinus Sx that she has been experiencing for the past week. Patient had finished prednisone two days ago, has been taking a nasal spray, and was prescribed eye droplets during her most recent ED visit. Patient is additionally on BP and asthma medications. Home medications and allergies are reviewed. - History of Current Complaint Hx Obtained From: Patient Onset/Duration: Lasting Days, Resolved Timing: Intermittent Episodes Lasting: Severity Currently: None Character: Fluttering Associated Signs & Symptoms: Negative - Allergy/Home Medications Allergies/Adverse Reactions: Allergies Allergy/AdvReac Type Severity Reaction Status Date / Time ciprofloxacin [From Cipro] Allergy Hives Verified 08/02/19 03:15 gatifloxacin [From Tequin] Allergy Rash Verified 08/02/19 03:15 Iodine and Iodide Containing Allergy Hives Verified 08/02/19 03:15 Produc latex Allergy Rash Verified 08/02/19 03:15 Penicillins Allergy Hives Verified 08/02/19 03:15 shellfish derived Allergy Anaphylatic Verified 08/02/19 03:15 Shock Sulfa (Sulfonamide Allergy Hives Verified 08/02/19 03:15 Antibiotics) Home Medications: Home Medications Albuterol HFA INHALER* [Proair HFA Inhaler*] 2 puff INH Q4H PRN 10/28/12 [ History Confirmed 08/02/19] Omeprazole CAP (NF) [Prilosec CAP*] 20 mg PO SEE INSTRUCTIONS PRN 11/25/13 [ History Confirmed 08/02/19] amLODIPine TAB* [Norvasc TAB*] 10 mg PO DAILY 07/27/15 [History Confirmed ] Albuterol HFA INHALER* [Ventolin HFA Inhaler*] 2 puff INH Q4H PRN 06/14/19 [ History Confirmed 08/02/19] GuaiFENesin DM 100 mg/10 mg [Robitussin DM*] 10 ml PO QID PRN 06/14/19 [History Confirmed 08/02/19] Mirtazapine TAB* [Remeron TAB*] 15 mg PO BEDTIME 06/14/19 [History Confirmed ] Montelukast Sodium TAB* [Singulair TAB*] 10 mg PO DAILY 06/14/19 [History Confirmed 08/02/19] Oxymetazoline 0.05% NASAL SPR* [Afrin 0.05% NASAL SPRAY*] 2 spray BOTH NARES BID 06/14/19 [History Confirmed 08/02/19] Polyethylene Glycol 3350* [Miralax (17 GM DOSE FADI)] 17 gm PO SEE INSTRUCTIONS PRN 06/14/19 [History Confirmed 08/02/19] busPIRone TAB* [Buspar TAB*] 5 mg PO BID PRN 06/14/19 [History Confirmed ] Olopatadine 0.1% OPHTH (NF) [Patanol 0.1% OPHTH (NF)] 1 drop BOTH EYES BID #1 btl 07/31/19 [Rx Confirmed 08/02/19] Fluticasone Propion/Salmeterol [Wixela 250-50 Inhub] 1 puff INH DAILY 08/02/19 [ History Confirmed 08/02/19] PMH/Surg Hx/FS Hx/Imm Hx Endocrine/Hematology History: Denies: Hx Anticoagulant Therapy, Hx Diabetes, Hx Sickle Cell Disease, Hx Thyroid Disease Cardiovascular History: Reports: Hx Hypertension - ON DAILY MEDS, STATES CONTROLLED Denies: Hx Pacemaker/ICD, Other Cardiovascular Problems/Disorders Respiratory History: Reports: Hx Asthma - CONTROLLED WITH MEDS, USED INHALERS - STATES OK TODAY, Hx Seasonal Allergies - summer Denies: Hx Chronic Obstructive Pulmonary Disease (COPD), Other Respiratory Problems/Disorders GI History: Reports: Hx Gastroesophageal Reflux Disease - ON MED PT.STATES CONTROLLED Denies: Hx Ulcer, Other GI Disorders History: Denies: Hx Renal Disease, Other Problems/Disorders Musculoskeletal History: Denies: Other Musculoskeletal History Sensory History: Denies: Hx Contacts or Glasses, Hx Deafness, Hx Hearing Aid, Hx Hearing Problem Opthamlomology History: Denies: Hx Contacts or Glasses Neurological History: Denies: Hx Dementia, Hx Seizures, Other Neuro Impairments/Disorders Psychiatric History: Reports: Hx Anxiety, Hx Depression Denies: Hx Panic Disorder, Hx Substance Abuse - Surgical History Surgery Procedure, Year, and Place: 2006- TUBAL LIGATION [facility] [place]. 09/2014 total hysterectomy [place]. 2006 - Rt WRIST GANGLION CYST REMOVED [facility] [place]. 05/22 Rt EAR LESION REMOVED [facility] [place]. D&C - 2008 [facility] [place]. 2010- UTERINE ABLATION [facility] [place]. 2013 Rt FOOT - GANGLION CYST REMOVED- [facility] [place]. 2013 RT FOOT GANGLION CYST REMOVED [facility]. REMOVAL OF OVARIAN [id number] Hx Anesthesia Reactions: No - Immunization History Date of Tetanus Vaccine: Unknown Infectious Disease History: No Infectious Disease History: Denies: Hx Hepatitis, Hx Human Immunodeficiency Virus (HIV), Traveled Outside the in Last 30 Days - Family History Known Family History: Positive: Hypertension, Diabetes Negative: Blood Disorder - Social History Alcohol Use: Occasionally Alcohol Amount: MAYBE 1 DRINK/MONTH Hx Substance Use: No Substance Use Type: Reports: None Hx Tobacco Use: Yes - not currently smoking Smoking Status (MU): Light Every Day Tobacco Smoker Type: Cigarettes Amount Used/How Often: 1 [id number] 3 YRS Length of Time of Smoking/Using Tobacco: 14 YRS Have You Smoked in the Last Year: Yes Review of Systems - ROS Summary Review of Systems Summary: Home Medications Medication Instructions Recorded Confirmed Type Albuterol HFA INHALER* [Proair HFA 2 puff INH Q4H PRN 10/28/12 08/02/19 History Inhaler*] Omeprazole CAP (NF) [Prilosec CAP*] 20 mg PO SEE INSTRUCTIONS PRN 11/25/1308/01 History amLODIPine TAB* [Norvasc TAB*] 10 mg PO DAILY 07/27/15 08/02/19 History Albuterol HFA INHALER* [Ventolin 2 puff INH Q4H PRN 06/14/19 08/02/19 History HFA Inhaler*] GuaiFENesin DM 100 mg/10 mg 10 ml PO QID PRN 06/14/19 08/02/19 History [Robitussin DM*] Mirtazapine TAB* [Remeron TAB*] 15 mg PO BEDTIME 06/14/19 08/02/19 History Montelukast Sodium TAB* [Singulair 10 mg PO DAILY 06/14/19 08/02/19 History TAB*] Oxymetazoline 0.05% NASAL SPR* 2 spray BOTH NARES BID 06/14/19 08/02/19 History [Afrin 0.05% NASAL SPRAY*] Polyethylene Glycol 3350* [Miralax 17 gm PO SEE INSTRUCTIONS PRN 06/14/19 History (17 GM DOSE FADI)] busPIRone TAB* [Buspar TAB*] 5 mg PO BID PRN 06/14/19 08/02/19 History Olopatadine 0.1% OPHTH (NF) 1 drop BOTH EYES BID #1 btl 07/31/19 08/02/19 Rx [Patanol 0.1% OPHTH (NF)] Fluticasone Propion/Salmeterol 1 puff INH DAILY 08/02/19 08/02/19 History [Wixela 250-50 Inhub] Negative: Fever Positive: Palpitations Negative: Shortness Of Breath, Cough Gastrointestinal: Other - positive - constipation Negative: Abdominal Pain, Vomiting, Diarrhea, Nausea Positive: Headache All Other Systems Reviewed And Are Negative: Yes Physical Exam - Summary Physical Exam Summary: General: Well-developed, Well-nourished female. No acute distress. HEENT: Normocephalic, Atraumatic. Eyes: Conjuctiva normal, PERRL. Oropharynx: Clear, mucous membranes moist, (-) exudates. Neck: Soft, FROM, (-) lymphadenopathy, (-) thyromegaly, (-) JVD. Cardiovascular: Normal sinus rhythm, (-) murmur. Lungs: Clear to auscultation bilaterally (-) wheezes, (-) rales, (-) rhonchi. Abdomen: Soft, non-tender, non-distended, (-) organomegaly, normal bowel sounds. Back: (-) CVA tenderness Extremities: No edema. Skin: Warm, dry, (-) rash. Neuro: Alert and oriented x3, moves all extremities equally. No ataxia. No gait disturbance. No sensory deficit. Normal strength, normal sensation. Psychiatric: Mildly anxious appearing. Triage Information Reviewed: Yes Vital Signs On Initial Exam: Initial Vitals Temp Pulse Resp BP Pulse Ox 97.8 F 83 15 153/100 98 08/02/19 03:11 08/02/19 03:11 08/02/19 03:11 08/02/19 03:11 08/02/19 03:11 Vital Signs Reviewed: Yes Procedures - Sedation Patient Received Moderate/Deep Sedation with Procedure: No Diagnostics - Vital Signs Vital Signs Temp Pulse Resp BP Pulse Ox 08/02/19 05:08 78 12 120/84 96 08/02/19 05:00 75 12 97 08/02/19 04:12 72 11 135/88 97 08/02/19 04:00 79 11 97 08/02/19 03:42 74 10 131/93 96 08/02/19 03:24 83 24 98 08/02/19 03:12 83 18 153/100 98 08/02/19 03:11 97.8 F 83 15 153/100 98 - Laboratory Lab Results: Lab Results 08/02/19 08/02/19 08/02/19 Range/Units 04:23 04:23 04:23 WBC 7.8 (3.5-10.8) 10^3/uL RBC 4.49 (3.70-4.87) 10^6 /uL Hgb 13.3 (12.0-16.0) g/dL Hct 40 (35-47) % MCV 89 (80-97) fL MCH 30 (27-31) pg MCHC 33 (31-36) g/dL RDW 14 (10-15) % Plt Count 333 (150-450) 10^3/uL MPV 7.0 L (7.4-10.4) fL Neut % (Auto) 63.7 % Lymph % (Auto) 28.0 % Izard % (Auto) 6.4 % Eos % (Auto) 1.5 % Baso % (Auto) 0.4 % Absolute Neuts (auto) 5.0 (1.5-7.7) 10^3/ul Absolute Lymphs (auto) 2.2 (1.0-4.8) 10^3/ul Absolute Monos (auto) 0.5 (0-0.8) 10^3/ul Absolute Eos (auto) 0.1 (0-0.6) 10^3/ul Absolute Basos (auto) 0.0 (0-0.2) 10^3/ul Absolute Nucleated RBC 0.0 10^3/ul Nucleated RBC % 0.1 INR (Anticoag Therapy) (0.82-1.09) Sodium 140 (135-145) mmol/L Potassium 3.6 (3.5-5.0) mmol/L Chloride 108 (101-111) mmol/L Carbon Dioxide 25 (22-32) mmol/L Anion Gap 7 (2-11) mmol/L BUN 13 (6-24) mg/dL Creatinine 0.80 (0.51-0.95) mg/dL Est GFR ( Amer) 95.2 (>60) Est GFR (Non-Af Amer) 78.7 (>60) BUN/Creatinine Ratio 16.3 (8-20) Glucose 109 H (70-100) mg/dL Lactic Acid 1.0 (0.5-2.0) mmol/L Calcium 9.0 (8.6-10.3) mg/dL Magnesium 2.0 (1.9-2.7) mg/dL Total Bilirubin 0.30 (0.2-1.0) mg/dL AST 20 (13-39) U/L ALT 35 (7-52) U/L Alkaline Phosphatase 160 H (34-104) U/L Troponin I 0.00 (<0.03) ng/mL Total Protein 7.4 (6.4-8.9) g/dL Albumin 4.0 (3.2-5.2) g/dL Globulin 3.4 (2-4) g/dL Albumin/Globulin Ratio 1.2 (1-3) TSH 2.49 (0.34-5.60) mcIU/mL 08/02/19 Range/Units 04:23 WBC (3.5-10.8) 10^3/uL RBC (3.70-4.87) 10^6 /uL Hgb (12.0-16.0) g/dL Hct (35-47) % MCV (80-97) fL MCH (27-31) pg MCHC (31-36) g/dL RDW (10-15) % Plt Count (150-450) 10^3/uL MPV (7.4-10.4) fL Neut % (Auto) % Lymph % (Auto) % Izard % (Auto) % Eos % (Auto) % Baso % (Auto) % Absolute Neuts (auto) (1.5-7.7) 10^3/ul Absolute Lymphs (auto) (1.0-4.8) 10^3/ul Absolute Monos (auto) (0-0.8) 10^3/ul Absolute Eos (auto) (0-0.6) 10^3/ul Absolute Basos (auto) (0-0.2) 10^3/ul Absolute Nucleated RBC 10^3/ul Nucleated RBC % INR (Anticoag Therapy) 0.98 (0.82-1.09) Sodium (135-145) mmol/L Potassium (3.5-5.0) mmol/L Chloride (101-111) mmol/L Carbon Dioxide (22-32) mmol/L Anion Gap (2-11) mmol/L BUN (6-24) mg/dL Creatinine (0.51-0.95) mg/dL Est GFR ( Amer) (>60) Est GFR (Non-Af Amer) (>60) BUN/Creatinine Ratio (8-20) Glucose (70-100) mg/dL Lactic Acid (0.5-2.0) mmol/L Calcium (8.6-10.3) mg/dL Magnesium (1.9-2.7) mg/dL Total Bilirubin (0.2-1.0) mg/dL AST (13-39) U/L ALT (7-52) U/L Alkaline Phosphatase (34-104) U/L Troponin I (<0.03) ng/mL Total Protein (6.4-8.9) g/dL Albumin (3.2-5.2) g/dL Globulin (2-4) g/dL Albumin/Globulin Ratio (1-3) TSH (0.34-5.60) mcIU/mL Result Diagrams: 08/02/19 04:23 08/02/19 04:23 Lab Statement: Any lab studies that have been ordered have been reviewed, and results considered in the medical decision making process. - Radiology CXR Radiology Interpretation Completed By: ED Physician Summary of Radiographic Findings: CXR showed no infiltrate, no pleural effusion , no acute process pending official report. - EKG 0326 Cardiac Rate: NL - rate of 76 BPM EKG Rhythm: Sinus Rhythm Summary of EKG Findings: EKG showed sinus rhythm with rate of 76 BPM, no STEMI. ED physician has reviewed and interpreted this EKG. Course/Dx - Course Course Of Treatment: 44-year-old female presents from home by ambulance with fluttering in her chest. She states it started somewhat yesterday. worse tonight. Feels like fluttering. Her heart beating fast. She was in the emergency room last night with allergy symptoms. Was started on eyedrops at that time. She states she did mention the palpitations at that time but they were not addressed. Also had sinus infection recently and has been at her PCPs. Took a course of antibiotics and prednisone which was finished a few days ago. She does have a new discus inhaler. But that was started a few days ago. She denies any fevers or chills. No chest pain, cough, shortness of breath. No nausea vomiting or diarrhea. She does admit to a lot of stress right now and concern with all of the issues around the pandemic. on physical exam patient has normal vitals upon arrival she is in no apparent distress. Workup is essentially negative. Patient is reassured. Advised follow-up with PCP. Follow sooner for any worsening symptoms. During ED course, patient received Tylenol 975 mg PO. - Diagnoses Provider Diagnoses: Palpitations - Critical Care Time Critical Care Statement: Critical care time is provided exclusive of any time spent performing procedures. Discharge ED - Sign-Out/Discharge Documenting (check all that apply): Patient Departure - discharge - Discharge Plan Condition: Stable Disposition: HOME Patient Education Materials: Heart Palpitations (ED) Referrals: Sameer Renteria MD [Primary Care Provider] - 3 Days Additional Instructions: PLEASE RETURN TO ED FOR ANY NEW OR WORSENING SYMPTOMS. PLEASE FOLLOW UP WITH YOUR PRIMARY CARE PHYSICIAN WITHIN THREE DAYS. - Billing Disposition and Condition Condition: STABLE Disposition: Home - Attestation Statements Document Initiated by Scribe: Yes Documenting Scribe: ELI MILLER Provider For Whom Patricia is Documenting (Include Credential): JOO GARCÍA MD Scribe Attestation: ELI Anderson, scribed for JOO GARCÍA MD on 08/02/19 at 2336. Scribe Documentation Reviewed: Yes Provider Attestation: The documentation as recorded by the scribELI doan accurately reflects the service I personally performed and the decisions made by me, JOO GARCÍA MD Status of Scribe Document: Viewed
[2019-08-02 05:59] VITALS: BP 131/85
--- NOTE | 2019-08-02 10:21 | ED ---
Imaging and Labs Follow Up Follow Up Type: Imaging Imaging Result: IMPRESSION: Mild right greater than left bibasilar airspace opacification (atelectasis versus infiltrate). R2 Preliminary Imaging Read R2 Patient Communication/Plan: Pt. seen for palpitations. Per ER report no report of cough or fever. No change in treatment needed. Provider Diagnoses: Palpitations
== END 2019-08-02 06:09 | disposition home or self-care (01) ==
LOC: ED 03:00
DX: R00.2 Palpitations (principal); K59.00 Constipation, unspecified; R51 Headache; F17.210 Nicotine dependence, cigarettes, uncomplicated; K21.9 Gastro-esophageal reflux disease without esophagitis; F41.9 Anxiety disorder, unspecified; F32.9 Major depressive disorder, single episode, unspecified; Z79.899 Other long term (current) drug therapy; Z88.2 Allergy status to sulfonamides; Z88.0 Allergy status to penicillin; Z91.040 Latex allergy status
CPT/HCPCS: 36415; 71045; 80053; 83605; 83735; 84443; 84484; 85025; 85610; 93005; 99283; A9270-GY